=== PATIENT | male | born 1955 | race Caucasian/White ===

== ENCOUNTER → 2017-01-12 | Outpatient (CLI) | payer OTHER ==
[2017-01-12 12:53] LABS: CHLORIDE,CL 107 mmol/L (98-110); SODIUM,NA 142 mmol/L (136-146)
== END ==
LOC: MW.CHIM 12:10
PROVIDERS: ATTEND Internal Medicine
DX: Z12.5 Encounter for screening for malignant neoplasm of prostate (principal); E78.5 Hyperlipidemia, unspecified; I10 Essential (primary) hypertension; E66.9 Obesity, unspecified
CPT/HCPCS: 36415; 80053; 80061; 83036; 84439; 84443; 85025; G0103

== ENCOUNTER 2019-08-04 08:45 | Observation (INO) | payer OTHER ==
[2019-08-04] MEDS ORDERED: Sodium Chloride 0.9% 10 ML Syringe FLUSH PRN (08:48)
[2019-08-04] MEDS ORDERED: Sodium Chloride 0.9% 2.5 ML Syringe FLUSH PRN (08:48)
--- NOTE | 2019-08-04 08:57 | EDM.PDOC ---
ED HPI GENERAL MEDICAL PROBLEM - General Chief Complaint: Chest Pain Stated Complaint: CHEST PAINS Time Seen by Provider: 08/04/19 08:51 Source of Information: Reports: Patient History Limitations: Reports: No Limitations - History of Present Illness INITIAL COMMENTS - FREE TEXT/NARRATIVE: HISTORY AND PHYSICAL: History of present illness: Patient is a 63-year-old male presents to the ED with complaint of chest pain. He states that it began around 4:30 this morning and has gotten a little bit worse which prompted him come to the ED. He reports history of stents 4 years ago. He denies shortness of breath, nausea, vomiting, diaphoresis, abdominal pain. he states that he currently just has some pain when he takes a deep breath. Review of systems: As per history of present illness and below otherwise all systems reviewed and negative. Past medical history: As per history of present illness and as reviewed below otherwise noncontributory. Surgical history: As per history of present illness and as reviewed below otherwise noncontributory. Social history: No reported history of drug or alcohol abuse. Family history: As per history of present illness and as reviewed below otherwise noncontributory. Physical exam: General: Patient sitting comfortably in no acute distress and nontoxic appearing HEENT: Atraumatic, normocephalic, pupils reactive, negative for conjunctival pallor or scleral icterus, mucous membranes moist, throat clear, neck supple, nontender, trachea midline. No meningeal signs. Lungs: Clear to auscultation, breath sounds equal bilaterally, chest nontender. Heart: S1S2, regular, negative for clicks, rubs, or overt murmur. Abdomen: Soft, nondistended, nontender. Negative for masses or hepatosplenomegaly. Negative for costovertebral tenderness. No rigidity, rebound , guarding. Pelvis: Stable nontender. Genitourinary: Deferred. Rectal: Deferred. Extremities: Atraumatic, negative for cords or calf pain. Neurovascular unremarkable. Neuro: Awake, alert, oriented. Cranial nerves II through XII unremarkable. Cerebellum unremarkable. Motor and sensory unremarkable throughout. Exam nonfocal. Notes: Patients blood pressure dropped to 70s/30s and HR dropped in to the 40s after 2 of nitro. Another IV was placed and 2 boluses running, pacer pads placed. Repeat EKG done which is unchanged from prior EKG. Patient still complaining of chest pain that is more substernal, fentanyl and GI cocktail given. Patient states pain is improved and he can take a bigger breath with fentanyl. Diagnostics: CBC, CMP, troponin, PT/INR, EKG, chest x-ray, d-dimer, lactate, blood culture x 2 Therapeutics: 1L NS IV x 2 Nitro x 2 25mcg fentanyl x 2 GI Cocktail Prescriptions: Impression: Chest pain r/o ACS Plan: Discussed with Dr. Arellano, resident hospitalist, patient will be admitted to observation on telemetry r/o ACS. Definitive disposition and diagnosis as appropriate pending reevaluation and review of above. CHest Pain Score (Numeric/FACES): 8 - Related Data Allergies Allergy/AdvReac Type Severity Reaction Status Date / Time Penicillins Allergy Cannot Verified 08/04/19 08:47 Remember ED ROS GENERAL - Review of Systems Review Of Systems: ROS reveals no pertinent complaints other than HPI. ED EXAM, GENERAL - Physical Exam Exam: See Below (see dictation) Course - Vital Signs Last Recorded V/S: Last Vital Signs Temp 97.8 F 08/04/19 08:48 Pulse 76 08/04/19 10:20 Resp 18 08/04/19 10:20 BP 122/61 08/04/19 10:20 Pulse Ox 99 08/04/19 10:20 - Orders/Labs/Meds Orders: Active Orders 24 hr Category Date Time Status Admission Status [Patient Status] [ADT] Stat ADT 08/04/19 11:32 Ordered Cardiac Monitoring [RC] . DIRECTED Care 08/04/19 08:48 Active EKG 12 Lead [EKG Documentation Completion] [RC] STAT Care 08/04/19 10:04 Active EKG Documentation Completion [RC] STAT Care 08/04/19 08:48 Active Chest PE [Ang Chest] [CT] Stat Exams 08/04/19 10:42 Ordered CULTURE BLOOD [BC] Stat Lab 08/04/19 10:18 Received CULTURE BLOOD [BC] Stat Lab 08/04/19 10:20 Results Nitroglycerin [Nitrostat] Med 08/04/19 09:03 Active 0.4 mg SL Q5M PRN Sodium Chloride 0.9% [Saline Flush] Med 08/04/19 08:48 Active 10 ml FLUSH ASDIRECTED PRN Sodium Chloride 0.9% [Saline Flush] Med 08/04/19 08:48 Active 2.5 ml FLUSH ASDIRECTED PRN Blood Culture x2 Reflex Set [OM.PC] Stat Oth 08/04/19 10:25 Ordered Saline Lock Insert [OM.PC] Stat Ot 08/04/19 08:48 Ordered Medication Orders Nitroglycerin (Nitrostat) 0.4 mg SL Q5M PRN PRN Reason: Chest Pain Last Admin: 08/04/19 09:21 Dose: 0.4 mg Admin: 08/04/19 09:16 Dose: 0.4 mg Sodium Chloride (Saline Flush) 10 ml FLUSH ASDIRECTED PRN PRN Reason: Keep Vein Open Last Admin: 08/04/19 08:59 Dose: 10 ml Sodium Chloride (Saline Flush) 2.5 ml FLUSH ASDIRECTED PRN PRN Reason: Keep Vein Open Last Admin: 08/04/19 08:59 Dose: 2.5 ml Labs: Laboratory Tests 08/04/19 08/04/19 08/04/19 Range/Units 08:30 08:30 08:30 WBC 12.21 H (4.0-11.0) K/uL RBC 4.59 (4.50-5.90) M/uL Hgb 14.2 (13.0-17.0) g/dL Hct 42.0 (38.0-50.0) % MCV 91.5 (80.0-98.0) fL MCH 30.9 (27.0-32.0) pg MCHC 33.8 (31.0-37.0) g/dL RDW Std Deviation 43.6 (28.0-62.0) fl RDW Coeff of Dominga 13 (11.0-15.0) % Plt Count 246 (150-400) K/uL MPV 11.10 (7.40-12.00) fL Neut % (Auto) 80.1 H (48.0-80.0) % Lymph % (Auto) 11.1 L (16.0-40.0) % [place] % (Auto) 8.1 (0.0-15.0) % Eos % (Auto) 0.6 (0.0-7.0) % Baso % (Auto) 0.1 (0.0-1.5) % Neut # (Auto) 9.8 H (1.4-5.7) K/uL Lymph # (Auto) 1.4 (0.6-2.4) K/uL [place] # (Auto) 1.0 H (0.0-0.8) K/uL Eos # (Auto) 0.1 (0.0-0.7) K/uL Baso # (Auto) 0.0 (0.0-0.1) K/uL Nucleated RBC % 0.0 /100WBC Nucleated RBCs # 0 K/uL INR 0.96 D-Dimer, Quantitative (0.0-0.50) mg/L FEU Lactate (0.20-2.00) mmol/L Sodium 142 (136-148) mmol/L Potassium 3.7 (3.5-5.1) mmol/L Chloride 105 (98-107) mmol/L Carbon Dioxide 29.5 (21.0-32.0) mmol/L BUN 10 (7.0-18.0) mg/dL Creatinine 1.0 (0.8-1.3) mg/dL Est Cr Clr Drug Dosing 64.92 mL/min Estimated GFR (MDRD) > 60.0 ml/min Glucose 110 H (74-106) mg/dL Calcium 8.7 (8.5-10.1) mg/dL Total Bilirubin 0.6 (0.2-1.0) mg/dL AST 20 (15-37) IU/L ALT 43 (14-63) IU/L Alkaline Phosphatase 77 (46-116) U/L Troponin I < 0.050 (0.000-0.056) ng/mL Total Protein 7.5 (6.4-8.2) g/dL Albumin 3.9 (3.4-5.0) g/dL Globulin 3.6 (2.6-4.0) g/dL Albumin/Globulin Ratio 1.1 (0.9-1.6) 08/04/19 08/04/19 Range/Units 08:48 10:18 WBC (4.0-11.0) K/uL RBC (4.50-5.90) M/uL Hgb (13.0-17.0) g/dL Hct (38.0-50.0) % MCV (80.0-98.0) fL MCH (27.0-32.0) pg MCHC (31.0-37.0) g/dL RDW Std Deviation (28.0-62.0) fl RDW Coeff of Dominga (11.0-15.0) % Plt Count (150-400) K/uL MPV (7.40-12.00) fL Neut % (Auto) (48.0-80.0) % Lymph % (Auto) (16.0-40.0) % [place] % (Auto) (0.0-15.0) % Eos % (Auto) (0.0-7.0) % Baso % (Auto) (0.0-1.5) % Neut # (Auto) (1.4-5.7) K/uL Lymph # (Auto) (0.6-2.4) K/uL [place] # (Auto) (0.0-0.8) K/uL Eos # (Auto) (0.0-0.7) K/uL Baso # (Auto) (0.0-0.1) K/uL Nucleated RBC % /100WBC Nucleated RBCs # K/uL INR D-Dimer, Quantitative 1.20 H (0.0-0.50) mg/L FEU Lactate 1.0 (0.20-2.00) mmol/L Sodium (136-148) mmol/L Potassium (3.5-5.1) mmol/L Chloride (98-107) mmol/L Carbon Dioxide (21.0-32.0) mmol/L BUN (7.0-18.0) mg/dL Creatinine (0.8-1.3) mg/dL Est Cr Clr Drug Dosing mL/min Estimated GFR (MDRD) ml/min Glucose (74-106) mg/dL Calcium (8.5-10.1) mg/dL Total Bilirubin (0.2-1.0) mg/dL AST (15-37) IU/L ALT (14-63) IU/L Alkaline Phosphatase (46-116) U/L Troponin I (0.000-0.056) ng/mL Total Protein (6.4-8.2) g/dL Albumin (3.4-5.0) g/dL Globulin (2.6-4.0) g/dL Albumin/Globulin Ratio (0.9-1.6) Meds: Medications Generic Name Dose Route Start Last Admin Trade Name Freq PRN Reason Stop Dose Admin Nitroglycerin 0.4 mg 08/04/19 09:03 08/04/19 09:21 Nitrostat SL 0.4 mg Q5M PRN Administration Chest Pain Sodium Chloride 10 ml 08/04/19 08:48 08/04/19 08:59 Saline Flush FLUSH 10 ml ASDIRECTED PRN Administration Keep Vein Open Sodium Chloride 2.5 ml 08/04/19 08:48 08/04/19 08:59 Saline Flush FLUSH 2.5 ml ASDIRECTED PRN Administration Keep Vein Open Discontinued Medications Generic Name Dose Route Start Last Admin Trade Name Freq PRN Reason Stop Dose Admin Al Hydroxide/Mg Hydroxide 15 0 ml 08/04/19 09:58 08/04/19 10:21 ml/ Metoclopramide HCl 5 mg/ PO 08/04/19 09:59 5 each Lidocaine HCl 5 ml ONETIME ONE Administration Fentanyl 25 mcg 08/04/19 09:58 08/04/19 10:07 Sublimaze IVPUSH 08/04/19 09:59 25 mcg ONETIME ONE Administration Fentanyl 25 mcg 08/04/19 10:53 08/04/19 11:19 Fentanyl IVPUSH 08/04/19 10:54 25 mcg ONETIME ONE Administration Sodium Chloride 1,000 mls @ 999 mls/hr 08/04/19 09:04 08/04/19 09:14 Normal Saline IV 08/04/19 10:04 999 mls/hr STAT ONE Administration Sodium Chloride 1,000 mls @ 999 mls/hr 08/04/19 09:30 08/04/19 10:20 Normal Saline IV 08/04/19 10:30 999 mls/hr .Bolus ONE Administration Morphine Sulfate 2 mg 08/04/19 09:56 08/04/19 10:02 Morphine IVPUSH 08/04/19 09:57 Not Given ONETIME ONE Departure - Departure Time of Disposition: 11:34 Disposition: Refer to Observation Condition: Good Clinical Impression: Chest pain Referrals: Agustin Begum MD [Primary Care Provider] - Forms: ED Department Discharge - My Orders Last 24 Hours: My Active Orders 08/04/19 08:48 Cardiac Monitoring [RC] . DIRECTED EKG Documentation Completion [RC] STAT Sodium Chloride 0.9% [Saline Flush] 10 ml FLUSH ASDIRECTED PRN Sodium Chloride 0.9% [Saline Flush] 2.5 ml FLUSH ASDIRECTED PRN Saline Lock Insert [OM.PC] Stat 08/04/19 09:03 Nitroglycerin [Nitrostat] 0.4 mg SL Q5M PRN 08/04/19 10:04 EKG 12 Lead [EKG Documentation Completion] [RC] STAT 08/04/19 10:18 CULTURE BLOOD [BC] Stat 08/04/19 10:20 CULTURE BLOOD [BC] Stat 08/04/19 10:25 Blood Culture x2 Reflex Set [OM.PC] Stat 08/04/19 10:42 Chest PE [Ang Chest] [CT] Stat 08/04/19 11:32 Admission Status [Patient Status] [ADT] Stat - Assessment/Plan Last 24 Hours: My Active Orders 08/04/19 08:48 Cardiac Monitoring [RC] . DIRECTED EKG Documentation Completion [RC] STAT Sodium Chloride 0.9% [Saline Flush] 10 ml FLUSH ASDIRECTED PRN Sodium Chloride 0.9% [Saline Flush] 2.5 ml FLUSH ASDIRECTED PRN Saline Lock Insert [OM.PC] Stat 08/04/19 09:03 Nitroglycerin [Nitrostat] 0.4 mg SL Q5M PRN 08/04/19 10:04 EKG 12 Lead [EKG Documentation Completion] [RC] STAT 08/04/19 10:18 CULTURE BLOOD [BC] Stat 08/04/19 10:20 CULTURE BLOOD [BC] Stat 08/04/19 10:25 Blood Culture x2 Reflex Set [OM.PC] Stat 08/04/19 10:42 Chest PE [Ang Chest] [CT] Stat 08/04/19 11:32 Admission Status [Patient Status] [ADT] Stat
[2019-08-04] MEDS ORDERED: Sodium Chloride 0.9% 1,000 ML IV ONE ×2 (09:04→09:30)
[2019-08-04] MEDS: Nitroglycerin 0.4 MG Tab.SL SL PRN ×2 (09:16→09:21)
--- NOTE | 2019-08-04 09:26 | CR ---
Indication: Chest pain. COMPARISON: None. TECHNIQUE: Portable AP chest. FINDINGS: Mild cardiomegaly. No acute pneumonic infiltrates or CHF. No pneumothorax or pleural effusion. Impression: Cardiomegaly. 1. Clear lung noguera. Dictated by Luis Lozada MD @ Aug 04 2019 9:22AM Signed by Dr. Luis Lozada @ Aug 04 2019 9:24AM
[2019-08-04 09:36] LABS: BLOOD UREA NITROGEN,BUN 10 mg/dL (7.0-18.0); CARBON DIOXIDE,CO2 29.5 mmol/L (21.0-32.0); CHLORIDE,CL 105 mmol/L (98-107); GLUCOSE RANDOM 110 mg/dL (74-106); POTASSIUM,K 3.7 mmol/L (3.5-5.1); SODIUM,NA 142 mmol/L (136-148)
[2019-08-04] MEDS ORDERED: Morphine 2 MG/ML Syringe IVPUSH ONE (09:56)
[2019-08-04] MEDS ORDERED: Alum Hydrox/Mag Hydrox/Simeth 15 ML, Metoclopramide 5 MG, Lidocaine 2% 5 ML PO ONE ×3 (09:58)
[2019-08-04] MEDS ORDERED: fentaNYL 100 MCG/2 ML SDV IVPUSH ONE (09:58)
[2019-08-04] MEDS ORDERED: fentaNYL 50 MCG/ML SDV IVPUSH ONE (10:53)
[2019-08-04] MEDS ORDERED: Acetaminophen 325 MG Tab PO PRN (11:43)
[2019-08-04] MEDS ORDERED: Ondansetron 4 MG Tab.DIS PO PRN (11:43)
[2019-08-04] MEDS ORDERED: Ondansetron 4 MG/2 ML SDV IVPUSH PRN (11:43)
[2019-08-04] MEDS ORDERED: Temazepam 15 MG Cap PO PRN (11:43)
--- NOTE | 2019-08-04 11:49 | PCM.HP.2 ---
H&P History of Present Illness - General Date of Service: 08/04/19 Admit Problem/Dx: Admission Diagnosis/Problem Admission Diagnosis/Problem Chest pain - History of Present Illness Initial Comments - Free Text/Narative: 63 y/o male with history of CAD s/p stent placement 5 years ago. Presenting to the ER complaining of sharp upper chest pain that started this morning. Patient woke up this morning after his dog woke him up and he states that shortly after he started having sharp upper chest pain. No radiation to neck or arm. Lasting few minutes. states worse with inspirations. Denies any trauma to chest. He does have history of asthma for which he takes Advair and albuterol. Denies any cough, fevers. No abdominal pain, dysuria, diarrhea. Has been taking his medications as directed. No smoking. Occasional alcohol. In the ER, he was given nitroglycerin which lowered his BP to SBP 80's. Low BP resolved after fluids. Troponin was negative. EKG did not show any significant ST changes. D-dimer was elevated and CT angio was ordered which patient was unable to do because of poor veins. I spoke with the patient and he states he would like to retry again since he is still having pleuritic chest pain. CHest Pain Score (Numeric/FACES): 8 - Related Data Allergies/Adverse Reactions: Allergies Allergy/AdvReac Type Severity Reaction Status Date / Time Penicillins Allergy Airway Verified 08/04/19 14:16 Tightness Home Medications: Home Meds Albuterol [Ventolin HFA] 2 puff INH ASDIRECTED PRN 08/04/19 [History] Clopidogrel [Plavix] 75 mg PO DAILY 08/04/19 [History] Fluticasone/Salmeterol [Advair 250-50] 1 puff IH DAILY 08/04/19 [History] Lisinopril 5 mg PO DAILY 08/04/19 [History] Metoprolol Succinate [Toprol XL 50mg] 50 mg PO DAILY 08/04/19 [History] atorvaSTATin Calcium [Atorvastatin Calcium] 20 mg PO BEDTIME 08/04/19 [History] Past Medical History HEENT History: Reports: Impaired Vision Cardiovascular History: Reports: High Cholesterol, Hypertension, [place] Respiratory History: Reports: Asthma Musculoskeletal History: Reports: None Neurological History: Reports: CVA Psychiatric History: Reports: Depression - Infectious Disease History Infectious Disease History: Reports: Shingles - Past Surgical History HEENT Surgical History: Reports: None Cardiovascular Surgical History: Reports: Coronary Artery Stent Respiratory Surgical History: Reports: None Neurological Surgical History: Reports: None Musculoskeletal Surgical History: Reports: Knee Replacement Other Musculoskeletal Surgeries/Procedures:: Left knee Social & Family History - Family History Family Medical History: Noncontributory - Tobacco Use Smoking Status *Q: Never Smoker - Caffeine Use Caffeine Use: Reports: Tea - Recreational Drug Use Recreational Drug Use: No H&P Review of Systems - Review of Systems: Review Of Systems: ROS reveals no pertinent complaints other than HPI. Exam - Exam Exam: See Below - Vital Signs Vital Signs: Last Vital Signs Temp 36.6 C 08/04/19 08:48 Pulse 76 08/04/19 10:20 Resp 18 08/04/19 10:20 BP 122/61 08/04/19 10:20 Pulse Ox 99 08/04/19 10:20 Weight: 103.6 kg - Exam General: Alert, Oriented, Cooperative HEENT: Conjunctiva Clear, Posterior Pharynx Clear Lungs: Other (decreased breath sounds bilaterally. No full expansion due to pain. No wheezing. Some bibasilar crackles.) Cardiovascular: Regular Rate, Regular Rhythm GI/Abdominal Exam: Normal Bowel Sounds, Soft, Non-Tender Extremities: Normal Inspection, No Pedal Edema Skin: Warm, Dry - Patient Data Lab Results Last 24 hrs: Laboratory Results - last 24 hr 08/04/19 08/04/19 08/04/19 Range/Units 08:30 08:30 08:30 WBC 12.21 H (4.0-11.0) K/uL RBC 4.59 (4.50-5.90) M/uL Hgb 14.2 (13.0-17.0) g/dL Hct 42.0 (38.0-50.0) % MCV 91.5 (80.0-98.0) fL MCH 30.9 (27.0-32.0) pg MCHC 33.8 (31.0-37.0) g/dL RDW Std Deviation 43.6 (28.0-62.0) fl RDW Coeff of Dominga 13 (11.0-15.0) % Plt Count 246 (150-400) K/uL MPV 11.10 (7.40-12.00) fL Neut % (Auto) 80.1 H (48.0-80.0) % Lymph % (Auto) 11.1 L (16.0-40.0) % [place] % (Auto) 8.1 (0.0-15.0) % Eos % (Auto) 0.6 (0.0-7.0) % Baso % (Auto) 0.1 (0.0-1.5) % Neut # (Auto) 9.8 H (1.4-5.7) K/uL Lymph # (Auto) 1.4 (0.6-2.4) K/uL [place] # (Auto) 1.0 H (0.0-0.8) K/uL Eos # (Auto) 0.1 (0.0-0.7) K/uL Baso # (Auto) 0.0 (0.0-0.1) K/uL Nucleated RBC % 0.0 /100WBC Nucleated RBCs # 0 K/uL INR 0.96 D-Dimer, Quantitative (0.0-0.50) mg/L FEU Lactate (0.20-2.00) mmol/L Sodium 142 (136-148) mmol/L Potassium 3.7 (3.5-5.1) mmol/L Chloride 105 (98-107) mmol/L Carbon Dioxide 29.5 (21.0-32.0) mmol/L BUN 10 (7.0-18.0) mg/dL Creatinine 1.0 (0.8-1.3) mg/dL Est Cr Clr Drug Dosing 64.92 mL/min Estimated GFR (MDRD) > 60.0 ml/min Glucose 110 H (74-106) mg/dL Calcium 8.7 (8.5-10.1) mg/dL Total Bilirubin 0.6 (0.2-1.0) mg/dL AST 20 (15-37) IU/L ALT 43 (14-63) IU/L Alkaline Phosphatase 77 (46-116) U/L Troponin I < 0.050 (0.000-0.056) ng/mL Total Protein 7.5 (6.4-8.2) g/dL Albumin 3.9 (3.4-5.0) g/dL Globulin 3.6 (2.6-4.0) g/dL Albumin/Globulin Ratio 1.1 (0.9-1.6) 08/04/19 08/04/19 Range/Units 08:48 10:18 WBC (4.0-11.0) K/uL RBC (4.50-5.90) M/uL Hgb (13.0-17.0) g/dL Hct (38.0-50.0) % MCV (80.0-98.0) fL MCH (27.0-32.0) pg MCHC (31.0-37.0) g/dL RDW Std Deviation (28.0-62.0) fl RDW Coeff of Doming[place] (11.0-15.0) % Plt Count (150-400) K/uL MPV (7.40-12.00) fL Neut % (Auto) (48.0-80.0) % Lymph % (Auto) (16.0-40.0) % [place] % (Auto) (0.0-15.0) % Eos % (Auto) (0.0-7.0) % Baso % (Auto) (0.0-1.5) % Neut # (Auto) (1.4-5.7) K/uL Lymph # (Auto) (0.6-2.4) K/uL [place] # (Auto) (0.0-0.8) K/uL Eos # (Auto) (0.0-0.7) K/uL Baso # (Auto) (0.0-0.1) K/uL Nucleated RBC % /100WBC Nucleated RBCs # K/uL INR D-Dimer, Quantitative 1.20 H (0.0-0.50) mg/L FEU Lactate 1.0 (0.20-2.00) mmol/L Sodium (136-148) mmol/L Potassium (3.5-5.1) mmol/L Chloride (98-107) mmol/L Carbon Dioxide (21.0-32.0) mmol/L BUN (7.0-18.0) mg/dL Creatinine (0.8-1.3) mg/dL Est Cr Clr Drug Dosing mL/min Estimated GFR (MDRD) ml/min Glucose (74-106) mg/dL Calcium (8.5-10.1) mg/dL Total Bilirubin (0.2-1.0) mg/dL AST (15-37) IU/L ALT (14-63) IU/L Alkaline Phosphatase (46-116) U/L Troponin I (0.000-0.056) ng/mL Total Protein (6.4-8.2) g/dL Albumin (3.4-5.0) g/dL Globulin (2.6-4.0) g/dL Albumin/Globulin Ratio (0.9-1.6) Result Diagrams: 08/04/19 08:30 08/04/19 08:30 [place] Results Last 24 hrs: Microbiology 08/04/19 10:20 Anaerobic Blood Culture - Final Blood - Venous - Lab Draw Problem List Initiated/Reviewed/Updated: Yes Orders Last 24hrs: Active Orders 24 hr Category Date Time Status Admission Status [Patient Status] [ADT] Stat ADT 08/04/19 11:32 Active Cardiac Monitoring [RC] . DIRECTED Care 08/04/19 08:48 Active EKG 12 Lead [EKG Documentation Completion] [RC] STAT Care 08/04/19 10:04 Active EKG Documentation Completion [RC] STAT Care 08/04/19 08:48 Active Intake and Output [RC] QSHIFT Care 08/04/19 11:45 Active Oxygen Therapy [RC] PRN Care 08/04/19 11:43 Active Up With Assistance [RC] ASDIRECTED Care 08/04/19 11:43 Active VTE/DVT Education [RC] PER UNIT ROUTINE Care 08/04/19 11:43 Active Vital Signs [RC] Q4H Care 08/04/19 11:43 Active Heart Healthy Diet [DIET] Diet 08/04/19 Lunch Active Chest PE [Ang Chest] [CT] Stat Exams 08/04/19 10:42 Ordered CULTURE BLOOD [BC] Stat Lab 08/04/19 10:18 Received CULTURE BLOOD [BC] Stat Lab 08/04/19 10:20 Results TROPONIN I [CHEM] Q6H Lab 08/04/19 14:00 Ordered TROPONIN I [CHEM] Q6H Lab 08/04/19 20:00 Ordered Acetaminophen [Tylenol] Med 08/04/19 11:43 Active 650 mg PO Q4H PRN Enoxaparin [Lovenox] Med 08/04/19 11:45 Active 40 mg SUBCUT Q24H Morphine Med 08/04/19 11:43 Active 2 mg IVPUSH Q2H PRN Nitroglycerin [Nitrostat] Med 08/04/19 09:03 Active 0.4 mg SL Q5M PRN Ondansetron [Zofran ODT] Med 08/04/19 11:43 Active 4 mg PO Q4H PRN Ondansetron [Zofran] Med 08/04/19 11:43 Active 4 mg IVPUSH Q4H PRN Sodium Chloride 0.9% [Saline Flush] Med 08/04/19 08:48 Active 10 ml FLUSH ASDIRECTED PRN Sodium Chloride 0.9% [Saline Flush] Med 08/04/19 08:48 Active 2.5 ml FLUSH ASDIRECTED PRN Temazepam [Restoril] Med 08/04/19 11:43 Active 15 mg PO BEDTIME PRN Blood Culture x2 Reflex Set [OM.PC] Stat Oth 08/04/19 10:25 Ordered Saline Lock Insert [OM.PC] Stat Oth 08/04/19 08:48 Ordered Resuscitation Status Routine Resus Stat 08/04/19 11:43 Ordered Medication Orders Acetaminophen (Tylenol) 650 mg PO Q4H PRN PRN Reason: Pain (Mild 1-3)/fever Enoxaparin Sodium (Lovenox) 40 mg SUBCUT Q24H GERALDINE Morphine Sulfate (Morphine) 2 mg IVPUSH Q2H PRN PRN Reason: Pain (severe 7-10) Stop: 08/05/19 11:46 Nitroglycerin (Nitrostat) 0.4 mg SL Q5M PRN PRN Reason: Chest Pain Last Admin: 08/04/19 09:21 Dose: 0.4 mg Admin: 08/04/19 09:16 Dose: 0.4 mg Ondansetron HCl (Zofran Odt) 4 mg PO Q4H PRN PRN Reason: nausea, able to take PO Ondansetron HCl (Zofran) 4 mg IVPUSH Q4H PRN PRN Reason: Nausea Sodium Chloride (Saline Flush) 10 ml FLUSH ASDIRECTED PRN PRN Reason: Keep Vein Open Last Admin: 08/04/19 08:59 Dose: 10 ml Sodium Chloride (Saline Flush) 2.5 ml FLUSH ASDIRECTED PRN PRN Reason: Keep Vein Open Last Admin: 08/04/19 08:59 Dose: 2.5 ml Temazepam (Restoril) 15 mg PO BEDTIME PRN PRN Reason: Sleep Assessment/Plan Comment:: A: 1. Chest pain, rule out ACS 2. Elevated d-dimer 3. PMH CAD s/p stent placement, asthma P: 1. Will repeat CT chest w contrast due to patients continued pleuritic chest pain to rule out PE. In addition, will trend troponins. Monitor telemetry. Morphine, nitroglycerin PRN for chest pain. will resume his home meds which include plavix, aspirin. If CT chest is negative, will start steroids and see if that helps with his respiratory symptoms. Dispo: 1-2 days.
[2019-08-04] MEDS ORDERED: Albuterol/Ipratropium 3.0-0.5 MG/3 ML Neb Soln NEB ONE (13:19)
[2019-08-04] MEDS: Morphine 10 MG/ML Syringe IVPUSH PRN ×3 (13:31→21:29)
[2019-08-04] MEDS: Enoxaparin 40 MG/0.4 ML Syringe SUBCUT SCH (13:38)
[2019-08-04] MEDS ORDERED: Albuterol 8 GM Inhaler INH PRN (15:22)
--- NOTE | 2019-08-04 17:06 | CT ---
INDICATION: Chest pain, elevated D-dimer TECHNIQUE: CT chest pulmonary PE protocol acquired with 50 cc Isovue 370 IV contrast. COMPARISON: None FINDINGS: Cardiovascular structures: Normal vascular enhancement of the pulmonary arteries, no sign of pulmonary embolism. Cardiomegaly. Coronary artery calcifications. No sign of aneurysm in the thoracic aorta. Mediastinum and corine: No mass or adenopathy. Small hiatal hernia. Lungs: Clear. Pleura and pericardium: Moderate-sized pericardial effusion measures 15 Hounsfield units in density. Trace bilateral pleural effusions. Chest wall and axilla: No mass or adenopathy. Upper abdomen: Unremarkable. Bones: No significant findings. IMPRESSION: No pulmonary embolism or pneumonia. Moderate-sized serous pericardial effusion. Cardiomegaly with coronary artery disease. Trace bilateral pleural effusions. Small hiatal hernia. Please note that all CT scans at this facility use dose modulation, iterative reconstruction, and/or weight-based dosing when appropriate to reduce radiation dose to as low as reasonably achievable. Dictated by Elissa Briones MD @ Aug 04 2019 4:47PM Signed by Dr. Elissa Briones @ Aug 04 2019 5:04PM
[2019-08-04] MEDS ORDERED: Iopamidol 755 MG/ML 500 ML Multipack Bottle IVPUSH STA (17:45)
[2019-08-04] MEDS: Ibuprofen 600 MG Tab PO SCH (19:17)
[2019-08-04] MEDS: atorvaSTATin 20 MG Tab PO SCH (21:27)
[2019-08-05] MEDS: Ibuprofen 600 MG Tab PO SCH (02:40)
[2019-08-05 06:09] LABS: BLOOD UREA NITROGEN,BUN 13 mg/dL (7.0-18.0); CARBON DIOXIDE,CO2 25.8 mmol/L (21.0-32.0); CHLORIDE,CL 107 mmol/L (98-107); GLUCOSE RANDOM 105 mg/dL (74-106); POTASSIUM,K 3.8 mmol/L (3.5-5.1); SODIUM,NA 142 mmol/L (136-148)
[2019-08-05] MEDS: Albuterol/Ipratropium 3.0-0.5 MG/3 ML Neb Soln NEB PRN ×2 (07:56→19:32)
[2019-08-05] MEDS: SALMETEROL INH SCH (08:05)
[2019-08-05] MEDS: FLUTICASONE INH SCH (08:05)
[2019-08-05] MEDS ORDERED: Aspirin 81 MG Tab.Chew PO SCH (09:00)
[2019-08-05] MEDS: Pantoprazole 40 MG Tab.CR PO SCH (09:56)
[2019-08-05] MEDS: Clopidogrel 75 MG Tab PO SCH (09:56)
[2019-08-05] MEDS: Aspirin 325 MG Tab.EC PO SCH ×2 (09:57→17:50)
[2019-08-05] MEDS: Lisinopril 5 MG Tab PO SCH (09:57)
[2019-08-05] MEDS: Metoprolol Succinate 50 MG Tab.ER PO SCH (10:03)
[2019-08-05] MEDS: Enoxaparin 40 MG/0.4 ML Syringe SUBCUT SCH (11:51)
--- NOTE | 2019-08-05 13:47 | PCM.PN ---
<Camron Salazar - Last Filed: 08/05/19 13:41> - General Info Date of Service: 08/05/19 Subjective Update: No acute events overnight. feeling better this morning. states chest pain has improved. No fevers. - Patient Data Vitals - Most Recent: Last Vital Signs Temp 36.9 C 08/05/19 11:49 Pulse 92 08/05/19 11:49 Resp 17 08/05/19 11:49 BP 129/71 08/05/19 11:49 Pulse Ox 96 08/05/19 11:49 Weight - Most Recent: 103.6 kg I&O - Last 24 Hours: Intake & Output 08/04/19 08/05/19 08/05/19 22:59 06:59 14:59 Intake Total 500 250 Output Total 200 Balance 300 250 Lab Results Last 24 Hours: Laboratory Results - last 24 hr 08/04/19 08/04/19 08/04/19 Range/Units 08:30 08:30 14:12 WBC (4.0-11.0) K/uL RBC (4.50-5.90) M/uL Hgb (13.0-17.0) g/dL Hct (38.0-50.0) % MCV (80.0-98.0) fL MCH (27.0-32.0) pg MCHC (31.0-37.0) g/dL RDW Std Deviation (28.0-62.0) fl RDW Coeff of Doming[place] (11.0-15.0) % Plt Count (150-400) K/uL MPV (7.40-12.00) fL Neut % (Auto) (48.0-80.0) % Lymph % (Auto) (16.0-40.0) % [place] % (Auto) (0.0-15.0) % Eos % (Auto) (0.0-7.0) % Baso % (Auto) (0.0-1.5) % Neut # (Auto) (1.4-5.7) K/uL Lymph # (Auto) (0.6-2.4) K/uL [place] # (Auto) (0.0-0.8) K/uL Eos # (Auto) (0.0-0.7) K/uL Baso # (Auto) (0.0-0.1) K/uL Nucleated RBC % /100WBC Nucleated RBCs # K/uL ESR 27 H (0-19) mm/hr Sodium (136-148) mmol/L Potassium (3.5-5.1) mmol/L Chloride (98-107) mmol/L Carbon Dioxide (21.0-32.0) mmol/L BUN (7.0-18.0) mg/dL Creatinine (0.8-1.3) mg/dL Est Cr Clr Drug Dosing mL/min Estimated GFR (MDRD) ml/min Glucose (74-106) mg/dL Calcium (8.5-10.1) mg/dL Total Bilirubin (0.2-1.0) mg/dL AST (15-37) IU/L ALT (14-63) IU/L Alkaline Phosphatase (46-116) U/L Troponin I < 0.050 (0.000-0.056) ng/mL C-Reactive Protein 3.80 H (0.00-0.90) mg/dL Total Protein (6.4-8.2) g/dL Albumin (3.4-5.0) g/dL Globulin (2.6-4.0) g/dL Albumin/Globulin Ratio (0.9-1.6) 08/04/19 08/05/19 08/05/19 Range/Units 20:11 05:40 05:40 WBC 9.80 (4.0-11.0) K/uL RBC 3.88 L (4.50-5.90) M/uL Hgb 11.9 L (13.0-17.0) g/dL Hct 35.6 L (38.0-50.0) % MCV 91.8 (80.0-98.0) fL MCH 30.7 (27.0-32.0) pg MCHC 33.4 (31.0-37.0) g/dL RDW Std Deviation 44.6 (28.0-62.0) fl RDW Coeff of Doming[place] 13 (11.0-15.0) % Plt Count 206 (150-400) K/uL MPV 10.40 (7.40-12.00) fL Neut % (Auto) 69.9 (48.0-80.0) % Lymph % (Auto) 15.8 L (16.0-40.0) % [place] % (Auto) 13.9 (0.0-15.0) % Eos % (Auto) 0.3 (0.0-7.0) % Baso % (Auto) 0.1 (0.0-1.5) % Neut # (Auto) 6.9 H (1.4-5.7) K/uL Lymph # (Auto) 1.6 (0.6-2.4) K/uL [place] # (Auto) 1.4 H (0.0-0.8) K/uL Eos # (Auto) 0.0 (0.0-0.7) K/uL Baso # (Auto) 0.0 (0.0-0.1) K/uL Nucleated RBC % 0.0 /100WBC Nucleated RBCs # 0 K/uL ESR (0-19) mm/hr Sodium 142 (136-148) mmol/L Potassium 3.8 (3.5-5.1) mmol/L Chloride 107 (98-107) mmol/L Carbon Dioxide 25.8 (21.0-32.0) mmol/L BUN 13 (7.0-18.0) mg/dL Creatinine 1.0 (0.8-1.3) mg/dL Est Cr Clr Drug Dosing 67.34 mL/min Estimated GFR (MDRD) > 60.0 ml/min Glucose 105 (74-106) mg/dL Calcium 8.4 L (8.5-10.1) mg/dL Total Bilirubin 1.4 H (0.2-1.0) mg/dL AST 10 L (15-37) IU/L ALT 27 (14-63) IU/L Alkaline Phosphatase 56 (46-116) U/L Troponin I < 0.050 (0.000-0.056) ng/mL C-Reactive Protein (0.00-0.90) mg/dL Total Protein 6.1 L (6.4-8.2) g/dL Albumin 3.1 L (3.4-5.0) g/dL Globulin 3.0 (2.6-4.0) g/dL Albumin/Globulin Ratio 1.0 (0.9-1.6) 08/05/19 08/05/19 Range/Units 05:40 05:40 WBC (4.0-11.0) K/uL RBC (4.50-5.90) M/uL Hgb (13.0-17.0) g/dL Hct (38.0-50.0) % MCV (80.0-98.0) fL MCH (27.0-32.0) pg MCHC (31.0-37.0) g/dL RDW Std Deviation (28.0-62.0) fl RDW Coeff of Dominga (11.0-15.0) % Plt Count (150-400) K/uL MPV (7.40-12.00) fL Neut % (Auto) (48.0-80.0) % Lymph % (Auto) (16.0-40.0) % [place] % (Auto) (0.0-15.0) % Eos % (Auto) (0.0-7.0) % Baso % (Auto) (0.0-1.5) % Neut # (Auto) (1.4-5.7) K/uL Lymph # (Auto) (0.6-2.4) K/uL [place] # (Auto) (0.0-0.8) K/uL Eos # (Auto) (0.0-0.7) K/uL Baso # (Auto) (0.0-0.1) K/uL Nucleated RBC % /100WBC Nucleated RBCs # K/uL ESR 38 H (0-19) mm/hr Sodium (136-148) mmol/L Potassium (3.5-5.1) mmol/L Chloride (98-107) mmol/L Carbon Dioxide (21.0-32.0) mmol/L BUN (7.0-18.0) mg/dL Creatinine (0.8-1.3) mg/dL Est Cr Clr Drug Dosing mL/min Estimated GFR (MDRD) ml/min Glucose (74-106) mg/dL Calcium (8.5-10.1) mg/dL Total Bilirubin (0.2-1.0) mg/dL AST (15-37) IU/L ALT (14-63) IU/L Alkaline Phosphatase (46-116) U/L Troponin I (0.000-0.056) ng/mL C-Reactive Protein 17.00 H (0.00-0.90) mg/dL Total Protein (6.4-8.2) g/dL Albumin (3.4-5.0) g/dL Globulin (2.6-4.0) g/dL Albumin/Globulin Ratio (0.9-1.6) [place] Results Last 24 Hours: Microbiology 08/04/19 10:20 Aerobic Blood Culture - Preliminary Blood - Venous - Lab Draw NO GROWTH AFTER 1 DAY Anaerobic Blood Culture - Final 08/04/19 10:18 Aerobic Blood Culture - Preliminary Blood - Venous NO GROWTH AFTER 1 DAY Anaerobic Blood Culture - Preliminary NO GROWTH AFTER 1 DAY Med Orders - Current: Current Medications Acetaminophen (Tylenol) 650 mg PO Q4H PRN PRN Reason: Pain (Mild 1-3)/fever Albuterol (Ventolin Hfa) 0 gm INH Q6H PRN PRN Reason: Wheezing Albuterol/Ipratropium (Duoneb 3.0-0.5 Mg/3 Ml) 3 ml NEB Q4HRRT PRN PRN Reason: sob, wheezingh Last Admin: 08/05/19 07:56 Dose: 3 ml Aspirin (Ecotrin) 650 mg PO Q8H [facility] Last Admin: 08/05/19 09:57 Dose: 650 mg Atorvastatin Calcium (Lipitor) 20 mg PO BEDTIME [facility] Last Admin: 08/04/19 21:27 Dose: 20 mg Clopidogrel Bisulfate (Plavix) 75 mg PO DAILY [facility] Last Admin: 08/05/19 09:56 Dose: 75 mg Enoxaparin Sodium (Lovenox) 40 mg SUBCUT Q24H [facility] Last Admin: 08/05/19 11:51 Dose: 40 mg Influenza Virus Vaccine (Fluzone Quad 3036-0809 Syringe) 60 mcg IM .ONCE ONE Stop: 08/05/19 14:16 Lisinopril (Prinivil) 5 mg PO DAILY [facility] Last Admin: 08/05/19 09:57 Dose: 5 mg Metoprolol Succinate (Toprol Xl) 50 mg PO DAILY [facility] Last Admin: 08/05/19 10:03 Dose: 50 mg Ondansetron HCl (Zofran Odt) 4 mg PO Q4H PRN PRN Reason: nausea, able to take PO Ondansetron HCl (Zofran) 4 mg IVPUSH Q4H PRN PRN Reason: Nausea Pantoprazole Sodium (Protonix) 40 mg PO ACBREAKFAST [facility] Last Admin: 08/05/19 09:56 Dose: 40 mg Fluticasone/Salmeterol (Advair Diskus 250-50) 0 puff INH DAILY [facility] Last Admin: 08/05/19 08:05 Dose: 1 inhalation Sodium Chloride (Saline Flush) 10 ml FLUSH ASDIRECTED PRN PRN Reason: Keep Vein Open Last Admin: 08/04/19 08:59 Dose: 10 ml Sodium Chloride (Saline Flush) 2.5 ml FLUSH ASDIRECTED PRN PRN Reason: Keep Vein Open Last Admin: 08/04/19 08:59 Dose: 2.5 ml Temazepam (Restoril) 15 mg PO BEDTIME PRN PRN Reason: Sleep Discontinued Medications Albuterol/Ipratropium (Duoneb 3.0-0.5 Mg/3 Ml) 3 ml NEB ONETIME ONE Stop: 08/04/19 13:20 Last Admin: 08/04/19 13:33 Dose: 3 ml Aspirin (Aspirin) 81 mg PO DAILY [facility] Last Admin: 08/05/19 10:36 Dose: Not Given Al Hydroxide/Mg Hydroxide 15 ml/ Metoclopramide HCl 5 mg/Lidocaine HCl 5 ml 0 ml PO ONETIME ONE Stop: 08/04/19 09:59 Last Admin: 08/04/19 10:21 Dose: 5 each Fentanyl (Sublimaze) 25 mcg IVPUSH ONETIME ONE Stop: 08/04/19 09:59 Last Admin: 08/04/19 10:07 Dose: 25 mcg Fentanyl (Fentanyl) 25 mcg IVPUSH ONETIME ONE Stop: 08/04/19 10:54 Last Admin: 08/04/19 11:19 Dose: 25 mcg Sodium Chloride (Normal Saline) 1,000 mls @ 999 mls/hr IV STAT ONE Stop: 08/04/19 10:04 Last Admin: 08/04/19 09:14 Dose: 999 mls/hr Sodium Chloride (Normal Saline) 1,000 mls @ 999 mls/hr IV .Bolus ONE Stop: 08/04/19 10:30 Last Admin: 08/04/19 10:20 Dose: 999 mls/hr Ibuprofen (Motrin) 600 mg PO Q8H [facility] Last Admin: 08/05/19 02:40 Dose: 600 mg Influenza Virus Vaccine (Pharmacy To Dose - Influenza Vaccine) 1 each IM ONETIME ONE Stop: 08/04/19 14:10 Last Admin: 08/04/19 15:53 Dose: Not Given Iopamidol (Isovue Multipack-370 (76%)) 50 ml IVPUSH ONETIME STA Stop: 08/04/19 17:46 Last Admin: 08/04/19 17:46 Dose: 50 ml Morphine Sulfate (Morphine) 2 mg IVPUSH ONETIME ONE Stop: 08/04/19 09:57 Last Admin: 08/04/19 10:02 Dose: Not Given Morphine Sulfate (Morphine) 2 mg IVPUSH Q2H PRN PRN Reason: Pain (severe 7-10) Stop: 08/05/19 11:46 Last Admin: 08/04/19 21:29 Dose: 2 mg Nitroglycerin (Nitrostat) 0.4 mg SL Q5M PRN PRN Reason: Chest Pain Last Admin: 08/04/19 09:21 Dose: 0.4 mg - Exam General: Alert, Oriented, Cooperative, No Acute Distress Lungs: Clear to Auscultation, Normal Respiratory Effort. No: Crackles, Wheezing GI/Abdominal Exam: Normal Bowel Sounds, Soft, Non-Tender, No Distention Extremities: Normal Inspection, Pedal Edema Skin: Warm, Dry - Problem List Review Problem List Initiated/Reviewed/Updated: Yes - My Orders Last 24 Hours: My Active Orders 08/04/19 13:19 RT Aerosol Therapy [RC] ASDIRECTED 08/04/19 13:47 Albuterol/Ipratropium [DuoNeb 3.0-0.5 MG/3 ML] 3 ml NEB Q4HRRT PRN 08/04/19 15:22 Albuterol [Ventolin HFA] 0 gm INH Q6H PRN 08/04/19 15:25 Echo Comp wo Cont [US] Routine 08/04/19 21:00 atorvaSTATin [Lipitor] 20 mg PO BEDTIME 08/05/19 09:00 Clopidogrel [Plavix] 75 mg PO DAILY Fluticasone/Salmeterol [Advair Diskus 250-50] 0 puff INH DAILY Lisinopril [Prinivil] 5 mg PO DAILY Metoprolol Succinate [Toprol XL] 50 mg PO DAILY 08/05/19 09:15 Aspirin [Ecotrin] 650 mg PO Q8H Pantoprazole [ProTONIX] 40 mg PO ACBREAKFAST - Plan Plan:: A: 1. Acute pericarditis 2. Moderate pericardial effusion 3. Elevated inflammatory markers 4. Chest pain, ruled out ACS, negative troponins 5. PMH CAD s/p stent placement, asthma P: 1. acute pericarditis- will start aspirin 650 mg PO Q8H. Tried calling Dr. Luis today but he is in [place]. Will continue to monitor today and call Dr. Luis tomorrow to evaluate pericardial effusion. 2. CAD s/p stents- continue with home meds for now. dispo: likely dc tomorrow <Vincent Coreas - Last Filed: 08/06/19 14:09> - Patient Data Vitals - Most Recent: Last Vital Signs Temp 36.8 C 08/06/19 11:59 Pulse 98 08/06/19 11:59 Resp 20 08/06/19 11:59 BP 127/67 08/06/19 11:59 Pulse Ox 97 08/06/19 11:59 I&O - Last 24 Hours: Intake & Output 08/05/19 08/06/19 08/06/19 22:59 06:59 14:59 Intake Total 1010 750 Output Total 680 500 Balance 330 250 Lab Results Last 24 Hours: Laboratory Results - last 24 hr 08/06/19 08/06/19 Range/Units 05:23 05:23 WBC 9.63 (4.0-11.0) K/uL RBC 4.02 L (4.50-5.90) M/uL Hgb 12.3 L (13.0-17.0) g/dL Hct 36.5 L (38.0-50.0) % MCV 90.8 (80.0-98.0) fL MCH 30.6 (27.0-32.0) pg MCHC 33.7 (31.0-37.0) g/dL RDW Std Deviation 43.5 (28.0-62.0) fl RDW Coeff of [place]ing[place] 13 (11.0-15.0) % Plt Count 220 (150-400) K/uL MPV 10.50 (7.40-12.00) fL Neut % (Auto) 68.0 (48.0-80.0) % Lymph % (Auto) 18.5 (16.0-40.0) % [place] % (Auto) 12.9 (0.0-15.0) % Eos % (Auto) 0.5 (0.0-7.0) % Baso % (Auto) 0.1 (0.0-1.5) % Neut # (Auto) 6.6 H (1.4-5.7) K/uL Lymph # (Auto) 1.8 (0.6-2.4) K/uL [place] # (Auto) 1.2 H (0.0-0.8) K/uL Eos # (Auto) 0.1 (0.0-0.7) K/uL Baso # (Auto) 0.0 (0.0-0.1) K/uL Nucleated RBC % 0.0 /100WBC Nucleated RBCs # 0 K/uL ESR 59 H (0-19) mm/hr Sodium 142 (136-148) mmol/L Potassium 3.7 (3.5-5.1) mmol/L Chloride 105 (98-107) mmol/L Carbon Dioxide 25.1 (21.0-32.0) mmol/L BUN 13 (7.0-18.0) mg/dL Creatinine 1.0 (0.8-1.3) mg/dL Est Cr Clr Drug Dosing 67.34 mL/min Estimated GFR (MDRD) > 60.0 ml/min Glucose 100 (74-106) mg/dL Calcium 8.3 L (8.5-10.1) mg/dL Total Bilirubin 1.1 H (0.2-1.0) mg/dL AST 14 L (15-37) IU/L ALT 33 (14-63) IU/L Alkaline Phosphatase 70 (46-116) U/L C-Reactive Protein 18.70 H (0.00-0.90) mg/dL Total Protein 6.3 L (6.4-8.2) g/dL Albumin 2.9 L (3.4-5.0) g/dL Globulin 3.4 (2.6-4.0) g/dL Albumin/Globulin Ratio 0.9 (0.9-1.6) [place] Results Last 24 Hours: Microbiology 08/04/19 10:20 Aerobic Blood Culture - Preliminary Blood - Venous - Lab Draw NO GROWTH AFTER 2 DAYS Anaerobic Blood Culture - Final 08/04/19 10:18 Aerobic Blood Culture - Preliminary Blood - Venous NO GROWTH AFTER 2 DAYS Anaerobic Blood Culture - Preliminary NO GROWTH AFTER 2 DAYS Med Orders - Current: Current Medications Acetaminophen (Tylenol) 650 mg PO Q4H PRN PRN Reason: Pain (Mild 1-3)/fever Albuterol (Ventolin Hfa) 0 gm INH Q6H PRN PRN Reason: Wheezing Albuterol/Ipratropium (Duoneb 3.0-0.5 Mg/3 Ml) 3 ml NEB Q4HRRT PRN PRN Reason: sob, wheezingh Last Admin: 08/05/19 19:32 Dose: 3 ml Aspirin (Ecotrin) 650 mg PO Q8H [facility] Last Admin: 08/06/19 08:14 Dose: 650 mg Atorvastatin Calcium (Lipitor) 20 mg PO BEDTIME [facility] Last Admin: 08/05/19 21:15 Dose: 20 mg Clopidogrel Bisulfate (Plavix) 75 mg PO DAILY [facility] Last Admin: 08/06/19 08:15 Dose: 75 mg Colchicine (Colcrys) 0.6 mg PO BID [facility] Last Admin: 08/06/19 11:01 Dose: 0.6 mg Enoxaparin Sodium (Lovenox) 40 mg SUBCUT Q24H [facility] Last Admin: 08/06/19 11:00 Dose: 40 mg Lisinopril (Prinivil) 5 mg PO DAILY [facility] Last Admin: 08/06/19 08:15 Dose: 5 mg Metoprolol Succinate (Toprol Xl) 50 mg PO DAILY [facility] Last Admin: 08/06/19 08:14 Dose: 50 mg Ondansetron HCl (Zofran Odt) 4 mg PO Q4H PRN PRN Reason: nausea, able to take PO Ondansetron HCl (Zofran) 4 mg IVPUSH Q4H PRN PRN Reason: Nausea Pantoprazole Sodium (Protonix) 40 mg PO ACBREAKFAST [facility] Last Admin: 08/06/19 06:57 Dose: 40 mg Fluticasone/Salmeterol (Advair Diskus 250-50) 0 puff INH DAILY [facility] Last Admin: 08/06/19 09:12 Dose: 1 inhalation Sodium Chloride (Saline Flush) 10 ml FLUSH ASDIRECTED PRN PRN Reason: Keep Vein Open Last Admin: 08/04/19 08:59 Dose: 10 ml Sodium Chloride (Saline Flush) 2.5 ml FLUSH ASDIRECTED PRN PRN Reason: Keep Vein Open Last Admin: 08/04/19 08:59 Dose: 2.5 ml Temazepam (Restoril) 15 mg PO BEDTIME PRN PRN Reason: Sleep Discontinued Medications Albuterol/Ipratropium (Duoneb 3.0-0.5 Mg/3 Ml) 3 ml NEB ONETIME ONE Stop: 08/04/19 13:20 Last Admin: 08/04/19 13:33 Dose: 3 ml Aspirin (Aspirin) 81 mg PO DAILY [facility] Last Admin: 08/05/19 10:36 Dose: Not Given Al Hydroxide/Mg Hydroxide 15 ml/ Metoclopramide HCl 5 mg/Lidocaine HCl 5 ml 0 ml PO ONETIME ONE Stop: 08/04/19 09:59 Last Admin: 08/04/19 10:21 Dose: 5 each Fentanyl (Sublimaze) 25 mcg IVPUSH ONETIME ONE Stop: 08/04/19 09:59 Last Admin: 08/04/19 10:07 Dose: 25 mcg Fentanyl (Fentanyl) 25 mcg IVPUSH ONETIME ONE Stop: 08/04/19 10:54 Last Admin: 08/04/19 11:19 Dose: 25 mcg Sodium Chloride (Normal Saline) 1,000 mls @ 999 mls/hr IV STAT ONE Stop: 08/04/19 10:04 Last Admin: 08/04/19 09:14 Dose: 999 mls/hr Sodium Chloride (Normal Saline) 1,000 mls @ 999 mls/hr IV .Bolus ONE Stop: 08/04/19 10:30 Last Admin: 08/04/19 10:20 Dose: 999 mls/hr Ibuprofen (Motrin) 600 mg PO Q8H [facility] Last Admin: 08/05/19 02:40 Dose: 600 mg Influenza Virus Vaccine (Pharmacy To Dose - Influenza Vaccine) 1 each IM ONETIME ONE Stop: 08/04/19 14:10 Last Admin: 08/04/19 15:53 Dose: Not Given Influenza Virus Vaccine (Fluzone Quad [id number] Syringe) 60 mcg IM .ONCE ONE Stop: 08/05/19 14:16 Iopamidol (Isovue Multipack-370 (76%)) 50 ml IVPUSH ONETIME STA Stop: 08/04/19 17:46 Last Admin: 08/04/19 17:46 Dose: 50 ml Morphine Sulfate (Morphine) 2 mg IVPUSH ONETIME ONE Stop: 08/04/19 09:57 Last Admin: 08/04/19 10:02 Dose: Not Given Morphine Sulfate (Morphine) 2 mg IVPUSH Q2H PRN PRN Reason: Pain (severe 7-10) Stop: 08/05/19 11:46 Last Admin: 08/04/19 21:29 Dose: 2 mg Nitroglycerin (Nitrostat) 0.4 mg SL Q5M PRN PRN Reason: Chest Pain Last Admin: 08/04/19 09:21 Dose: 0.4 mg - Problem List & Annotations (1) Pericardial effusion SNOMED Code(s): 071239525 Code(s): I31.3 - PERICARDIAL EFFUSION (NONINFLAMMATORY) Status: Acute Current Visit: Yes (2) Chest pain SNOMED Code(s): 05481914 Code(s): R07.9 - CHEST PAIN, UNSPECIFIED Status: Acute Current Visit: Yes - Problem List Review Problem List Initiated/Reviewed/Updated: Yes - Plan Plan:: I have seen and evaluated the patient and agree with the residents note unless specified in my note
[2019-08-05] MEDS ORDERED: FLU Vacc QS2019-20(6MOS+)/PF 60 MCG/0.5 ML SYRINGE IM ONE (14:15)
[2019-08-05] MEDS: atorvaSTATin 20 MG Tab PO SCH (21:15)
[2019-08-06] MEDS: Aspirin 325 MG Tab.EC PO SCH ×3 (01:19→16:48)
[2019-08-06 06:00] LABS: BLOOD UREA NITROGEN,BUN 13 mg/dL (7.0-18.0); CARBON DIOXIDE,CO2 25.1 mmol/L (21.0-32.0); CHLORIDE,CL 105 mmol/L (98-107); GLUCOSE RANDOM 100 mg/dL (74-106); POTASSIUM,K 3.7 mmol/L (3.5-5.1); SODIUM,NA 142 mmol/L (136-148)
[2019-08-06] MEDS: Pantoprazole 40 MG Tab.CR PO SCH (06:57)
[2019-08-06] MEDS: Metoprolol Succinate 50 MG Tab.ER PO SCH (08:14)
[2019-08-06] MEDS: Lisinopril 5 MG Tab PO SCH (08:15)
[2019-08-06] MEDS: Clopidogrel 75 MG Tab PO SCH (08:15)
[2019-08-06] MEDS: SALMETEROL INH SCH (09:12)
[2019-08-06] MEDS: FLUTICASONE INH SCH (09:12)
[2019-08-06] MEDS ORDERED: Colchicine 0.6 MG Tab PO SCH (10:30)
[2019-08-06] MEDS: Enoxaparin 40 MG/0.4 ML Syringe SUBCUT SCH (11:00)
--- NOTE | 2019-08-06 11:22 | PCM.PN ---
<Camron Salazar - Last Filed: 08/06/19 11:17> - General Info Date of Service: 08/06/19 Subjective Update: no acute events overnight. afebrile, normotensive. No chest pain. feels better. No nausea or vomiting. - Patient Data Vitals - Most Recent: Last Vital Signs Temp 36.4 C 08/06/19 08:19 Pulse 88 08/06/19 08:19 Resp 16 08/06/19 08:19 BP 132/86 08/06/19 08:19 Pulse Ox 95 08/06/19 08:19 Weight - Most Recent: 103.6 kg I&O - Last 24 Hours: Intake & Output 08/05/19 08/06/19 08/06/19 22:59 06:59 14:59 Intake Total 1010 750 Output Total 680 500 Balance 330 250 Lab Results Last 24 Hours: Laboratory Results - last 24 hr 08/06/19 08/06/19 Range/Units 05:23 05:23 WBC 9.63 (4.0-11.0) K/uL RBC 4.02 L (4.50-5.90) M/uL Hgb 12.3 L (13.0-17.0) g/dL Hct 36.5 L (38.0-50.0) % MCV 90.8 (80.0-98.0) fL MCH 30.6 (27.0-32.0) pg MCHC 33.7 (31.0-37.0) g/dL RDW Std Deviation 43.5 (28.0-62.0) fl RDW Coeff of Dominga 13 (11.0-15.0) % Plt Count 220 (150-400) K/uL MPV 10.50 (7.40-12.00) fL Neut % (Auto) 68.0 (48.0-80.0) % Lymph % (Auto) 18.5 (16.0-40.0) % [place] % (Auto) 12.9 (0.0-15.0) % Eos % (Auto) 0.5 (0.0-7.0) % Baso % (Auto) 0.1 (0.0-1.5) % Neut # (Auto) 6.6 H (1.4-5.7) K/uL Lymph # (Auto) 1.8 (0.6-2.4) K/uL [place] # (Auto) 1.2 H (0.0-0.8) K/uL Eos # (Auto) 0.1 (0.0-0.7) K/uL Baso # (Auto) 0.0 (0.0-0.1) K/uL Nucleated RBC % 0.0 /100WBC Nucleated RBCs # 0 K/uL ESR 59 H (0-19) mm/hr Sodium 142 (136-148) mmol/L Potassium 3.7 (3.5-5.1) mmol/L Chloride 105 (98-107) mmol/L Carbon Dioxide 25.1 (21.0-32.0) mmol/L BUN 13 (7.0-18.0) mg/dL Creatinine 1.0 (0.8-1.3) mg/dL Est Cr Clr Drug Dosing 67.34 mL/min Estimated GFR (MDRD) > 60.0 ml/min Glucose 100 (74-106) mg/dL Calcium 8.3 L (8.5-10.1) mg/dL Total Bilirubin 1.1 H (0.2-1.0) mg/dL AST 14 L (15-37) IU/L ALT 33 (14-63) IU/L Alkaline Phosphatase 70 (46-116) U/L C-Reactive Protein 18.70 H (0.00-0.90) mg/dL Total Protein 6.3 L (6.4-8.2) g/dL Albumin 2.9 L (3.4-5.0) g/dL Globulin 3.4 (2.6-4.0) g/dL Albumin/Globulin Ratio 0.9 (0.9-1.6) [place] Results Last 24 Hours: Microbiology 08/04/19 10:20 Aerobic Blood Culture - Preliminary Blood - Venous - Lab Draw NO GROWTH AFTER 2 DAYS Anaerobic Blood Culture - Final 08/04/19 10:18 Aerobic Blood Culture - Preliminary Blood - Venous NO GROWTH AFTER 2 DAYS Anaerobic Blood Culture - Preliminary NO GROWTH AFTER 2 DAYS Med Orders - Current: Current Medications Acetaminophen (Tylenol) 650 mg PO Q4H PRN PRN Reason: Pain (Mild 1-3)/fever Albuterol (Ventolin Hfa) 0 gm INH Q6H PRN PRN Reason: Wheezing Albuterol/Ipratropium (Duoneb 3.0-0.5 Mg/3 Ml) 3 ml NEB Q4HRRT PRN PRN Reason: sob, wheezingh Last Admin: 08/05/19 19:32 Dose: 3 ml Aspirin (Ecotrin) 650 mg PO Q8H [facility] Last Admin: 08/06/19 08:14 Dose: 650 mg Atorvastatin Calcium (Lipitor) 20 mg PO BEDTIME [facility] Last Admin: 08/05/19 21:15 Dose: 20 mg Clopidogrel Bisulfate (Plavix) 75 mg PO DAILY [facility] Last Admin: 08/06/19 08:15 Dose: 75 mg Colchicine (Colcrys) 0.6 mg PO BID [facility] Last Admin: 08/06/19 11:01 Dose: 0.6 mg Enoxaparin Sodium (Lovenox) 40 mg SUBCUT Q24H [facility] Last Admin: 08/06/19 11:00 Dose: 40 mg Lisinopril (Prinivil) 5 mg PO DAILY [facility] Last Admin: 08/06/19 08:15 Dose: 5 mg Metoprolol Succinate (Toprol Xl) 50 mg PO DAILY [facility] Last Admin: 08/06/19 08:14 Dose: 50 mg Ondansetron HCl (Zofran Odt) 4 mg PO Q4H PRN PRN Reason: nausea, able to take PO Ondansetron HCl (Zofran) 4 mg IVPUSH Q4H PRN PRN Reason: Nausea Pantoprazole Sodium (Protonix) 40 mg PO ACBREAKFAST [facility] Last Admin: 08/06/19 06:57 Dose: 40 mg Fluticasone/Salmeterol (Advair Diskus 250-50) 0 puff INH DAILY [facility] Last Admin: 08/06/19 09:12 Dose: 1 inhalation Sodium Chloride (Saline Flush) 10 ml FLUSH ASDIRECTED PRN PRN Reason: Keep Vein Open Last Admin: 08/04/19 08:59 Dose: 10 ml Sodium Chloride (Saline Flush) 2.5 ml FLUSH ASDIRECTED PRN PRN Reason: Keep Vein Open Last Admin: 08/04/19 08:59 Dose: 2.5 ml Temazepam (Restoril) 15 mg PO BEDTIME PRN PRN Reason: Sleep Discontinued Medications Albuterol/Ipratropium (Duoneb 3.0-0.5 Mg/3 Ml) 3 ml NEB ONETIME ONE Stop: 08/04/19 13:20 Last Admin: 08/04/19 13:33 Dose: 3 ml Aspirin (Aspirin) 81 mg PO DAILY [facility] Last Admin: 08/05/19 10:36 Dose: Not Given Al Hydroxide/Mg Hydroxide 15 ml/ Metoclopramide HCl 5 mg/Lidocaine HCl 5 ml 0 ml PO ONETIME ONE Stop: 08/04/19 09:59 Last Admin: 08/04/19 10:21 Dose: 5 each Fentanyl (Sublimaze) 25 mcg IVPUSH ONETIME ONE Stop: 08/04/19 09:59 Last Admin: 08/04/19 10:07 Dose: 25 mcg Fentanyl (Fentanyl) 25 mcg IVPUSH ONETIME ONE Stop: 08/04/19 10:54 Last Admin: 08/04/19 11:19 Dose: 25 mcg Sodium Chloride (Normal Saline) 1,000 mls @ 999 mls/hr IV STAT ONE Stop: 08/04/19 10:04 Last Admin: 08/04/19 09:14 Dose: 999 mls/hr Sodium Chloride (Normal Saline) 1,000 mls @ 999 mls/hr IV .Bolus ONE Stop: 08/04/19 10:30 Last Admin: 08/04/19 10:20 Dose: 999 mls/hr Ibuprofen (Motrin) 600 mg PO Q8H [facility] Last Admin: 08/05/19 02:40 Dose: 600 mg Influenza Virus Vaccine (Pharmacy To Dose - Influenza Vaccine) 1 each IM ONETIME ONE Stop: 08/04/19 14:10 Last Admin: 08/04/19 15:53 Dose: Not Given Influenza Virus Vaccine (Fluzone Quad Syringe) 60 mcg IM .ONCE ONE Stop: 08/05/19 14:16 Iopamidol (Isovue Multipack-370 (76%)) 50 ml IVPUSH ONETIME STA Stop: 08/04/19 17:46 Last Admin: 08/04/19 17:46 Dose: 50 ml Morphine Sulfate (Morphine) 2 mg IVPUSH ONETIME ONE Stop: 08/04/19 09:57 Last Admin: 08/04/19 10:02 Dose: Not Given Morphine Sulfate (Morphine) 2 mg IVPUSH Q2H PRN PRN Reason: Pain (severe 7-10) Stop: 08/05/19 11:46 Last Admin: 08/04/19 21:29 Dose: 2 mg Nitroglycerin (Nitrostat) 0.4 mg SL Q5M PRN PRN Reason: Chest Pain Last Admin: 08/04/19 09:21 Dose: 0.4 mg - Exam General: Alert, Oriented, Cooperative, No Acute Distress Lungs: Clear to Auscultation, Normal Respiratory Effort. No: Crackles, Wheezing Cardiovascular: Regular Rate, Regular Rhythm, Other (heart sounds more audible compared to admission) GI/Abdominal Exam: Normal Bowel Sounds, Soft, Non-Tender Extremities: Normal Inspection, No Pedal Edema Skin: Warm, Dry - Problem List Review Problem List Initiated/Reviewed/Updated: Yes - Plan Plan:: A: 1. Acute pericarditis 2. Moderate pericardial effusion 3. Elevated inflammatory markers 4. Chest pain, ruled out ACS, negative troponins P: Continue aspirin 650 mg PO Q8H. Will add colchicine BID. Will contact Dr. Luis for further recommendations. Likely DC later today. <Vincent Coreas - Last Filed: 08/06/19 14:15> - Patient Data Vitals - Most Recent: Last Vital Signs Temp 36.8 C 08/06/19 11:59 Pulse 92 08/06/19 14:08 Resp 19 08/06/19 14:08 BP 149/79 H 08/06/19 14:08 Pulse Ox 97 08/06/19 14:08 I&O - Last 24 Hours: Intake & Output 08/05/19 08/06/19 08/06/19 22:59 06:59 14:59 Intake Total 1010 750 Output Total 680 500 Balance 330 250 Lab Results Last 24 Hours: Laboratory Results - last 24 hr 08/06/19 08/06/19 Range/Units 05:23 05:23 WBC 9.63 (4.0-11.0) K/uL RBC 4.02 L (4.50-5.90) M/uL Hgb 12.3 L (13.0-17.0) g/dL Hct 36.5 L (38.0-50.0) % MCV 90.8 (80.0-98.0) fL MCH 30.6 (27.0-32.0) pg MCHC 33.7 (31.0-37.0) g/dL RDW Std Deviation 43.5 (28.0-62.0) fl RDW Coeff of Dominga 13 (11.0-15.0) % Plt Count 220 (150-400) K/uL MPV 10.50 (7.40-12.00) fL Neut % (Auto) 68.0 (48.0-80.0) % Lymph % (Auto) 18.5 (16.0-40.0) % [place] % (Auto) 12.9 (0.0-15.0) % Eos % (Auto) 0.5 (0.0-7.0) % Baso % (Auto) 0.1 (0.0-1.5) % Neut # (Auto) 6.6 H (1.4-5.7) K/uL Lymph # (Auto) 1.8 (0.6-2.4) K/uL [place] # (Auto) 1.2 H (0.0-0.8) K/uL Eos # (Auto) 0.1 (0.0-0.7) K/uL Baso # (Auto) 0.0 (0.0-0.1) K/uL Nucleated RBC % 0.0 /100WBC Nucleated RBCs # 0 K/uL ESR 59 H (0-19) mm/hr Sodium 142 (136-148) mmol/L Potassium 3.7 (3.5-5.1) mmol/L Chloride 105 (98-107) mmol/L Carbon Dioxide 25.1 (21.0-32.0) mmol/L BUN 13 (7.0-18.0) mg/dL Creatinine 1.0 (0.8-1.3) mg/dL Est Cr Clr Drug Dosing 67.34 mL/min Estimated GFR (MDRD) > 60.0 ml/min Glucose 100 (74-106) mg/dL Calcium 8.3 L (8.5-10.1) mg/dL Total Bilirubin 1.1 H (0.2-1.0) mg/dL AST 14 L (15-37) IU/L ALT 33 (14-63) IU/L Alkaline Phosphatase 70 (46-116) U/L C-Reactive Protein 18.70 H (0.00-0.90) mg/dL Total Protein 6.3 L (6.4-8.2) g/dL Albumin 2.9 L (3.4-5.0) g/dL Globulin 3.4 (2.6-4.0) g/dL Albumin/Globulin Ratio 0.9 (0.9-1.6) [place] Results Last 24 Hours: Microbiology 08/04/19 10:20 Aerobic Blood Culture - Preliminary Blood - Venous - Lab Draw NO GROWTH AFTER 2 DAYS Anaerobic Blood Culture - Final 08/04/19 10:18 Aerobic Blood Culture - Preliminary Blood - Venous NO GROWTH AFTER 2 DAYS Anaerobic Blood Culture - Preliminary NO GROWTH AFTER 2 DAYS Med Orders - Current: Current Medications Acetaminophen (Tylenol) 650 mg PO Q4H PRN PRN Reason: Pain (Mild 1-3)/fever Albuterol (Ventolin Hfa) 0 gm INH Q6H PRN PRN Reason: Wheezing Albuterol/Ipratropium (Duoneb 3.0-0.5 Mg/3 Ml) 3 ml NEB Q4HRRT PRN PRN Reason: sob, wheezingh Last Admin: 08/05/19 19:32 Dose: 3 ml Aspirin (Ecotrin) 650 mg PO Q8H [facility] Last Admin: 08/06/19 08:14 Dose: 650 mg Atorvastatin Calcium (Lipitor) 20 mg PO BEDTIME [facility] Last Admin: 08/05/19 21:15 Dose: 20 mg Clopidogrel Bisulfate (Plavix) 75 mg PO DAILY [facility] Last Admin: 08/06/19 08:15 Dose: 75 mg Colchicine (Colcrys) 0.6 mg PO BID [facility] Last Admin: 08/06/19 11:01 Dose: 0.6 mg Enoxaparin Sodium (Lovenox) 40 mg SUBCUT Q24H [facility] Last Admin: 08/06/19 11:00 Dose: 40 mg Lisinopril (Prinivil) 5 mg PO DAILY [facility] Last Admin: 08/06/19 08:15 Dose: 5 mg Metoprolol Succinate (Toprol Xl) 50 mg PO DAILY [facility] Last Admin: 08/06/19 08:14 Dose: 50 mg Ondansetron HCl (Zofran Odt) 4 mg PO Q4H PRN PRN Reason: nausea, able to take PO Ondansetron HCl (Zofran) 4 mg IVPUSH Q4H PRN PRN Reason: Nausea Pantoprazole Sodium (Protonix) 40 mg PO ACBREAKFAST [facility] Last Admin: 08/06/19 06:57 Dose: 40 mg Fluticasone/Salmeterol (Advair Diskus 250-50) 0 puff INH DAILY [facility] Last Admin: 08/06/19 09:12 Dose: 1 inhalation Sodium Chloride (Saline Flush) 10 ml FLUSH ASDIRECTED PRN PRN Reason: Keep Vein Open Last Admin: 08/04/19 08:59 Dose: 10 ml Sodium Chloride (Saline Flush) 2.5 ml FLUSH ASDIRECTED PRN PRN Reason: Keep Vein Open Last Admin: 08/04/19 08:59 Dose: 2.5 ml Temazepam (Restoril) 15 mg PO BEDTIME PRN PRN Reason: Sleep Discontinued Medications Albuterol/Ipratropium (Duoneb 3.0-0.5 Mg/3 Ml) 3 ml NEB ONETIME ONE Stop: 08/04/19 13:20 Last Admin: 08/04/19 13:33 Dose: 3 ml Aspirin (Aspirin) 81 mg PO DAILY [facility] Last Admin: 08/05/19 10:36 Dose: Not Given Al Hydroxide/Mg Hydroxide 15 ml/ Metoclopramide HCl 5 mg/Lidocaine HCl 5 ml 0 ml PO ONETIME ONE Stop: 08/04/19 09:59 Last Admin: 08/04/19 10:21 Dose: 5 each Fentanyl (Sublimaze) 25 mcg IVPUSH ONETIME ONE Stop: 08/04/19 09:59 Last Admin: 08/04/19 10:07 Dose: 25 mcg Fentanyl (Fentanyl) 25 mcg IVPUSH ONETIME ONE Stop: 08/04/19 10:54 Last Admin: 08/04/19 11:19 Dose: 25 mcg Sodium Chloride (Normal Saline) 1,000 mls @ 999 mls/hr IV STAT ONE Stop: 08/04/19 10:04 Last Admin: 08/04/19 09:14 Dose: 999 mls/hr Sodium Chloride (Normal Saline) 1,000 mls @ 999 mls/hr IV .Bolus ONE Stop: 08/04/19 10:30 Last Admin: 08/04/19 10:20 Dose: 999 mls/hr Ibuprofen (Motrin) 600 mg PO Q8H [facility] Last Admin: 08/05/19 02:40 Dose: 600 mg Influenza Virus Vaccine (Pharmacy To Dose - Influenza Vaccine) 1 each IM ONETIME ONE Stop: 08/04/19 14:10 Last Admin: 08/04/19 15:53 Dose: Not Given Influenza Virus Vaccine (Fluzone Quad Syringe) 60 mcg IM .ONCE ONE Stop: 08/05/19 14:16 Iopamidol (Isovue Multipack-370 (76%)) 50 ml IVPUSH ONETIME STA Stop: 08/04/19 17:46 Last Admin: 08/04/19 17:46 Dose: 50 ml Morphine Sulfate (Morphine) 2 mg IVPUSH ONETIME ONE Stop: 08/04/19 09:57 Last Admin: 08/04/19 10:02 Dose: Not Given Morphine Sulfate (Morphine) 2 mg IVPUSH Q2H PRN PRN Reason: Pain (severe 7-10) Stop: 08/05/19 11:46 Last Admin: 08/04/19 21:29 Dose: 2 mg Nitroglycerin (Nitrostat) 0.4 mg SL Q5M PRN PRN Reason: Chest Pain Last Admin: 08/04/19 09:21 Dose: 0.4 mg - Problem List & Annotations (1) Pericardial effusion SNOMED Code(s): 706852633 Code(s): I31.3 - PERICARDIAL EFFUSION (NONINFLAMMATORY) Status: Acute Current Visit: Yes (2) Chest pain SNOMED Code(s): 59818323 Code(s): R07.9 - CHEST PAIN, UNSPECIFIED Status: Acute Current Visit: Yes - Plan Plan:: I have seen and evaluated the patient and agree with the residents note unless specified in my note
[2019-08-06 15:17] LABS: HEMOGLOBIN A1C 5.8 % (4.5-6.2)
--- NOTE | 2019-08-06 16:48 | PCM.DCSUM1 ---
<Camron Salazar - Last Filed: 08/08/19 21:12> Discharge Summary - Hospital Course Free Text/Narrative:: 63 y/o male with history of CAD s/p stent placement who presented to the ER complaining of chest pain. He was admitted for ACS rule out. EKG did not show any ST changes. However, hid D-dimer was mildly elevated and a CT chest was performed which was negative for any pulmonary embolism. However, it did show a moderate pericardial serous effusion. Echo was also performed which showed the moderate pericardial effusion. ESR 59 and CRP 18 were elevated. Serial troponins were negative. BNP 87. He was started on colchicine which seemed to improve his chest pain. He remained hemodynamically stable. Blood pressures were stable during this hospitalization. He was discharged home on aspirin 650 mg PO Q8H, colchicine 0.6 mg PO BID, pantoprazole and with instructions to follow-up with cardiology as outpatient. - Discharge Data Discharge Date: 08/07/19 Discharge Disposition: Home, Self-Care 01 Condition: Stable - Referral to Home Health Primary Care Physician: Agustin Begum MD - Patient Instructions Diet: Heart Healthy Diet Activity: As Tolerated Notify Provider of: Fever, Increased Pain, Swelling and Redness, Nausea and/or Vomiting - Discharge Plan Prescriptions/Med Rec: Aspirin [Ecotrin EC] 650 mg PO Q8H 30 Days #180 tab.ec Colchicine 0.6 mg PO BID #60 capsule Pantoprazole [ProTONIX] 40 mg PO ACBREAKFAST #30 tab.cr Home Medications: Home Meds Albuterol [Ventolin HFA] 2 puff INH ASDIRECTED PRN 08/04/19 [History] Clopidogrel [Plavix] 75 mg PO DAILY 08/04/19 [History] Fluticasone/Salmeterol [Advair 250-50] 1 puff IH DAILY 08/04/19 [History] Lisinopril 5 mg PO DAILY 08/04/19 [History] Metoprolol Succinate [Toprol XL 50mg] 50 mg PO DAILY 08/04/19 [History] atorvaSTATin Calcium [Atorvastatin Calcium] 20 mg PO BEDTIME 08/04/19 [History] Aspirin [Ecotrin EC] 650 mg PO Q8H 30 Days #180 tab.ec 08/06/19 [Rx] Colchicine 0.6 mg PO BID #60 capsule 08/06/19 [Rx] Pantoprazole [ProTONIX] 40 mg PO ACBREAKFAST #30 tab.cr 08/06/19 [Rx] Patient Handouts: Aspirin, ASA chewable tablets, Pericarditis, Colchicine tablets or capsules, Nonspecific Chest Pain, [id number], Pantoprazole tablets Referrals: Agustin Begum MD [Primary Care Provider] - 09/16/19 3:00 pm Spencer Mott MD [Physician] - 08/18/19 3:30 pm - Discharge Summary/Plan Comment DC Time >30 min.: No - Patient Data Vitals - Most Recent: Last Vital Signs Temp 36.8 C 08/06/19 11:59 Pulse 92 08/06/19 14:08 Resp 19 08/06/19 14:08 BP 149/79 H 08/06/19 14:08 Pulse Ox 97 08/06/19 14:08 Weight - Most Recent: 103.6 kg I&O - Last 24 hours: Intake & Output 08/06/19 08/06/19 08/06/19 06:59 14:59 22:59 Intake Total 750 900 Output Total 500 1200 Balance 250 -300 Lab Results - Last 24 hrs: Laboratory Results - last 24 hr 08/06/19 08/06/19 08/06/19 Range/Units 05:23 05:23 05:23 WBC 9.63 (4.0-11.0) K/uL RBC 4.02 L (4.50-5.90) M/uL Hgb 12.3 L (13.0-17.0) g/dL Hct 36.5 L (38.0-50.0) % MCV 90.8 (80.0-98.0) fL MCH 30.6 (27.0-32.0) pg MCHC 33.7 (31.0-37.0) g/dL RDW Std Deviation 43.5 (28.0-62.0) fl RDW Coeff of Dominga 13 (11.0-15.0) % Plt Count 220 (150-400) K/uL MPV 10.50 (7.40-12.00) fL Neut % (Auto) 68.0 (48.0-80.0) % Lymph % (Auto) 18.5 (16.0-40.0) % [place] % (Auto) 12.9 (0.0-15.0) % Eos % (Auto) 0.5 (0.0-7.0) % Baso % (Auto) 0.1 (0.0-1.5) % Neut # (Auto) 6.6 H (1.4-5.7) K/uL Lymph # (Auto) 1.8 (0.6-2.4) K/uL [place] # (Auto) 1.2 H (0.0-0.8) K/uL Eos # (Auto) 0.1 (0.0-0.7) K/uL Baso # (Auto) 0.0 (0.0-0.1) K/uL Nucleated RBC % 0.0 /100WBC Nucleated RBCs # 0 K/uL ESR 59 H (0-19) mm/hr Sodium 142 (136-148) mmol/L Potassium 3.7 (3.5-5.1) mmol/L Chloride 105 (98-107) mmol/L Carbon Dioxide 25.1 (21.0-32.0) mmol/L BUN 13 (7.0-18.0) mg/dL Creatinine 1.0 (0.8-1.3) mg/dL Est Cr Clr Drug Dosing 67.34 mL/min Estimated GFR (MDRD) > 60.0 ml/min Glucose 100 (74-106) mg/dL Hemoglobin A1c (4.5-6.2) % Calcium 8.3 L (8.5-10.1) mg/dL Total Bilirubin 1.1 H (0.2-1.0) mg/dL AST 14 L (15-37) IU/L ALT 33 (14-63) IU/L Alkaline Phosphatase 70 (46-116) U/L C-Reactive Protein 18.70 H (0.00-0.90) mg/dL Total Protein 6.3 L (6.4-8.2) g/dL Albumin 2.9 L (3.4-5.0) g/dL Globulin 3.4 (2.6-4.0) g/dL Albumin/Globulin Ratio 0.9 (0.9-1.6) Triglycerides 56 (0-200) mg/dL Cholesterol 104 (50-200) mg/dL LDL Cholesterol, Calc 54 L (60-180) mg/dL VLDL Cholesterol 11 (5-55) mg/dL HDL Cholesterol 39 L (40-60) mg/dL Cholesterol/HDL Ratio 2.7 L (3.3-6.0) TSH 3rd Generation 0.83 (0.36-3.74) uIU/mL 08/06/19 Range/Units 05:23 WBC (4.0-11.0) K/uL RBC (4.50-5.90) M/uL Hgb (13.0-17.0) g/dL Hct (38.0-50.0) % MCV (80.0-98.0) fL MCH (27.0-32.0) pg MCHC (31.0-37.0) g/dL RDW Std Deviation (28.0-62.0) fl RDW Coeff of Dominga (11.0-15.0) % Plt Count (150-400) K/uL MPV (7.40-12.00) fL Neut % (Auto) (48.0-80.0) % Lymph % (Auto) (16.0-40.0) % [place] % (Auto) (0.0-15.0) % Eos % (Auto) (0.0-7.0) % Baso % (Auto) (0.0-1.5) % Neut # (Auto) (1.4-5.7) K/uL Lymph # (Auto) (0.6-2.4) K/uL [place] # (Auto) (0.0-0.8) K/uL Eos # (Auto) (0.0-0.7) K/uL Baso # (Auto) (0.0-0.1) K/uL Nucleated RBC % /100WBC Nucleated RBCs # K/uL ESR (0-19) mm/hr Sodium (136-148) mmol/L Potassium (3.5-5.1) mmol/L Chloride (98-107) mmol/L Carbon Dioxide (21.0-32.0) mmol/L BUN (7.0-18.0) mg/dL Creatinine (0.8-1.3) mg/dL Est Cr Clr Drug Dosing mL/min Estimated GFR (MDRD) ml/min Glucose (74-106) mg/dL Hemoglobin A1c 5.8 (4.5-6.2) % Calcium (8.5-10.1) mg/dL Total Bilirubin (0.2-1.0) mg/dL AST (15-37) IU/L ALT (14-63) IU/L Alkaline Phosphatase (46-116) U/L C-Reactive Protein (0.00-0.90) mg/dL Total Protein (6.4-8.2) g/dL Albumin (3.4-5.0) g/dL Globulin (2.6-4.0) g/dL Albumin/Globulin Ratio (0.9-1.6) Triglycerides (0-200) mg/dL Cholesterol (50-200) mg/dL LDL Cholesterol, Calc (60-180) mg/dL VLDL Cholesterol (5-55) mg/dL HDL Cholesterol (40-60) mg/dL Cholesterol/HDL Ratio (3.3-6.0) TSH 3rd Generation (0.36-3.74) uIU/mL RIMMA Results - Last 24 hrs: Microbiology 08/04/19 10:20 Aerobic Blood Culture - Preliminary Blood - Venous - Lab Draw NO GROWTH AFTER 2 DAYS Anaerobic Blood Culture - Final 08/04/19 10:18 Aerobic Blood Culture - Preliminary Blood - Venous NO GROWTH AFTER 2 DAYS Anaerobic Blood Culture - Preliminary NO GROWTH AFTER 2 DAYS Med Orders - Current: Current Medications Acetaminophen (Tylenol) 650 mg PO Q4H PRN PRN Reason: Pain (Mild 1-3)/fever Albuterol (Ventolin Hfa) 0 gm INH Q6H PRN PRN Reason: Wheezing Albuterol/Ipratropium (Duoneb 3.0-0.5 Mg/3 Ml) 3 ml NEB Q4HRRT PRN PRN Reason: sob, wheezingh Last Admin: 08/05/19 19:32 Dose: 3 ml Aspirin (Ecotrin) 650 mg PO Q8H [facility] Last Admin: 08/06/19 08:14 Dose: 650 mg Atorvastatin Calcium (Lipitor) 20 mg PO BEDTIME [facility] Last Admin: 08/05/19 21:15 Dose: 20 mg Clopidogrel Bisulfate (Plavix) 75 mg PO DAILY [facility] Last Admin: 08/06/19 08:15 Dose: 75 mg Colchicine (Colcrys) 0.6 mg PO BID [facility] Last Admin: 08/06/19 11:01 Dose: 0.6 mg Enoxaparin Sodium (Lovenox) 40 mg SUBCUT Q24H [facility] Last Admin: 08/06/19 11:00 Dose: 40 mg Lisinopril (Prinivil) 5 mg PO DAILY [facility] Last Admin: 08/06/19 08:15 Dose: 5 mg Metoprolol Succinate (Toprol Xl) 50 mg PO DAILY [facility] Last Admin: 08/06/19 08:14 Dose: 50 mg Ondansetron HCl (Zofran Odt) 4 mg PO Q4H PRN PRN Reason: nausea, able to take PO Ondansetron HCl (Zofran) 4 mg IVPUSH Q4H PRN PRN Reason: Nausea Pantoprazole Sodium (Protonix) 40 mg PO ACBREAKFAST [facility] Last Admin: 08/06/19 06:57 Dose: 40 mg Fluticasone/Salmeterol (Advair Diskus 250-50) 0 puff INH DAILY [facility] Last Admin: 08/06/19 09:12 Dose: 1 inhalation Sodium Chloride (Saline Flush) 10 ml FLUSH ASDIRECTED PRN PRN Reason: Keep Vein Open Last Admin: 08/04/19 08:59 Dose: 10 ml Sodium Chloride (Saline Flush) 2.5 ml FLUSH ASDIRECTED PRN PRN Reason: Keep Vein Open Last Admin: 08/04/19 08:59 Dose: 2.5 ml Temazepam (Restoril) 15 mg PO BEDTIME PRN PRN Reason: Sleep Discontinued Medications Albuterol/Ipratropium (Duoneb 3.0-0.5 Mg/3 Ml) 3 ml NEB ONETIME ONE Stop: 08/04/19 13:20 Last Admin: 08/04/19 13:33 Dose: 3 ml Aspirin (Aspirin) 81 mg PO DAILY [facility] Last Admin: 08/05/19 10:36 Dose: Not Given Al Hydroxide/Mg Hydroxide 15 ml/ Metoclopramide HCl 5 mg/Lidocaine HCl 5 ml 0 ml PO ONETIME ONE Stop: 08/04/19 09:59 Last Admin: 08/04/19 10:21 Dose: 5 each Fentanyl (Sublimaze) 25 mcg IVPUSH ONETIME ONE Stop: 08/04/19 09:59 Last Admin: 08/04/19 10:07 Dose: 25 mcg Fentanyl (Fentanyl) 25 mcg IVPUSH ONETIME ONE Stop: 08/04/19 10:54 Last Admin: 08/04/19 11:19 Dose: 25 mcg Sodium Chloride (Normal Saline) 1,000 mls @ 999 mls/hr IV STAT ONE Stop: 08/04/19 10:04 Last Admin: 08/04/19 09:14 Dose: 999 mls/hr Sodium Chloride (Normal Saline) 1,000 mls @ 999 mls/hr IV .Bolus ONE Stop: 08/04/19 10:30 Last Admin: 08/04/19 10:20 Dose: 999 mls/hr Ibuprofen (Motrin) 600 mg PO Q8H [facility] Last Admin: 08/05/19 02:40 Dose: 600 mg Influenza Virus Vaccine (Pharmacy To Dose - Influenza Vaccine) 1 each IM ONETIME ONE Stop: 08/04/19 14:10 Last Admin: 08/04/19 15:53 Dose: Not Given Influenza Virus Vaccine (Fluzone Quad 7433-7156 Syringe) 60 mcg IM .ONCE ONE Stop: 08/05/19 14:16 Last Admin: 08/06/19 16:39 Dose: 60 mcg Iopamidol (Isovue Multipack-370 (76%)) 50 ml IVPUSH ONETIME STA Stop: 08/04/19 17:46 Last Admin: 08/04/19 17:46 Dose: 50 ml Morphine Sulfate (Morphine) 2 mg IVPUSH ONETIME ONE Stop: 08/04/19 09:57 Last Admin: 08/04/19 10:02 Dose: Not Given Morphine Sulfate (Morphine) 2 mg IVPUSH Q2H PRN PRN Reason: Pain (severe 7-10) Stop: 08/05/19 11:46 Last Admin: 08/04/19 21:29 Dose: 2 mg Nitroglycerin (Nitrostat) 0.4 mg SL Q5M PRN PRN Reason: Chest Pain Last Admin: 08/04/19 09:21 Dose: 0.4 mg <Vincent Coreas - Last Filed: 08/09/19 21:54> Discharge Summary - Hospital Course HPI Initial Comments: I have seen and evaluated the patient and agree with the residents note unless specified in my note - Referral to Home Health Primary Care Physician: Agustin Begum MD - Discharge Diagnosis/Problem(s) (1) Pericardial effusion SNOMED Code(s): 862527657 ICD Code: I31.3 - PERICARDIAL EFFUSION (NONINFLAMMATORY) Status: Acute (2) Chest pain SNOMED Code(s): 46583979 ICD Code: R07.9 - CHEST PAIN, UNSPECIFIED Status: Acute - Patient Data Vitals - Most Recent: Last Vital Signs Temp 36.8 C 08/06/19 11:59 Pulse 92 08/06/19 14:08 Resp 19 08/06/19 14:08 BP 149/79 H 08/06/19 14:08 Pulse Ox 97 08/06/19 14:08 RIMMA Results - Last 24 hrs: Microbiology 08/04/19 10:20 Aerobic Blood Culture - Final Blood - Venous - Lab Draw NO GROWTH AFTER 5 DAYS Anaerobic Blood Culture - Final 08/04/19 10:18 Aerobic Blood Culture - Final Blood - Venous NO GROWTH AFTER 5 DAYS Anaerobic Blood Culture - Final NO GROWTH AFTER 5 DAYS Med Orders - Current: Current Medications Discontinued Medications Acetaminophen (Tylenol) 650 mg PO Q4H PRN PRN Reason: Pain (Mild 1-3)/fever Albuterol (Ventolin Hfa) 0 gm INH Q6H PRN PRN Reason: Wheezing Albuterol/Ipratropium (Duoneb 3.0-0.5 Mg/3 Ml) 3 ml NEB ONETIME ONE Stop: 08/04/19 13:20 Last Admin: 08/04/19 13:33 Dose: 3 ml Albuterol/Ipratropium (Duoneb 3.0-0.5 Mg/3 Ml) 3 ml NEB Q4HRRT PRN PRN Reason: sob, wheezingh Last Admin: 08/05/19 19:32 Dose: 3 ml Aspirin (Aspirin) 81 mg PO DAILY [facility] Last Admin: 08/05/19 10:36 Dose: Not Given Aspirin (Ecotrin) 650 mg PO Q8H [facility] Last Admin: 08/06/19 16:48 Dose: 650 mg Atorvastatin Calcium (Lipitor) 20 mg PO BEDTIME [facility] Last Admin: 08/05/19 21:15 Dose: 20 mg Clopidogrel Bisulfate (Plavix) 75 mg PO DAILY [facility] Last Admin: 08/06/19 08:15 Dose: 75 mg Colchicine (Colcrys) 0.6 mg PO BID [facility] Last Admin: 08/06/19 11:01 Dose: 0.6 mg Al Hydroxide/Mg Hydroxide 15 ml/ Metoclopramide HCl 5 mg/Lidocaine HCl 5 ml 0 ml PO ONETIME ONE Stop: 08/04/19 09:59 Last Admin: 08/04/19 10:21 Dose: 5 each Enoxaparin Sodium (Lovenox) 40 mg SUBCUT Q24H [facility] Last Admin: 08/06/19 11:00 Dose: 40 mg Fentanyl (Sublimaze) 25 mcg IVPUSH ONETIME ONE Stop: 08/04/19 09:59 Last Admin: 08/04/19 10:07 Dose: 25 mcg Fentanyl (Fentanyl) 25 mcg IVPUSH ONETIME ONE Stop: 08/04/19 10:54 Last Admin: 08/04/19 11:19 Dose: 25 mcg Sodium Chloride (Normal Saline) 1,000 mls @ 999 mls/hr IV STAT ONE Stop: 08/04/19 10:04 Last Admin: 08/04/19 09:14 Dose: 999 mls/hr Sodium Chloride (Normal Saline) 1,000 mls @ 999 mls/hr IV .Bolus ONE Stop: 08/04/19 10:30 Last Admin: 08/04/19 10:20 Dose: 999 mls/hr Ibuprofen (Motrin) 600 mg PO Q8H [facility] Last Admin: 08/05/19 02:40 Dose: 600 mg Influenza Virus Vaccine (Pharmacy To Dose - Influenza Vaccine) 1 each IM ONETIME ONE Stop: 08/04/19 14:10 Last Admin: 08/04/19 15:53 Dose: Not Given Influenza Virus Vaccine (Fluzone Quad Syringe) 60 mcg IM .ONCE ONE Stop: 08/05/19 14:16 Last Admin: 08/06/19 16:39 Dose: 60 mcg Iopamidol (Isovue Multipack-370 (76%)) 50 ml IVPUSH ONETIME STA Stop: 08/04/19 17:46 Last Admin: 08/04/19 17:46 Dose: 50 ml Lisinopril (Prinivil) 5 mg PO DAILY [facility] Last Admin: 08/06/19 08:15 Dose: 5 mg Metoprolol Succinate (Toprol Xl) 50 mg PO DAILY [facility] Last Admin: 08/06/19 08:14 Dose: 50 mg Morphine Sulfate (Morphine) 2 mg IVPUSH ONETIME ONE Stop: 08/04/19 09:57 Last Admin: 08/04/19 10:02 Dose: Not Given Morphine Sulfate (Morphine) 2 mg IVPUSH Q2H PRN PRN Reason: Pain (severe 7-10) Stop: 08/05/19 11:46 Last Admin: 08/04/19 21:29 Dose: 2 mg Nitroglycerin (Nitrostat) 0.4 mg SL Q5M PRN PRN Reason: Chest Pain Last Admin: 08/04/19 09:21 Dose: 0.4 mg Ondansetron HCl (Zofran Odt) 4 mg PO Q4H PRN PRN Reason: nausea, able to take PO Ondansetron HCl (Zofran) 4 mg IVPUSH Q4H PRN PRN Reason: Nausea Pantoprazole Sodium (Protonix) 40 mg PO ACBREAKFAST [facility] Last Admin: 08/06/19 06:57 Dose: 40 mg Fluticasone/Salmeterol (Advair Diskus 250-50) 0 puff INH DAILY [facility] Last Admin: 08/06/19 09:12 Dose: 1 inhalation Sodium Chloride (Saline Flush) 10 ml FLUSH ASDIRECTED PRN PRN Reason: Keep Vein Open Last Admin: 08/04/19 08:59 Dose: 10 ml Sodium Chloride (Saline Flush) 2.5 ml FLUSH ASDIRECTED PRN PRN Reason: Keep Vein Open Last Admin: 08/04/19 08:59 Dose: 2.5 ml Temazepam (Restoril) 15 mg PO BEDTIME PRN PRN Reason: Sleep
--- NOTE | 2019-08-07 07:37 | PCM.SN ---
- Free Text/Narrative Note: [id number]
--- NOTE | 2019-08-07 09:22 | CONS ---
DATE OF CONSULTATION: DATE OF : 1955 PRIMARY CARE PHYSICIAN: PIO PEARSON MD REASON FOR CONSULTATION: Chest pain, pericardial effusion. HISTORY OF PRESENT ILLNESS: This is a 63-year-old male who has a history of CAD, status post cardiac stent in the past as well as hypertension, dyslipidemia. I do not have a prior cardiac history. He also had a history of hypertension, dyslipidemia, as well as sleep apnea. He came into the hospital because of his sudden onset of chest pain. He was up in the morning, was walking a dog and started having sharp chest pain on the retrosternal area. It was going up to his both shoulders and the intensity became worse. He started off with the 2 to 4 from 10 pain scale by getting worse to 9 to 10 with some shortness of breath. No sweating. No heart racing. No nausea, no vomiting. He feels that the pain becomes worse when he takes a deep breath or when he is lying down, but the pain seems to be better or improved when he is sitting up. No fever. No rashes. He recalled the chest pain when he had a heart attack in the past, which was different. At that time when he had a heart attack, the chest pain was more dull and pressure. At this time, it felt like sharp shooting and he came to the emergency room. When he got into the emergency room, his chest pain becomes subsided and he got into the hospital. He had a CT angiogram for PE, it was negative for the dissecting aneurysm or the PE; however, it showed pericardial effusion, and also echocardiogram showed preserved ejection fraction as well as the moderate pericardial effusion, or evidence of tamponade from my review. PAST MEDICAL HISTORY: Including hypertension; dyslipidemia; and history of CAD, status post cardiac stenting. SOCIAL HISTORY: He is a nonsmoker. Occasional alcohol use. No drug use. FAMILY HISTORY: No family history of CAD. HOME MEDICATIONS: Including Advair, atorvastatin 20 mg once a day, clopidogrel 75 mg once a day, aspirin 81 mg once a day, metoprolol succinate 50 mg once a day, and Ventolin. REVIEW OF SYSTEMS: Has been negative except as indicated in HPI. PHYSICAL EXAMINATION: VITAL SIGNS: Initial vital signs: Temperature 97.8. Weight is 228. Blood pressure is 160/92 and heart rate of 80 to 100. O2 saturation is 97% on room air. HEENT: Not pale. No jaundice. No JVD. HEART: Normal S1, S2. No murmur. Regular rate and rhythm. LUNGS: Clear. ABDOMEN: Soft, nontender. Bowel sounds are present. No hepatosplenomegaly. EXTREMITIES: Legs, no edema. INVESTIGATIONS: Initially CBC showed WBC of 12, but is coming back down to 9.6 after aspirin and colchicine were started and percent neutrophils 80 and hematocrit of 42. Chemistry: Sodium is 142, potassium 3.7, BUN 10, creatinine 1, glucose 110. A1c 5.8. Troponin was negative x3. CRP is high 3.8, going up to 18.7. LDL is 54. TSH is 0.8. Triglycerides 56. The CT scan of the chest is showing negative for aneurysm and PE, it shows 15 Hounsfield units of moderate-sized pericardial effusion. The echocardiogram shows moderate size of pericardial effusion as well, ejection fraction is preserved. EKG on August 04, 2019, shows sinus rhythm, heart rate of 67, AK interval 134, QRS duration 201. ASSESSMENT AND PLAN: This is a 63-year-old male with a history of coronary artery disease, hypertension, dyslipidemia, status post cardiac stent in 2011, presented to hospital with chest pain, seemed to be pleuritic chest pain. His chest pain is totally different from the chest pain when he had a heart attack in the past, most likely from pericardial effusion, pericarditis. CRP was elevated. The CT scan on the pericardial effusion is showing the Hounsfield unit was 15. It was on the low side, less likely to be the blood, probably transudative effusion. The etiology of the pericardial effusion is unknown. He is not in heart failure. His TSH is normal. Would empirically treat him with high-dose aspirin 650 mg t.i.d. as well as the colchicine 0.6 mg b.i.d., agree with the hospitalist team, for at least 4 weeks until the CRP comes down. Currently, he is comfortable, denies chest pain, and hemodynamically stable. No hypotension. MAVIS / VASUL /[id number]
--- NOTE | 2019-08-07 11:11 | ECHO ---
EXAM DATE: 08/04/19 PATIENT'S AGE: 63 The echocardiogram report can be seen in this patient's EMR (Electronic Medical Record) in the Reports section. The report has also been scanned into PACs. SHERRY
== END 2019-08-06 17:20 | disposition home or self-care (01) ==
LOC: MW.ED 08:45 → MW.MS 11:34
PROVIDERS: ADMIT Internal Medicine; ATTEND Internal Medicine
DX: R07.2 Precordial pain (principal); I25.10 Atherosclerotic heart disease of native coronary artery without angina pectoris; J45.909 Unspecified asthma, uncomplicated; E78.00 Pure hypercholesterolemia, unspecified; I10 Essential (primary) hypertension; E78.5 Hyperlipidemia, unspecified; Z95.5 Presence of coronary angioplasty implant and graft; Z88.0 Allergy status to penicillin; Z79.899 Other long term (current) drug therapy; Z79.02 Long term (current) use of antithrombotics/antiplatelets; Z79.82 Long term (current) use of aspirin
CPT/HCPCS: 36415; 71045; 71275; 80053; 80061; 83036; 83605; 83880; 84443; 84484; 85025; 85379; 85610; 85652; 86140; 87040; 90471; 90686; 93005; 93306; 94640; 94664; 96361; 96372; 96374; 96375; 96376; 99285; A9270; G0378; J1650; J2270; J3010; J7040; Q9967; G0008; J7620-GY

== ENCOUNTER 2019-08-14 19:37 | Observation (INO) | payer OTHER ==
[2019-08-14] MEDS ORDERED: Diltiazem 25 MG/5 ML SDV IVPUSH ONE ×2 (19:48→21:09)
--- NOTE | 2019-08-14 20:09 | EDM.PDOC ---
ED HPI GENERAL MEDICAL PROBLEM - General Chief Complaint: General Stated Complaint: BACK/SHOULDER PAIN Time Seen by Provider: 08/14/19 19:41 Source of Information: Reports: Patient History Limitations: Reports: No Limitations - History of Present Illness INITIAL COMMENTS - FREE TEXT/NARRATIVE: HISTORY AND PHYSICAL: History of present illness: Patient is a 63-year-old male who presents to the ED today with concern of left scapula/left shoulder pain over the last couple days. Patient states they tried going to the chiropractor today but this did not help his symptoms. Patient states he was admitted to the hospital recently as he had chest pain and had a pericardial effusion was told to follow up with cardiology. Patient states he has an appointment with Dr. Luis but has not seen him yet. Patient denies any current chest pain but does state he does get short of breath when he walks long distances. Patient denies any other symptoms or concerns. Patient denies fever, chills, chest pain, shortness of breath, or cough. Denies headache, neck stiff ness, change in vision, syncope, or near syncope. Denies nausea, vomiting, abdominal pain, diarrhea, constipation, or dysuria. Has not noted any blood in urine or stool. Patient has been eating and drinking appropriately. Review of systems: As per history of present illness and below otherwise all systems reviewed and negative. Past medical history: As per history of present illness and as reviewed below otherwise noncontributory. Surgical history: As per history of present illness and as reviewed below otherwise noncontributory. Social history: See social history for further information Family history: As per history of present illness and as reviewed below otherwise noncontributory. Physical exam: General: Patient is alert, oriented, and in no acute distress. Patient sitting comfortably on exam table. HEENT: Atraumatic, normocephalic, pupils equal and reactive bilaterally, negative for conjunctival pallor or scleral icterus, mucous membranes moist, TMs normal bilaterally, throat clear, neck supple, nontender, trachea midline. No drooling or trismus noted. No meningeal signs. No hot potato voice noted. Lungs: Clear to auscultation, breath sounds equal bilaterally, chest nontender. Heart: Tachycardic. S1S2, irregularly irregular rate and rhythm without overt murmur Abdomen: Soft, nondistended, nontender. Negative for masses or hepatosplenomegaly. Negative for costovertebral tenderness. Pelvis: Stable nontender. Genitourinary: Deferred. Rectal: Deferred. Skin: Intact, warm, dry. No lesions or rashes noted. Extremities: Atraumatic, negative for cords or calf pain. Neurovascular unremarkable. Patient has full range of motion of complete bilateral upper extremities without pain or difficulty. No obvious deformity of the scapula the patient does point over the left scapular area when referring to his pain. Neuro: Awake, alert, oriented. Cranial nerves II through XII unremarkable. Cerebellum unremarkable. Motor and sensory unremarkable throughout. Exam nonfocal. Notes: Dr. Celeste consulted on patient and has come in to personally seen patient. Will admit to observation. Voices understanding and is agreeable to plan of care. Denies any further questions or concerns at this time. Diagnostics: CBC, CMP, UA, EKG, chest x-ray, troponin, left shoulder x-ray Therapeutics: Nata Darby Impression: Atrial fibrillation with RVR Plan: Admit to observation to Dr. Celeste Definitive disposition and diagnosis as appropriate pending reevaluation and review of above. upper back;left shoulder Pain Score (Numeric/FACES): 9 - Related Data Allergies Allergy/AdvReac Type Severity Reaction Status Date / Time Penicillins Allergy Airway Verified 08/14/19 19:51 Tightness Home Meds: Home Meds Albuterol [Ventolin HFA] 2 puff INH ASDIRECTED PRN 08/04/19 [History] Clopidogrel [Plavix] 75 mg PO DAILY 08/04/19 [History] Fluticasone/Salmeterol [Advair 250-50] 1 puff IH DAILY 08/04/19 [History] Lisinopril 5 mg PO DAILY 08/04/19 [History] Metoprolol Succinate [Toprol XL 50mg] 50 mg PO DAILY 08/04/19 [History] atorvaSTATin Calcium [Atorvastatin Calcium] 20 mg PO BEDTIME 08/04/19 [History] Past Medical History HEENT History: Reports: Impaired Vision Other HEENT History: blindness in right eye Cardiovascular History: Reports: High Cholesterol, Hypertension, OR, Stents Respiratory History: Reports: Asthma Musculoskeletal History: Reports: None Neurological History: Reports: CVA Psychiatric History: Reports: Depression Endocrine/Metabolic History: Reports: Obesity/BMI 30+ - Infectious Disease History Infectious Disease History: Reports: Shingles - Past Surgical History HEENT Surgical History: Reports: None Cardiovascular Surgical History: Reports: Coronary Artery Stent Respiratory Surgical History: Reports: None GI Surgical History: Reports: Appendectomy Endocrine Surgical History: Reports: None Neurological Surgical History: Reports: None Musculoskeletal Surgical History: Reports: Knee Replacement Other Musculoskeletal Surgeries/Procedures:: Left knee Social & Family History - Family History Family Medical History: Noncontributory - Tobacco Use Smoking Status *Q: Never Smoker - Caffeine Use Caffeine Use: Reports: Tea - Recreational Drug Use Recreational Drug Use: No ED ROS GENERAL - Review of Systems Review Of Systems: Comprehensive ROS is negative, except as noted in HPI. ED EXAM, GENERAL - Physical Exam Exam: See Below (see dictation) Course - Vital Signs Last Recorded V/S: Last Vital Signs Temp 96.7 F 08/14/19 19:37 Pulse 88 08/14/19 21:30 Resp 21 H 08/14/19 21:30 BP 122/65 08/14/19 21:30 Pulse Ox 99 08/14/19 21:30 - Orders/Labs/Meds Orders: Active Orders 24 hr Category Date Time Status Admission Status [Patient Status] [ADT] Stat ADT 08/14/19 22:08 Ordered EKG Documentation Completion [RC] STAT Care 08/14/19 19:48 Active EKG Documentation Completion [RC] STAT Care 08/14/19 20:44 Active UA RFX RIMMA AND CULT IF INDIC [URIN] Stat Lab 08/14/19 19:48 Ordered Sodium Chloride 0.9% [Normal Saline] 1,000 ml Med 08/14/19 20:33 Active IV .Bolus Medication Orders Sodium Chloride (Normal Saline) 1,000 mls @ 125 mls/hr IV .Bolus ONE Stop: 08/15/19 04:32 Last Admin: 08/14/19 20:36 Dose: 125 mls/hr Labs: Laboratory Tests 08/14/19 08/14/19 08/14/19 Range/Units 20:25 20:25 20:25 WBC 12.07 H (4.0-11.0) K/uL RBC 3.89 L (4.50-5.90) M/uL Hgb 11.9 L (13.0-17.0) g/dL Hct 35.9 L (38.0-50.0) % MCV 92.3 (80.0-98.0) fL MCH 30.6 (27.0-32.0) pg MCHC 33.1 (31.0-37.0) g/dL RDW Std Deviation 43.8 (28.0-62.0) fl RDW Coeff of Dominga 13 (11.0-15.0) % Plt Count 375 (150-400) K/uL MPV 11.90 (7.40-12.00) fL Neut % (Auto) 73.0 (48.0-80.0) % Lymph % (Auto) 15.7 L (16.0-40.0) % [place] % (Auto) 10.9 (0.0-15.0) % Eos % (Auto) 0.3 (0.0-7.0) % Baso % (Auto) 0.1 (0.0-1.5) % Neut # (Auto) 8.8 H (1.4-5.7) K/uL Lymph # (Auto) 1.9 (0.6-2.4) K/uL [place] # (Auto) 1.3 H (0.0-0.8) K/uL Eos # (Auto) 0.0 (0.0-0.7) K/uL Baso # (Auto) 0.0 (0.0-0.1) K/uL Nucleated RBC % 0.0 /100WBC Nucleated RBCs # 0 K/uL INR 1.13 Sodium 136 (136-148) mmol/L Potassium 3.5 (3.5-5.1) mmol/L Chloride 100 (98-107) mmol/L Carbon Dioxide 27.8 (21.0-32.0) mmol/L BUN 13 (7.0-18.0) mg/dL Creatinine 1.0 (0.8-1.3) mg/dL Est Cr Clr Drug Dosing 67.34 mL/min Estimated GFR (MDRD) > 60.0 ml/min Glucose 109 H (74-106) mg/dL Calcium 8.3 L (8.5-10.1) mg/dL Total Bilirubin 0.7 (0.2-1.0) mg/dL AST 42 H (15-37) IU/L ALT 94 H (14-63) IU/L Alkaline Phosphatase 159 H (46-116) U/L Troponin I < 0.050 (0.000-0.056) ng/mL Total Protein 7.3 (6.4-8.2) g/dL Albumin 3.1 L (3.4-5.0) g/dL Globulin 4.2 H (2.6-4.0) g/dL Albumin/Globulin Ratio 0.7 L (0.9-1.6) Meds: Medications Generic Name Dose Route Start Last Admin Trade Name Freq PRN Reason Stop Dose Admin Sodium Chloride 1,000 mls @ 125 mls/hr 08/14/19 20:33 08/14/19 20:36 Normal Saline IV 08/15/19 04:32 125 mls/hr .Bolus ONE Administration Discontinued Medications Generic Name Dose Route Start Last Admin Trade Name Freq PRN Reason Stop Dose Admin Diltiazem HCl 20 mg 08/14/19 19:48 08/14/19 20:28 Diltiazem IVPUSH 08/14/19 19:49 20 mg ONETIME ONE Administration Diltiazem HCl Confirm 08/14/19 20:18 08/14/19 20:27 Diltiazem Administered 08/14/19 20:19 Not Given Dose 25 mg .ROUTE .STK-MED ONE Diltiazem HCl 20 mg 08/14/19 21:09 08/14/19 21:14 Diltiazem IVPUSH 08/14/19 21:10 20 mg ONETIME ONE Administration Enoxaparin Sodium 100 mg 08/14/19 20:58 08/14/19 21:10 Lovenox SUBCUT 08/14/19 20:59 100 mg ONETIME ONE Administration Departure - Departure Time of Disposition: 22:09 Disposition: Refer to Observation Clinical Impression: Atrial fibrillation with rapid ventricular response - Discharge Information Referrals: Isaac Ruiz [Primary Care Provider] - Forms: ED Department Discharge - My Orders Last 24 Hours: My Active Orders 08/14/19 19:48 EKG Documentation Completion [RC] STAT UA RFX RIMMA AND CULT IF INDIC [URIN] Stat 08/14/19 20:33 Sodium Chloride 0.9% [Normal Saline] 1,000 ml IV .Bolus 08/14/19 20:44 EKG Documentation Completion [RC] STAT 08/14/19 22:08 Admission Status [Patient Status] [ADT] Stat - Assessment/Plan Last 24 Hours: My Active Orders 08/14/19 19:48 EKG Documentation Completion [RC] STAT UA RFX RIMMA AND CULT IF INDIC [URIN] Stat 08/14/19 20:33 Sodium Chloride 0.9% [Normal Saline] 1,000 ml IV .Bolus 08/14/19 20:44 EKG Documentation Completion [RC] STAT 08/14/19 22:08 Admission Status [Patient Status] [ADT] Stat
[2019-08-14] MEDS ORDERED: Diltiazem 25 MG/5 ML SDV ONE (20:18)
[2019-08-14] MEDS ORDERED: Sodium Chloride 0.9% 1,000 ML IV ONE (20:33)
[2019-08-14 20:55] LABS: BLOOD UREA NITROGEN,BUN 13 mg/dL (7.0-18.0); CARBON DIOXIDE,CO2 27.8 mmol/L (21.0-32.0); CHLORIDE,CL 100 mmol/L (98-107); GLUCOSE RANDOM 109 mg/dL (74-106); POTASSIUM,K 3.5 mmol/L (3.5-5.1); SODIUM,NA 136 mmol/L (136-148)
--- NOTE | 2019-08-14 20:56 | CR ---
Indication: Chest pain Technique: Chest 1 view Comparison: August 04, 2019 Findings/Impression: The enlarged cardiomediastinal silhouette appears slightly increased compared to the prior study. A pericardial effusion cannot be excluded. Normal pulmonary vasculature. No focal infiltrate, effusion, or pneumothorax. No acute osseous abnormality. Dictated by Elissa Briones MD @ Aug 14 2019 8:53PM Signed by Dr. Elissa Briones @ Aug 14 2019 8:55PM
[2019-08-14] MEDS ORDERED: Enoxaparin 100 MG/1 ML Syringe SUBCUT ONE (20:58)
--- NOTE | 2019-08-14 21:07 | CR ---
INDICATION: Left shoulder pain. TECHNIQUE: AP internal rotation, AP external rotation and scapular Y-views Findings: No fractures, dislocations, arthritic changes or periarticular calcifications seen. The visualized left lung demonstrates no consolidations. A moderate during lead overlies the chest wall. Impression: No acute osseous finding. Dictated by Manolo Long MD @ Aug 14 2019 9:02PM Signed by Dr. Manolo Long @ Aug 14 2019 9:05PM
[2019-08-14] MEDS ORDERED: Albuterol 8 GM Inhaler INH PRN (22:38)
[2019-08-14] MEDS: Morphine 2 MG/ML Syringe IVPUSH PRN (23:38)
[2019-08-15] MEDS: Morphine 2 MG/ML Syringe IVPUSH PRN ×2 (04:32→10:53)
[2019-08-15] MEDS ORDERED: Aspirin 325 MG Tab PO SCH (06:00)
[2019-08-15 06:43] LABS: BLOOD UREA NITROGEN,BUN 13 mg/dL (7.0-18.0); CARBON DIOXIDE,CO2 28.5 mmol/L (21.0-32.0); CHLORIDE,CL 102 mmol/L (98-107); GLUCOSE RANDOM 106 mg/dL (74-106); POTASSIUM,K 3.7 mmol/L (3.5-5.1); SODIUM,NA 137 mmol/L (136-148)
--- NOTE | 2019-08-15 07:37 | PCM.HP.2 ---
H&P History of Present Illness - General Date of Service: 08/15/19 Admit Problem/Dx: Admission Diagnosis/Problem Admission Diagnosis/Problem Atrial fibrillation Source of Information: Patient History Limitations: Reports: No Limitations - History of Present Illness Initial Comments - Free Text/Narative: 63-year-old male admitted for atrial fibrillation with RVR. He has a PMH of HTN , CT s/p stent and CVA. Patient presented to ER with complaints of ongoing left shoulder pain and shortness of breath since his recent hospitalization approximately 1 week ago. At that time, he was found to have a pericardial effusion. He decided to return to the ER as his left shoulder pain and SOB was not improving. Patient reports that the pain is worse when he lies down and relieved by sitting up. The pain has been preventing him from getting any sleep. In the ER he was to be in atrial fibrillation with RVR. He was given IV diltiazem and lovenox. Troponin level was negative. Left shoulder x-ray was negative. CXR showed enlarged cardiomediastinal silhouette slightly increased since previous CXR. He was admitted for further evaluation. upper back;left shoulder Pain Score (Numeric/FACES): 7 - Related Data Allergies/Adverse Reactions: Allergies Allergy/AdvReac Type Severity Reaction Status Date / Time Penicillins Allergy Airway Verified 08/14/19 23:02 Tightness Home Medications: Home Meds Albuterol [Ventolin HFA] 2 puff INH ASDIRECTED PRN 08/04/19 [History] Clopidogrel [Plavix] 75 mg PO DAILY 08/04/19 [History] Fluticasone/Salmeterol [Advair 250-50] 1 puff IH DAILY 08/04/19 [History] Lisinopril 5 mg PO DAILY 08/04/19 [History] Metoprolol Succinate [Toprol XL 50mg] 50 mg PO DAILY 08/04/19 [History] atorvaSTATin Calcium [Atorvastatin Calcium] 20 mg PO BEDTIME 08/04/19 [History] Aspirin 650 mg PO TID tablet 08/15/19 [Rx] oxyCODONE HCl/Acetaminophen [Oxycodone-Acetaminophen 5-325] 1 each PO Q6HR PRN 4 Days #12 tablet 08/15/19 [Rx] Past Medical History HEENT History: Reports: Impaired Vision Other HEENT History: blindness in right eye Cardiovascular History: Reports: High Cholesterol, Hypertension, CT, Stents Other Cardiovascular History: CT 2014, 2 stents placed per pt Respiratory History: Reports: Asthma Gastrointestinal History: Reports: None Musculoskeletal History: Reports: None Neurological History: Reports: CVA Other Neuro History: 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, optic nerve stroke Psychiatric History: Reports: Anxiety, Depression Endocrine/Metabolic History: Reports: Obesity/BMI 30+ - Infectious Disease History Infectious Disease History: Reports: Chicken Pox - Past Surgical History HEENT Surgical History: Reports: Cataract Surgery Cardiovascular Surgical History: Reports: Coronary Artery Stent Respiratory Surgical History: Reports: None GI Surgical History: Reports: Appendectomy Endocrine Surgical History: Reports: None Neurological Surgical History: Reports: None Musculoskeletal Surgical History: Reports: Knee Replacement Other Musculoskeletal Surgeries/Procedures:: Left knee Social & Family History - Family History Family Medical History: Noncontributory - Tobacco Use Smoking Status *Q: Never Smoker Second Hand Smoke Exposure: No - Caffeine Use Caffeine Use: Reports: Coffee, Tea - Recreational Drug Use Recreational Drug Use: No H&P Review of Systems - Review of Systems: Review Of Systems: Comprehensive ROS is negative, except as noted in HPI. Exam - Exam Exam: See Below - Vital Signs Vital Signs: Last Vital Signs Temp 98.5 F 08/15/19 04:00 Pulse 85 08/15/19 04:00 Resp 18 08/15/19 04:00 BP 131/66 08/15/19 04:00 Pulse Ox 98 08/15/19 04:00 Weight: 225 lb 8.526 oz - Exam General: Alert, Oriented, Cooperative HEENT: Conjunctiva Clear, EOMI, Mucosa Moist & [place], Posterior Pharynx Clear Neck: Supple, Trachea Midline Lungs: Clear to Auscultation, Normal Respiratory Effort Cardiovascular: Regular Rate, Regular Rhythm GI/Abdominal Exam: Normal Bowel Sounds, Soft, Non-Tender, No Distention Extremities: Normal Inspection, No Pedal Edema Peripheral Pulses: 2+: Posterior Tibial (L), Posterior Tibial (R) Skin: Warm, Dry, Intact Neurological: Cranial Nerves Intact, Strength Equal Bilateral, Normal Speech, Normal Tone Psychiatric: Alert, Normal Affect, Normal Mood - Patient Data Lab Results Last 24 hrs: Laboratory Results - last 24 hr 08/14/19 08/14/19 08/14/19 Range/Units 20:25 20:25 20:25 WBC 12.07 H (4.0-11.0) K/uL RBC 3.89 L (4.50-5.90) M/uL Hgb 11.9 L (13.0-17.0) g/dL Hct 35.9 L (38.0-50.0) % MCV 92.3 (80.0-98.0) fL MCH 30.6 (27.0-32.0) pg MCHC 33.1 (31.0-37.0) g/dL RDW Std Deviation 43.8 (28.0-62.0) fl RDW Coeff of Dominga 13 (11.0-15.0) % Plt Count 375 (150-400) K/uL MPV 11.90 (7.40-12.00) fL Neut % (Auto) 73.0 (48.0-80.0) % Lymph % (Auto) 15.7 L (16.0-40.0) % [place] % (Auto) 10.9 (0.0-15.0) % Eos % (Auto) 0.3 (0.0-7.0) % Baso % (Auto) 0.1 (0.0-1.5) % Neut # (Auto) 8.8 H (1.4-5.7) K/uL Lymph # (Auto) 1.9 (0.6-2.4) K/uL [place] # (Auto) 1.3 H (0.0-0.8) K/uL Eos # (Auto) 0.0 (0.0-0.7) K/uL Baso # (Auto) 0.0 (0.0-0.1) K/uL Nucleated RBC % 0.0 /100WBC Nucleated RBCs # 0 K/uL INR 1.13 Sodium 136 (136-148) mmol/L Potassium 3.5 (3.5-5.1) mmol/L Chloride 100 (98-107) mmol/L Carbon Dioxide 27.8 (21.0-32.0) mmol/L BUN 13 (7.0-18.0) mg/dL Creatinine 1.0 (0.8-1.3) mg/dL Est Cr Clr Drug Dosing 67.34 mL/min Estimated GFR (MDRD) > 60.0 ml/min Glucose 109 H (74-106) mg/dL Calcium 8.3 L (8.5-10.1) mg/dL Total Bilirubin 0.7 (0.2-1.0) mg/dL AST 42 H (15-37) IU/L ALT 94 H (14-63) IU/L Alkaline Phosphatase 159 H (46-116) U/L Troponin I < 0.050 (0.000-0.056) ng/mL Total Protein 7.3 (6.4-8.2) g/dL Albumin 3.1 L (3.4-5.0) g/dL Globulin 4.2 H (2.6-4.0) g/dL Albumin/Globulin Ratio 0.7 L (0.9-1.6) Urine Color Urine Appearance Urine pH (5.0-8.0) Ur Specific [place] (1.001-1.035) Urine Protein (NEGATIVE) mg/dL Urine Glucose (UA) (NEGATIVE) mg/dL Urine Ketones (NEGATIVE) mg/dL Urine Occult Blood (NEGATIVE) Urine Nitrite (NEGATIVE) Urine Bilirubin (NEGATIVE) Urine Ictotest Urine Urobilinogen (<2.0) EU/dL Ur Leukocyte Esterase (NEGATIVE) Urine RBC (0-2/HPF) Urine WBC (0-5/HPF) Ur Epithelial Cells (NONE-FEW) Urine Bacteria (NEGATIVE) 08/15/19 08/15/19 08/15/19 Range/Units 00:14 06:04 06:04 WBC 8.01 (4.0-11.0) K/uL RBC 3.25 L (4.50-5.90) M/uL Hgb 9.8 L (13.0-17.0) g/dL Hct 29.8 L (38.0-50.0) % MCV 91.7 (80.0-98.0) fL MCH 30.2 (27.0-32.0) pg MCHC 32.9 (31.0-37.0) g/dL RDW Std Deviation 44.3 (28.0-62.0) fl RDW Coeff of [place] 13 (11.0-15.0) % Plt Count 309 (150-400) K/uL MPV 11.20 (7.40-12.00) fL Neut % (Auto) 66.2 (48.0-80.0) % Lymph % (Auto) 18.5 (16.0-40.0) % [place] % (Auto) 14.4 (0.0-15.0) % Eos % (Auto) 0.7 (0.0-7.0) % Baso % (Auto) 0.2 (0.0-1.5) % Neut # (Auto) 5.3 (1.4-5.7) K/uL Lymph # (Auto) 1.5 (0.6-2.4) K/uL [place] # (Auto) 1.2 H (0.0-0.8) K/uL Eos # (Auto) 0.1 (0.0-0.7) K/uL Baso # (Auto) 0.0 (0.0-0.1) K/uL Nucleated RBC % 0.0 /100WBC Nucleated RBCs # 0 K/uL INR Sodium 137 (136-148) mmol/L Potassium 3.7 (3.5-5.1) mmol/L Chloride 102 (98-107) mmol/L Carbon Dioxide 28.5 (21.0-32.0) mmol/L BUN 13 (7.0-18.0) mg/dL Creatinine 0.9 (0.8-1.3) mg/dL Est Cr Clr Drug Dosing 74.83 mL/min Estimated GFR (MDRD) > 60.0 ml/min Glucose 106 (74-106) mg/dL Calcium 8.2 L (8.5-10.1) mg/dL Total Bilirubin (0.2-1.0) mg/dL AST (15-37) IU/L ALT (14-63) IU/L Alkaline Phosphatase (46-116) U/L Troponin I < 0.050 (0.000-0.056) ng/mL Total Protein (6.4-8.2) g/dL Albumin (3.4-5.0) g/dL Globulin (2.6-4.0) g/dL Albumin/Globulin Ratio (0.9-1.6) Urine Color YELLOW Urine Appearance CLEAR Urine pH 6.0 (5.0-8.0) Ur Specific [place] 1.015 (1.001-1.035) Urine Protein 30 H (NEGATIVE) mg/dL Urine Glucose (UA) NEGATIVE (NEGATIVE) mg/dL Urine Ketones 15 H (NEGATIVE) mg/dL Urine Occult Blood TRACE-LYSED H (NEGATIVE) Urine Nitrite NEGATIVE (NEGATIVE) Urine Bilirubin SMALL H (NEGATIVE) Urine Ictotest NEGATIVE Urine Urobilinogen 2.0 H (<2.0) EU/dL Ur Leukocyte Esterase NEGATIVE (NEGATIVE) Urine RBC 0-1 (0-2/HPF) Urine WBC 0-1 (0-5/HPF) Ur Epithelial Cells RARE (NONE-FEW) Urine Bacteria RARE (NEGATIVE) Result Diagrams: 08/15/19 06:04 08/15/19 06:04 Problem List Initiated/Reviewed/Updated: Yes Orders Last 24hrs: Active Orders 24 hr Category Date Time Status Admission Status [Patient Status] [ADT] Stat ADT 08/14/19 22:08 Active Antiembolic Devices [RC] PER UNIT ROUTINE Care 08/14/19 22:41 Active EKG Documentation Completion [RC] STAT Care 08/14/19 19:48 Active EKG Documentation Completion [RC] STAT Care 08/14/19 20:44 Active Oxygen Therapy [RC] PRN Care 08/14/19 22:41 Active Telemetry Monitoring [Cardiac Monitoring] [RC] Q8H Care 08/14/19 22:38 Active Up ad [place]an [RC] ASDIRECTED Care 08/14/19 22:40 Active VTE/DVT Education [RC] PER UNIT ROUTINE Care 08/14/19 22:41 Active Vital Signs [RC] Q4H Care 08/14/19 22:41 Active Albuterol [Ventolin HFA] Med 08/14/19 22:38 Active 0 gm INH ASDIRECTED PRN Aspirin Med 08/15/19 06:00 Active 650 mg PO TID Clopidogrel [Plavix] Med 08/15/19 09:00 Active 75 mg PO DAILY Colchicine [Colcrys] Med 08/15/19 09:00 Active 0.6 mg PO BID Fluticasone/Salmeterol [Advair Diskus 250-50] Med 08/15/19 09:00 Active 1 puff INH DAILY Lisinopril [Prinivil] Med 08/15/19 09:00 Active 5 mg PO DAILY Metoprolol Succinate [Toprol XL] Med 08/15/19 09:00 Active 50 mg PO DAILY Morphine Med 08/14/19 22:40 Active 2 mg IVPUSH Q4H PRN atorvaSTATin [Lipitor] Med 08/15/19 21:00 Active 20 mg PO BEDTIME Sequential Compression Device [OM.PC] Per Unit Routine Oth 08/14/19 22:41 Ordered Resuscitation Status Routine Resus Stat 08/14/19 22:40 Ordered Medication Orders Albuterol (Ventolin Hfa) 0 gm INH ASDIRECTED PRN PRN Reason: Wheezing Aspirin (Aspirin) 650 mg PO TID [facility] Last Admin: 08/15/19 06:23 Dose: 650 mg Atorvastatin Calcium (Lipitor) 20 mg PO BEDTIME [facility] Clopidogrel Bisulfate (Plavix) 75 mg PO DAILY [facility] Colchicine (Colcrys) 0.6 mg PO BID [facility] Lisinopril (Prinivil) 5 mg PO DAILY [facility] Metoprolol Succinate (Toprol Xl) 50 mg PO DAILY [facility] Morphine Sulfate (Morphine) 2 mg IVPUSH Q4H PRN PRN Reason: Pain (severe 7-10) Stop: 08/15/19 22:41 Last Admin: 08/15/19 04:32 Dose: 2 mg Admin: 08/14/19 23:38 Dose: 2 mg Fluticasone/Salmeterol (Advair Diskus 250-50) 1 puff INH DAILY [facility] Assessment/Plan Comment:: Assessment: 1. Atrial fibrillation with RVR. 2. Left shoulder pain with history of pericardial effusion. 3. PMH of HTN, CT s/p stents and CVA. Plan: 1. For a-fib with RVR, patient was placed on telemetry and monitored overnight. Normal sinus rhythm since receiving diltiazem IV in the ER. Patient not started on anti-coagulation as he has a moderate risk of bleeding per HASBLED score. Risks and benefits were discussed with patient. Patient on metoprolol 50 mg daily. 2. For left shoulder pain with history of pericardial effusion, patient reports having a follow-up appointment scheduled with phys assistant Dr. Begum next month. He is on aspirin 650 mg and colchicine. Patient remained hemodynamically stable throughout his hospital stay and was in normal sinus rhythm overnight with no reported events on telemetry. He was discharged today in stable condition with close follow-up with his PCP on and phys assistant Dr. Begum next month. Patient was instructed to continue taking aspirin and colchicine for his pericardial effusion. He was also provided a short script of oxycodone prn for pain.
[2019-08-15] MEDS ORDERED: Clopidogrel 75 MG Tab PO SCH (09:00)
[2019-08-15] MEDS ORDERED: Lisinopril 5 MG Tab PO SCH (09:00)
[2019-08-15] MEDS ORDERED: Colchicine 0.6 MG Tab PO SCH (09:00)
[2019-08-15] MEDS ORDERED: Metoprolol Succinate 50 MG Tab.ER PO SCH (09:00)
[2019-08-15] MEDS ORDERED: Fluticasone/Salmeterol 250-50 MCG Inhalation Powder 14/Diskus INH SCH (09:00)
[2019-08-15] MEDS ORDERED: atorvaSTATin 20 MG Tab PO SCH (21:00)
== END 2019-08-15 12:03 | disposition home or self-care (01) ==
LOC: MW.ED 19:37 → MW.MS 22:08
PROVIDERS: ADMIT Internal Medicine; ATTEND Internal Medicine
DX: I48.91 Unspecified atrial fibrillation (principal); M25.512 Pain in left shoulder; I10 Essential (primary) hypertension; I25.2 Old myocardial infarction; E78.00 Pure hypercholesterolemia, unspecified; J45.909 Unspecified asthma, uncomplicated; Z88.0 Allergy status to penicillin; Z95.5 Presence of coronary angioplasty implant and graft; Z79.02 Long term (current) use of antithrombotics/antiplatelets; Z79.51 Long term (current) use of inhaled steroids; Z79.82 Long term (current) use of aspirin; Z79.899 Other long term (current) drug therapy
CPT/HCPCS: 36415; 71045; 73030; 80048; 80053; 81001; 84484; 85025; 85610; 93005; 96361; 96372; 96374; 96376; 99284; A9270; J1650; J2270; J3490; J7040; 96375; G0378

== ENCOUNTER 2019-08-16 08:40 | Emergency (ER) | payer OTHER ==
[2019-08-16] MEDS ORDERED: Diltiazem 25 MG/5 ML SDV IVPUSH ONE ×2 (08:46→09:18)
[2019-08-16] MEDS ORDERED: Sodium Chloride 0.9% 1,000 ML IV ONE (08:46)
[2019-08-16 09:32] LABS: BLOOD UREA NITROGEN,BUN 12 mg/dL (7.0-18.0); CARBON DIOXIDE,CO2 31.2 mmol/L (21.0-32.0); CHLORIDE,CL 100 mmol/L (98-107); GLUCOSE RANDOM 118 mg/dL (74-106); POTASSIUM,K 3.5 mmol/L (3.5-5.1); SODIUM,NA 139 mmol/L (136-148)
--- NOTE | 2019-08-16 09:35 | CR ---
INDICATION: Chest, shoulder and back pain. TECHNIQUE: Upright portable AP image of the chest. COMPARISON: 08/14/2019. FINDINGS: No obvious change. Marked enlargement of the cardiac silhouette with water bottle? configuration raising question of pericardial effusion. Lungs low in volume. No obvious acute infiltrate. No pleural effusion. Pulmonary veins normal in caliber. No significant bony abnormality. IMPRESSION: No obvious change. Marked enlargement of the cardiac silhouette with configuration raising question of pericardial effusion. Dictated by Danny Porter MD @ Aug 16 2019 9:31AM Signed by Dr. Danny Porter @ Aug 16 2019 9:33AM
[2019-08-16] MEDS ORDERED: Albuterol/Ipratropium 3.0-0.5 MG/3 ML Neb Soln NEB ONE (09:38)
[2019-08-16] MEDS ORDERED: Sodium Chloride 0.9% 100 ML ONE ×2 (10:09→11:55)
[2019-08-16] MEDS ORDERED: Diltiazem 125 MG in Sodium Chloride 0.9% 100 ML IV SCH ×4 (10:15)
[2019-08-16] MEDS ORDERED: Diltiazem 100 MG in Sodium Chloride 0.9% 100 ML IV SCH (10:15)
[2019-08-16] MEDS ORDERED: Morphine 2 MG/ML Syringe IVPUSH ONE (10:39)
--- NOTE | 2019-08-16 10:43 | EDM.PDOC ---
ED HPI GENERAL MEDICAL PROBLEM - General Chief Complaint: Chest Pain Stated Complaint: CHEST PAIN Time Seen by Provider: 08/16/19 10:43 Source of Information: Reports: Patient - History of Present Illness INITIAL COMMENTS - FREE TEXT/NARRATIVE: HISTORY AND PHYSICAL: History of present illness: [Patient presents with atrial fibrillation her rate to the 130s, he is been in several times over the last week he has pericardial effusion increasing in size was just discharged from the hospital yesterday he has been provided aspirin and Colcrys concerning the effusion She did have episodic chest pain and shortness of breath hence cardioversion was provided with 120 J rate was 170 at that time with more of an SVT rhythm he has been across the map since his arrival from sinus to A. fib and with the SVT , he has been sinus for periods and then returning back into the A. fib with RVR have been in contact with Dr. Carson [facility] as well as talk with Dr. Borrego and cardiology as well they will accept the patient will be transferring [facility] for further treatment and evaluation that the patient is currently stable for transfer at time of this dictation He has no fever nausea vomiting chills sweats] rest pain and shortness of breath is resolved at this time Review of systems: As per history of present illness and below otherwise all systems reviewed and negative. Past medical history: As per history of present illness and as reviewed below otherwise noncontributory. Surgical history: As per history of present illness and as reviewed below otherwise noncontributory. Social history: No reported history of drug or alcohol abuse. Family history: As per history of present illness and as reviewed below otherwise noncontributory. Physical exam: HEENT: Atraumatic, normocephalic, pupils reactive, negative for conjunctival pallor or scleral icterus, mucous membranes moist, throat clear, neck supple, nontender, trachea midline. Lungs: Clear to auscultation, breath sounds equal bilaterally, chest nontender. Heart: S1S2, regular, negative for clicks, rubs, or JVD. Abdomen: Soft, nondistended, nontender. Negative for masses or hepatosplenomegaly. Negative for costovertebral tenderness. Pelvis: Stable nontender. Genitourinary: Deferred. Rectal: Deferred. Extremities: Atraumatic, negative for cords or calf pain. Neurovascular unremarkable. Neuro: Awake, alert, oriented. Cranial nerves II through XII unremarkable. Cerebellum unremarkable. Motor and sensory unremarkable throughout. Exam nonfocal. Diagnostics: [CBC CMP troponin EKG Chest 1 view ] Therapeutics: [ Cardizem 25 mg IV Followed by 20 mg IV Cardizem drip initiated at 5 to titrate 120 J ] Impression: atrial fibrillation with RVR SVT Pericardial effusion ] Definitive disposition and diagnosis as appropriate pending reevaluation and review of above. Chest Pain Score (Numeric/FACES): 9 - Related Data Allergies Allergy/AdvReac Type Severity Reaction Status Date / Time Penicillins Allergy Airway Verified 08/16/19 08:49 Tightness Home Meds: Home Meds Albuterol [Ventolin HFA] 2 puff INH ASDIRECTED PRN 08/04/19 [History] Clopidogrel [Plavix] 75 mg PO DAILY 08/04/19 [History] Fluticasone/Salmeterol [Advair 250-50] 1 puff IH DAILY 08/04/19 [History] Lisinopril 5 mg PO DAILY 08/04/19 [History] Metoprolol Succinate [Toprol XL 50mg] 50 mg PO DAILY 08/04/19 [History] atorvaSTATin Calcium [Atorvastatin Calcium] 20 mg PO BEDTIME 08/04/19 [History] Aspirin 650 mg PO TID tablet 08/15/19 [Rx] oxyCODONE HCl/Acetaminophen [Oxycodone-Acetaminophen 5-325] 1 each PO Q6HR PRN 4 Days #12 tablet 08/15/19 [Rx] Past Medical History HEENT History: Reports: Impaired Vision Other HEENT History: blindness in right eye Cardiovascular History: Reports: Afib, High Cholesterol, Hypertension, VA, Stents Other Cardiovascular History: VA 2013, 2 stents placed per pt Respiratory History: Reports: Asthma Gastrointestinal History: Reports: None Musculoskeletal History: Reports: None Neurological History: Reports: CVA Other Neuro History: 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, optic nerve stroke Psychiatric History: Reports: Anxiety, Depression Endocrine/Metabolic History: Reports: Obesity/BMI 30+ - Infectious Disease History Infectious Disease History: Reports: None - Past Surgical History HEENT Surgical History: Reports: Cataract Surgery Cardiovascular Surgical History: Reports: Coronary Artery Stent Respiratory Surgical History: Reports: None GI Surgical History: Reports: Appendectomy Endocrine Surgical History: Reports: None Neurological Surgical History: Reports: None Musculoskeletal Surgical History: Reports: Knee Replacement Other Musculoskeletal Surgeries/Procedures:: Left knee Social & Family History - Family History Family Medical History: Noncontributory - Tobacco Use Smoking Status *Q: Unknown Ever Smoked - Caffeine Use Caffeine Use: Reports: Coffee, Tea ED ROS GENERAL - Review of Systems Review Of Systems: See Below ED EXAM, GENERAL - Physical Exam Exam: See Below Course - Vital Signs Last Recorded V/S: Last Vital Signs Temp 97.1 F 08/16/19 08:46 Pulse 145 H 08/16/19 11:30 Resp 17 08/16/19 11:30 BP 94/54 L 08/16/19 11:30 Pulse Ox 98 08/16/19 11:30 - Orders/Labs/Meds Orders: Active Orders 24 hr Category Date Time Status EKG Documentation Completion [RC] STAT Care 08/16/19 08:44 Active RT Aerosol Therapy [RC] ASDIRECTED Care 08/16/19 09:38 Active UA RFX RIMMA AND CULT IF INDIC [URIN] Stat Lab 08/16/19 08:44 Ordered Diltiazem 100 mg Med 08/16/19 10:15 Active Sodium Chloride 0.9% [Normal Saline] 100 ml IV ASDIRECTED Medication Orders Diltiazem HCl 100 mg/ Sodium (Chloride) 120 mls @ 5 mls/hr IV ASDIRECTED GERALDINE Labs: Laboratory Tests 08/16/19 08/16/19 Range/Units 08:49 08:49 WBC 13.93 H (4.0-11.0) K/uL RBC 3.80 L (4.50-5.90) M/uL Hgb 11.5 L (13.0-17.0) g/dL Hct 34.9 L (38.0-50.0) % MCV 91.8 (80.0-98.0) fL MCH 30.3 (27.0-32.0) pg MCHC 33.0 (31.0-37.0) g/dL RDW Std Deviation 43.8 (28.0-62.0) fl RDW Coeff of Dominga 13 (11.0-15.0) % Plt Count 404 H (150-400) K/uL MPV 11.80 (7.40-12.00) fL Neut % (Auto) 78.6 (48.0-80.0) % Lymph % (Auto) 11.6 L (16.0-40.0) % [place] % (Auto) 9.3 (0.0-15.0) % Eos % (Auto) 0.4 (0.0-7.0) % Baso % (Auto) 0.1 (0.0-1.5) % Neut # (Auto) 10.9 H (1.4-5.7) K/uL Lymph # (Auto) 1.6 (0.6-2.4) K/uL [place] # (Auto) 1.3 H (0.0-0.8) K/uL Eos # (Auto) 0.1 (0.0-0.7) K/uL Baso # (Auto) 0.0 (0.0-0.1) K/uL Nucleated RBC % 0.0 /100WBC Nucleated RBCs # 0 K/uL Sodium 139 (136-148) mmol/L Potassium 3.5 (3.5-5.1) mmol/L Chloride 100 (98-107) mmol/L Carbon Dioxide 31.2 (21.0-32.0) mmol/L BUN 12 (7.0-18.0) mg/dL Creatinine 1.0 (0.8-1.3) mg/dL Est Cr Clr Drug Dosing TNP Estimated GFR (MDRD) > 60.0 ml/min Glucose 118 H (74-106) mg/dL Calcium 8.8 (8.5-10.1) mg/dL Total Bilirubin 0.9 (0.2-1.0) mg/dL AST 33 (15-37) IU/L ALT 77 H (14-63) IU/L Alkaline Phosphatase 172 H (46-116) U/L Troponin I < 0.050 (0.000-0.056) ng/mL Total Protein 7.3 (6.4-8.2) g/dL Albumin 3.1 L (3.4-5.0) g/dL Globulin 4.2 H (2.6-4.0) g/dL Albumin/Globulin Ratio 0.7 L (0.9-1.6) Meds: Medications Generic Name Dose Route Start Last Admin Trade Name Freq PRN Reason Stop Dose Admin Diltiazem HCl 100 mg/ Sodium 120 mls @ 5 mls/hr 08/16/19 10:15 Chloride IV ASDIRECTED GERALDINE Discontinued Medications Generic Name Dose Route Start Last Admin Trade Name Samra PRN Reason Stop Dose Admin Albuterol/Ipratropium 3 ml 08/16/19 09:38 08/16/19 09:42 Duoneb 3.0-0.5 Mg/3 Ml NEB 08/16/19 09:39 3 ml ONETIME ONE Administration Diltiazem HCl 25 mg 08/16/19 08:46 08/16/19 09:00 Diltiazem IVPUSH 08/16/19 08:47 25 mg ONETIME ONE Administration Diltiazem HCl 20 mg 08/16/19 09:18 08/16/19 09:22 Diltiazem IVPUSH 08/16/19 09:19 20 mg ONETIME ONE Administration Sodium Chloride 1,000 mls @ 999 mls/hr 08/16/19 08:46 08/16/19 09:00 Normal Saline IV 08/16/19 09:46 999 mls/hr STAT ONE Administration Sodium Chloride Confirm 08/16/19 10:09 08/16/19 10:45 Normal Saline Administered 08/16/19 10:10 5 mls/hr Dose Administration 100 mls @ as directed .ROUTE .STK-MED ONE Midazolam HCl 2 mg 08/16/19 11:04 08/16/19 11:26 Versed 1 Mg/Ml IVPUSH 08/16/19 11:05 2 mg ONETIME ONE Administration Morphine Sulfate 2 mg 08/16/19 10:39 08/16/19 10:44 Morphine IVPUSH 08/16/19 10:40 2 mg ONETIME ONE Administration Departure - Departure Time of Disposition: 11:45 Disposition: DC/Tfer to Acute Hospital 02 Condition: Poor Clinical Impression: Atrial fibrillation with RVR - Discharge Information Referrals: Spencer Mott MD [Primary Care Provider] - Forms: ED Department Discharge - My Orders Last 24 Hours: My Active Orders 08/16/19 08:44 EKG Documentation Completion [RC] STAT UA RFX RIMMA AND CULT IF INDIC [URIN] Stat 08/16/19 09:38 RT Aerosol Therapy [RC] ASDIRECTED 08/16/19 10:15 Diltiazem 100 mg Sodium Chloride 0.9% [Normal Saline] 100 ml IV ASDIRECTED - Assessment/Plan Last 24 Hours: My Active Orders 08/16/19 08:44 EKG Documentation Completion [RC] STAT UA RFX RIMMA AND CULT IF INDIC [URIN] Stat 08/16/19 09:38 RT Aerosol Therapy [RC] ASDIRECTED 08/16/19 10:15 Diltiazem 100 mg Sodium Chloride 0.9% [Normal Saline] 100 ml IV ASDIRECTED
[2019-08-16] MEDS ORDERED: Midazolam 1 MG/ML 2 ML SDV IVPUSH ONE (11:04)
== END 2019-08-16 12:03 ==
LOC: MW.ED 08:40
DX: I48.91 Unspecified atrial fibrillation (principal); I69.398 Other sequelae of cerebral infarction; H54.7 Unspecified visual loss; I25.2 Old myocardial infarction; I10 Essential (primary) hypertension; J45.909 Unspecified asthma, uncomplicated; E03.9 Hypothyroidism, unspecified; E66.9 Obesity, unspecified; Z79.02 Long term (current) use of antithrombotics/antiplatelets; Z79.51 Long term (current) use of inhaled steroids; Z79.82 Long term (current) use of aspirin; Z95.5 Presence of coronary angioplasty implant and graft; Z79.899 Other long term (current) drug therapy; Z88.0 Allergy status to penicillin
CPT/HCPCS: 36415; 71045; 80053; 81001; 84484; 85025; 92960; 93005; 94640; 96374; 96375; 99285; J2250; J2270; J3490; J7030; J7040; 99284; A9270-GY; J7620-GY

== ENCOUNTER 2019-09-03 07:08 | Observation (INO) | payer OTHER ==
[2019-09-03] MEDS ORDERED: Sodium Chloride 0.9% 10 ML Syringe FLUSH PRN (07:23)
[2019-09-03] MEDS ORDERED: Sodium Chloride 0.9% 2.5 ML Syringe FLUSH PRN (07:23)
--- NOTE | 2019-09-03 07:28 | EDM.PDOC ---
ED HPI GENERAL MEDICAL PROBLEM - General Chief Complaint: Chest Pain Stated Complaint: CHEST PAIN Time Seen by Provider: 09/03/19 07:13 - History of Present Illness INITIAL COMMENTS - FREE TEXT/NARRATIVE: HISTORY AND PHYSICAL: History of present illness: Patient's a 63-year-old white male with history of atrial fibrillation and pericardial effusion for which she had recent pericardial window who presents with a concern of chest pain this is vaguely described without associated shortness of breath palpitations nausea vomiting or diaphoresis he noted discomfort this morning and described it more in his right lower chest. This is improved Review of systems: As per history of present illness and below otherwise all systems reviewed and negative. Past medical history: As per history of present illness and as reviewed below otherwise noncontributory. Surgical history: As per history of present illness and as reviewed below otherwise noncontributory. Social history: No reported history of drug or alcohol abuse. Family history: As per history of present illness and as reviewed below otherwise noncontributory. Physical exam: HEENT: Atraumatic, normocephalic, pupils reactive, negative for conjunctival pallor or scleral icterus, mucous membranes moist, throat clear, neck supple, nontender, trachea midline. Lungs: Clear to auscultation, breath sounds equal bilaterally, chest nontender. Heart: S1S2, negative for clicks, rubs, or JVD. Abdomen: Soft, nondistended, nontender. Negative for masses or hepatosplenomegaly. Negative for costovertebral tenderness. Pelvis: Stable nontender. Genitourinary: Deferred. Rectal: Deferred. Extremities: Atraumatic, negative for cords or calf pain. Neurovascular unremarkable. Neuro: Awake, alert, oriented. Cranial nerves II through XII unremarkable. Cerebellum unremarkable. Motor and sensory unremarkable throughout. Exam nonfocal. Diagnostics: CBC CMP troponin PT/INR chest x-ray EKG Therapeutics: IV O2 monitor Impression: 1 chest pain #2 history of atrial fibrillation/flutter Definitive disposition and diagnosis as appropriate pending reevaluation and review of above. Chest Pain Pain Score (Numeric/FACES): 5 - Related Data Allergies Allergy/AdvReac Type Severity Reaction Status Date / Time Penicillins Allergy Airway Verified 09/03/19 07:19 Tightness Home Meds: Home Meds Albuterol [Ventolin HFA] 2 puff INH ASDIRECTED PRN 08/04/19 [History] Clopidogrel [Plavix] 75 mg PO DAILY 08/04/19 [History] Fluticasone/Salmeterol [Advair 250-50] 1 puff IH DAILY 08/04/19 [History] Lisinopril 5 mg PO DAILY 08/04/19 [History] Metoprolol Succinate [Toprol XL 50mg] 50 mg PO DAILY 08/04/19 [History] atorvaSTATin Calcium [Atorvastatin Calcium] 20 mg PO BEDTIME 08/04/19 [History] Amiodarone [Cordarone] 200 mg PO DAILY 09/03/19 [History] Colchicine 0.6 mg PO DAILY 09/03/19 [History] Past Medical History HEENT History: Reports: Impaired Vision Other HEENT History: blindness in right eye Cardiovascular History: Reports: Afib, High Cholesterol, Hypertension, PR, Stents Other Cardiovascular History: PR 2013, 2 stents placed per pt Respiratory History: Reports: Asthma Gastrointestinal History: Reports: None Musculoskeletal History: Reports: None Neurological History: Reports: CVA Other Neuro History: 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, optic nerve stroke Psychiatric History: Reports: Anxiety, Depression Endocrine/Metabolic History: Reports: Obesity/BMI 30+ - Infectious Disease History Infectious Disease History: Reports: None - Past Surgical History HEENT Surgical History: Reports: Cataract Surgery Cardiovascular Surgical History: Reports: Coronary Artery Stent Respiratory Surgical History: Reports: None GI Surgical History: Reports: Appendectomy Endocrine Surgical History: Reports: None Neurological Surgical History: Reports: None Musculoskeletal Surgical History: Reports: Knee Replacement Other Musculoskeletal Surgeries/Procedures:: Left knee Social & Family History - Family History Family Medical History: Noncontributory - Caffeine Use Caffeine Use: Reports: Coffee, Tea ED ROS GENERAL - Review of Systems Review Of Systems: Comprehensive ROS is negative, except as noted in HPI. ED EXAM, GENERAL - Physical Exam Exam: See Below (dictation) Course - Vital Signs Last Recorded V/S: Last Vital Signs Temp 36.3 C 09/03/19 07:19 Pulse 88 09/03/19 08:39 Resp 17 09/03/19 08:39 BP 104/70 09/03/19 08:39 Pulse Ox 97 09/03/19 08:39 - Orders/Labs/Meds Orders: Active Orders 24 hr Category Date Time Status Cardiac Monitoring [RC] . DIRECTED Care 09/03/19 07:23 Active EKG 12 Lead [EKG Documentation Completion] [RC] STAT Care 09/03/19 08:26 Active EKG Documentation Completion [RC] STAT Care 09/03/19 07:23 Active UA RFX RIMMA AND CULT IF INDIC [URIN] Stat Lab 09/03/19 07:23 Ordered Sodium Chloride 0.9% [Saline Flush] Med 09/03/19 07:23 Active 10 ml FLUSH ASDIRECTED PRN Sodium Chloride 0.9% [Saline Flush] Med 09/03/19 07:23 Active 2.5 ml FLUSH ASDIRECTED PRN Saline Lock Insert [OM.PC] Stat Oth 09/03/19 07:23 Ordered Medication Orders Sodium Chloride (Saline Flush) 10 ml FLUSH ASDIRECTED PRN PRN Reason: Keep Vein Open Sodium Chloride (Saline Flush) 2.5 ml FLUSH ASDIRECTED PRN PRN Reason: Keep Vein Open Labs: Laboratory Tests 09/03/19 09/03/19 09/03/19 Range/Units 07:17 07:17 07:17 WBC 12.50 H (4.0-11.0) K/uL RBC 4.53 (4.50-5.90) M/uL Hgb 13.2 (13.0-17.0) g/dL Hct 40.2 (38.0-50.0) % MCV 88.7 (80.0-98.0) fL MCH 29.1 (27.0-32.0) pg MCHC 32.8 (31.0-37.0) g/dL RDW Std Deviation 45.2 (28.0-62.0) fl RDW Coeff of Dominga 14 (11.0-15.0) % Plt Count 422 H (150-400) K/uL MPV 12.00 (7.40-12.00) fL Neut % (Auto) 69.4 (48.0-80.0) % Lymph % (Auto) 19.3 (16.0-40.0) % [place] % (Auto) 9.4 (0.0-15.0) % Eos % (Auto) 1.7 (0.0-7.0) % Baso % (Auto) 0.2 (0.0-1.5) % Neut # (Auto) 8.7 H (1.4-5.7) K/uL Lymph # (Auto) 2.4 (0.6-2.4) K/uL [place] # (Auto) 1.2 H (0.0-0.8) K/uL Eos # (Auto) 0.2 (0.0-0.7) K/uL Baso # (Auto) 0.0 (0.0-0.1) K/uL Nucleated RBC % 0.0 /100WBC Nucleated RBCs # 0 K/uL INR 1.16 Sodium 138 (136-148) mmol/L Potassium 3.7 (3.5-5.1) mmol/L Chloride 100 (98-107) mmol/L Carbon Dioxide 27.8 (21.0-32.0) mmol/L BUN 11 (7.0-18.0) mg/dL Creatinine 1.2 (0.8-1.3) mg/dL Est Cr Clr Drug Dosing 64.21 mL/min Estimated GFR (MDRD) > 60.0 ml/min Glucose 117 H (74-106) mg/dL Calcium 8.4 L (8.5-10.1) mg/dL Total Bilirubin 0.7 (0.2-1.0) mg/dL AST 14 L (15-37) IU/L ALT 40 (14-63) IU/L Alkaline Phosphatase 120 H (46-116) U/L Troponin I < 0.050 (0.000-0.056) ng/mL Total Protein 7.0 (6.4-8.2) g/dL Albumin 2.9 L (3.4-5.0) g/dL Globulin 4.1 H (2.6-4.0) g/dL Albumin/Globulin Ratio 0.7 L (0.9-1.6) Meds: Medications Generic Name Dose Route Start Last Admin Trade Name Freq PRN Reason Stop Dose Admin Sodium Chloride 10 ml 09/03/19 07:23 Saline Flush FLUSH ASDIRECTED PRN Keep Vein Open Sodium Chloride 2.5 ml 09/03/19 07:23 Saline Flush FLUSH ASDIRECTED PRN Keep Vein Open Departure - Departure Time of Disposition: 08:43 Disposition: Refer to Observation Condition: Good Clinical Impression: Chest pain - Discharge Information Forms: ED Department Discharge Sepsis Event Note - Evaluation Sepsis Screening Result: No Definite Risk - Focused Exam Vital Signs: Vital Signs Temp Pulse Resp BP Pulse Ox 09/03/19 08:39 88 17 104/70 97 09/03/19 07:40 87 17 103/68 97 09/03/19 07:19 36.3 C 101 H 18 111/70 98 Date Exam was Performed: 09/03/19 Time Exam was Performed: 08:42 - My Orders Last 24 Hours: My Active Orders 09/03/19 07:23 Cardiac Monitoring [RC] . DIRECTED EKG Documentation Completion [RC] STAT UA RFX RIMMA AND CULT IF INDIC [URIN] Stat Sodium Chloride 0.9% [Saline Flush] 10 ml FLUSH ASDIRECTED PRN Sodium Chloride 0.9% [Saline Flush] 2.5 ml FLUSH ASDIRECTED PRN Saline Lock Insert [OM.PC] Stat 09/03/19 08:26 EKG 12 Lead [EKG Documentation Completion] [RC] STAT - Assessment/Plan Last 24 Hours: My Active Orders 09/03/19 07:23 Cardiac Monitoring [RC] . DIRECTED EKG Documentation Completion [RC] STAT UA RFX RIMMA AND CULT IF INDIC [URIN] Stat Sodium Chloride 0.9% [Saline Flush] 10 ml FLUSH ASDIRECTED PRN Sodium Chloride 0.9% [Saline Flush] 2.5 ml FLUSH ASDIRECTED PRN Saline Lock Insert [OM.PC] Stat 09/03/19 08:26 EKG 12 Lead [EKG Documentation Completion] [RC] STAT
[2019-09-03 07:49] LABS: BLOOD UREA NITROGEN,BUN 11 mg/dL (7.0-18.0); CARBON DIOXIDE,CO2 27.8 mmol/L (21.0-32.0); CHLORIDE,CL 100 mmol/L (98-107); GLUCOSE RANDOM 117 mg/dL (74-106); POTASSIUM,K 3.7 mmol/L (3.5-5.1); SODIUM,NA 138 mmol/L (136-148)
--- NOTE | 2019-09-03 08:08 | CR ---
CHEST 1 VIEW AP INDICATION: Chest pain IMPRESSION: Mild cardiomegaly but decreased since prior exam August 16, 2019. There is a new left basilar pleural effusion and some probable underlying atelectasis left lower lobe. FINDINGS: Heart mediastinum: The cardiac silhouette is decreased in size. The vascularity appears normal. Lungs and pleura: Blunting of the left costophrenic sulcus suggesting a left pleural effusion. Visualized lungs are clear of consolidation. Dictated by Jayson Su MD @ Sep 03 2019 8:06AM Signed by Dr. Jayson Su @ Sep 03 2019 8:07AM
[2019-09-03] MEDS ORDERED: Clopidogrel 75 MG Tab PO SCH (11:00)
[2019-09-03] MEDS ORDERED: Lisinopril 5 MG Tab PO SCH (11:15)
[2019-09-03] MEDS ORDERED: Metoprolol Succinate 50 MG Tab.ER PO SCH (11:15)
--- NOTE | 2019-09-03 11:17 | PCM.HP.2 ---
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 he reports last evening he had some L shoulder and neck pain, which was similar to when he had the pericardial effusion. This improved, but then he woke up this morning with midsternal pain that radiated to the R chest and wrapped around. He reports the inability to take a deep breath at that time, but by the time he got to the ED it had nearly passed. He denies diaphoresis with that. No other pain, no pain to L shoulder or neck. He reports he followed up with Cardiology and had sutures removed from drain sites. He reports they seemed happy with everything. He reported he slept most of the drive there and back. He felt dizzy and lightheaded when he was at the appointment, but no chest pain during then. He was discharged on Eliquis for afib, along with Plavix, Colchicine, Amiodarone 200 mg daily. He reports mild diarrhea for the last couple days and a "sour stomach". He hasn't been eating for drinking much either. He denies drainage or weeping from chest incision. No abdominal pain. Denies black or bloody BMs. No focal neurologic concerns. In the ED, mild leukocytosis noted at 12,500, platelets 422, Na 138, K+ 3.7, Troponin negative. Initial EKG Afib RVR, without treatment repeat EKG SR. He denied chest pain on arrival. He will be admitted for chest pain rule out. Chest Pain Pain Score (Numeric/FACES): 5 Right Chest Pain Score (Numeric/FACES): 3 Left Neck Pain Score (Numeric/FACES): 3 - Related Data Allergies/Adverse Reactions: Allergies Allergy/AdvReac Type Severity Reaction Status Date / Time Penicillins Allergy Airway Verified 09/03/19 10:09 Tightness Home Medications: Home Meds Albuterol [Ventolin HFA] 2 puff INH ASDIRECTED PRN 08/04/19 [History] Clopidogrel [Plavix] 75 mg PO DAILY 08/04/19 [History] Fluticasone/Salmeterol [Advair 250-50] 1 puff IH DAILY 08/04/19 [History] Lisinopril 5 mg PO DAILY 08/04/19 [History] Metoprolol Succinate [Toprol XL 50mg] 50 mg PO DAILY 08/04/19 [History] atorvaSTATin Calcium [Atorvastatin Calcium] 20 mg PO BEDTIME 08/04/19 [History] Amiodarone [Cordarone] 200 mg PO BID 09/03/19 [History] Apixaban [Eliquis] 5 mg PO BID 09/03/19 [History] Colchicine 0.6 mg PO BID 09/03/19 [History] Past Medical History HEENT History: Reports: Impaired Vision Other HEENT History: 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 Cardiovascular History: Reports: Afib, CAD, High Cholesterol, Hypertension, CA, Stents, Other (See Below) (Pericardial effusion with pericardial window, 07/2019 ) Other Cardiovascular History: CA 2013, 2 stents placed per pt Respiratory History: Reports: Asthma, Sleep Apnea Gastrointestinal History: Reports: None Genitourinary History: Reports: Renal Calculus Musculoskeletal History: Reports: Fracture Neurological History: Reports: 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) Psychiatric History: Reports: Anxiety, Depression Endocrine/Metabolic History: Reports: Obesity/BMI 30+ - Infectious Disease History Infectious Disease History: Reports: None - Past Surgical History HEENT Surgical History: Reports: Cataract Surgery Cardiovascular Surgical History: Reports: Coronary Artery Stent, Other (See Below) Other Cardiovascular Surgeries/Procedures: Pericardial Window July 2019 Respiratory Surgical History: Reports: None GI Surgical History: Reports: Appendectomy Male Surgical History: Reports: None Endocrine Surgical History: Reports: None Neurological Surgical History: Reports: None Musculoskeletal Surgical History: Reports: Knee Replacement Other Musculoskeletal Surgeries/Procedures:: Left knee Social & Family History - Family History Family Medical History: Noncontributory - Tobacco Use Smoking Status *Q: Never Smoker - Caffeine Use Caffeine Use: Reports: Coffee, Tea - Alcohol Use Alcohol Use History: No - Recreational Drug Use Recreational Drug Use: No - Living Situation & Occupation Living situation: Reports: H&P Review of Systems - Review of Systems: Review Of Systems: See Below General: Reports: Malaise, Fatigue. Denies: Fever, Chills HEENT: Reports: No Symptoms. Denies: Headaches, Sinus Congestion, Sore Throat, Vertigo Pulmonary: Denies: Shortness of Breath, Pleuritic Chest Pain, Cough Cardiovascular: Reports: Chest Pain (not since this morning), Lightheadedness. Denies: Edema Gastrointestinal: Reports: Other (belching, "sore stomach" a lot of heartburn). Denies: Abdominal Pain Genitourinary: Reports: No Symptoms. Denies: Dysuria, Frequency, Burning Skin: Reports: Wound (healing incision just belowe sternum) Psychiatric: Reports: No Symptoms Neurological: Reports: No Symptoms Hematologic/Lymphatic: Reports: No Symptoms Immunologic: Reports: No Symptoms Exam - Exam Exam: See Below - Vital Signs Vital Signs: Last Vital Signs Temp 97.7 F 09/03/19 09:57 Pulse 93 09/03/19 09:57 Resp 18 09/03/19 09:57 BP 98/66 09/03/19 09:57 Pulse Ox 97 09/03/19 09:57 Weight: 96 kg - Exam General: Alert, Oriented, Cooperative, Other (noted to be belching frequently) HEENT: Conjunctiva Clear, Mucosa Moist & Lingle, Pupils Equal, Pupils Reactive Neck: Supple, Trachea Midline Lungs: Clear to Auscultation, Normal Respiratory Effort Cardiovascular: Regular Rate, Regular Rhythm GI/Abdominal Exam: Normal Bowel Sounds, Soft, Non-Tender Extremities: Normal Inspection, Normal Range of Motion, Non-Tender, No Pedal Edema Skin: Incision (healing incision just below sternum. with two drain sites, all healed. No erythema or drainage.) Neuro Extensive - Mental Status: Alert, Oriented x3 Neuro Extensive - Motor, Sensory, Reflexes: CN II-XII Intact Psychiatric: Alert, Normal Affect, Normal Mood - Patient Data Lab Results Last 24 hrs: Laboratory Results - last 24 hr 09/03/19 09/03/19 09/03/19 Range/Units 07:17 07:17 07:17 WBC 12.50 H (4.0-11.0) K/uL RBC 4.53 (4.50-5.90) M/uL Hgb 13.2 (13.0-17.0) g/dL Hct 40.2 (38.0-50.0) % MCV 88.7 (80.0-98.0) fL MCH 29.1 (27.0-32.0) pg MCHC 32.8 (31.0-37.0) g/dL RDW Std Deviation 45.2 (28.0-62.0) fl RDW Coeff of [place] 14 (11.0-15.0) % Plt Count 422 H (150-400) K/uL MPV 12.00 (7.40-12.00) fL Neut % (Auto) 69.4 (48.0-80.0) % Lymph % (Auto) 19.3 (16.0-40.0) % [place] % (Auto) 9.4 (0.0-15.0) % Eos % (Auto) 1.7 (0.0-7.0) % Baso % (Auto) 0.2 (0.0-1.5) % Neut # (Auto) 8.7 H (1.4-5.7) K/uL Lymph # (Auto) 2.4 (0.6-2.4) K/uL [place] # (Auto) 1.2 H (0.0-0.8) K/uL Eos # (Auto) 0.2 (0.0-0.7) K/uL Baso # (Auto) 0.0 (0.0-0.1) K/uL Nucleated RBC % 0.0 /100WBC Nucleated RBCs # 0 K/uL INR 1.16 Sodium 138 (136-148) mmol/L Potassium 3.7 (3.5-5.1) mmol/L Chloride 100 (98-107) mmol/L Carbon Dioxide 27.8 (21.0-32.0) mmol/L BUN 11 (7.0-18.0) mg/dL Creatinine 1.2 (0.8-1.3) mg/dL Est Cr Clr Drug Dosing 64.21 mL/min Estimated GFR (MDRD) > 60.0 ml/min Glucose 117 H (74-106) mg/dL Calcium 8.4 L (8.5-10.1) mg/dL Total Bilirubin 0.7 (0.2-1.0) mg/dL AST 14 L (15-37) IU/L ALT 40 (14-63) IU/L Alkaline Phosphatase 120 H (46-116) U/L Troponin I < 0.050 (0.000-0.056) ng/mL Total Protein 7.0 (6.4-8.2) g/dL Albumin 2.9 L (3.4-5.0) g/dL Globulin 4.1 H (2.6-4.0) g/dL Albumin/Globulin Ratio 0.7 L (0.9-1.6) Result Diagrams: 09/03/19 07:17 09/03/19 07:17 Sepsis Event Note - Evaluation Sepsis Screening Result: No Definite Risk - Focused Exam Vital Signs: Vital Signs Temp Pulse Resp BP Pulse Ox 09/03/19 09:57 97.7 F 93 18 98/66 97 09/03/19 08:39 88 17 104/70 97 09/03/19 07:40 87 17 103/68 97 09/03/19 07:19 97.3 F 101 H 18 111/70 98 Date Exam was Performed: 09/03/19 Time Exam was Performed: 13:41 - Problem List (1) Chest pain SNOMED Code(s): 12146857 ICD Code: R07.9 - CHEST PAIN, UNSPECIFIED Status: Acute Current Visit: Yes (2) S/P pericardial window creation SNOMED Code(s): 706079488 ICD Code: Z98.890 - OTHER SPECIFIED POSTPROCEDURAL STATES Status: Chronic Current Visit: Yes (3) HTN (hypertension) SNOMED Code(s): 64873410 ICD Code: I10 - ESSENTIAL (PRIMARY) HYPERTENSION Status: Chronic Current Visit: Yes Qualifiers: Hypertension type: essential hypertension Qualified Code(s): I10 - Essential (primary) hypertension (4) Hx of myocardial infarction SNOMED Code(s): 298641960 ICD Code: I25.2 - OLD MYOCARDIAL INFARCTION Status: Chronic Current Visit : Yes (5) History of CVA with residual deficit SNOMED Code(s): 999104088 ICD Code: I69.30 - UNSPECIFIED SEQUELAE OF CEREBRAL INFARCTION Status: Chronic Current Visit: Yes (6) Anxiety SNOMED Code(s): 26985386 ICD Code: F41.9 - ANXIETY DISORDER, UNSPECIFIED Status: Chronic Current Visit: Yes (7) CAD (coronary artery disease) SNOMED Code(s): 58924744 ICD Code: I25.10 - ATHSCL HEART DISEASE OF [place] CORONARY ARTERY W/O ANG PCTRS Status: Chronic Current Visit: Yes Qualifiers: Coronary Disease-Associated Artery/Lesion type: [place] artery [place] vs. transplanted heart: [place] heart Associated angina: without angina Qualified Code(s): I25.10 - Atherosclerotic heart disease of [place] coronary artery without angina pectoris (8) GERD (gastroesophageal reflux disease) SNOMED Code(s): 729048681 ICD Code: K21.9 - GASTRO-ESOPHAGEAL REFLUX DISEASE WITHOUT ESOPHAGITIS Status: Chronic Current Visit: Yes Qualifiers: Esophagitis presence: esophagitis presence not specified Qualified Code(s) : K21.9 - Gastro-esophageal reflux disease without esophagitis (9) Atrial fibrillation with rapid ventricular response SNOMED Code(s): 110669346854759 ICD Code: I48.91 - UNSPECIFIED ATRIAL FIBRILLATION Status: Chronic Current Visit: No (10) Pericardial effusion SNOMED Code(s): 839106380 ICD Code: I31.3 - PERICARDIAL EFFUSION (NONINFLAMMATORY) Status: Chronic Current Visit: No Problem List Initiated/Reviewed/Updated: Yes Orders Last 24hrs: Active Orders 24 hr Category Date Time Status Patient Status [ADT] Stat ADT 09/03/19 08:44 Active Cardiac Monitoring [RC] Q8H Care 09/03/19 07:23 Active EKG 12 Lead [EKG Documentation Completion] [RC] STAT Care 09/03/19 08:26 Active EKG Documentation Completion [RC] STAT Care 09/03/19 07:23 Active Telemetry Monitoring [Cardiac Monitoring] [RC] . Care 09/03/19 10:57 Active DIRECTED Heart Healthy Diet [DIET] Diet 09/03/19 Lunch Active Echo Comp wo Cont [US] Urgent Exams 09/03/19 10:57 Ordered TROPONIN I [CHEM] Q6H Lab 09/03/19 13:00 Ordered TROPONIN I [CHEM] Q6H Lab 09/03/19 19:00 Ordered UA RFX RIMMA AND CULT IF INDIC [URIN] Stat Lab 09/03/19 07:23 Ordered Albuterol [Ventolin HFA] Med 09/03/19 11:00 Active 0 gm INH Q4HRRT PRN Amiodarone [Cordarone] Med 09/03/19 11:00 Active 200 mg PO BID Apixaban [Eliquis] Med 09/03/19 11:00 Active 5 mg PO BID Clopidogrel [Plavix] Med 09/03/19 11:00 Active 75 mg PO DAILY Colchicine [Colcrys] Med 09/03/19 11:15 Active 0.6 mg PO BID Fluticasone/Salmeterol [Advair Diskus 250-50] Med 09/03/19 11:15 Active 1 puff INH DAILY Lisinopril [Prinivil] Med 09/03/19 11:15 Active 5 mg PO DAILY Metoprolol Succinate [Toprol XL] Med 09/03/19 11:15 Active 50 mg PO DAILY Sodium Chloride 0.9% [Saline Flush] Med 09/03/19 07:23 Active 10 ml FLUSH ASDIRECTED PRN Sodium Chloride 0.9% [Saline Flush] Med 09/03/19 07:23 Active 2.5 ml FLUSH ASDIRECTED PRN atorvaSTATin [Lipitor] Med 09/03/19 21:00 Active 20 mg PO BEDTIME Saline Lock Insert [OM.PC] Stat Oth 09/03/19 07:23 Ordered Medication Orders Albuterol (Ventolin Hfa) 0 gm INH Q4HRRT PRN PRN Reason: Wheezing Amiodarone HCl (Cordarone) 200 mg PO BID GERALDINE Apixaban (Eliquis) 5 mg PO BID GERALDINE Atorvastatin Calcium (Lipitor) 20 mg PO BEDTIME GERALDINE Clopidogrel Bisulfate (Plavix) 75 mg PO DAILY GERALDINE Colchicine (Colcrys) 0.6 mg PO BID GERALDINE Lisinopril (Prinivil) 5 mg PO DAILY GERALDINE Metoprolol Succinate (Toprol Xl) 50 mg PO DAILY GERALDINE Fluticasone/Salmeterol (Advair Diskus 250-50) 1 puff INH DAILY GERALDINE Sodium Chloride (Saline Flush) 10 ml FLUSH ASDIRECTED PRN PRN Reason: Keep Vein Open Sodium Chloride (Saline Flush) 2.5 ml FLUSH ASDIRECTED PRN PRN Reason: Keep Vein Open Assessment/Plan Comment:: This 63 year old male admitted with chest pain 1. Chest pain: Will monitor on telemetry, Trend troponins. Obtain ECHO due to recent pericardial effusion and pericardial window to make sure effusion has not reoccurred. Spoke with Dr Begum, he will see patient, recommended CRP ESR. reports sour stomach, will give Protonix, was on full dose asa, consider gastritis as well. 2. Afib: Remains in SR on telemetry. Continue Amiodarone and Metoprolol. Also continue Eliquis. 3. HTN: BP on the softer side. Hold antihypertensives this afternoon. Will monitor. 4. CAD: Continue Plavix. monitoring chest pain as above. VTE prophylaxis: Eliquis Dispo: 1 day. - Mortality Measure Prognosis:: Good
[2019-09-03] MEDS ORDERED: Pantoprazole 40 MG in Sodium Chloride 0.9% 10 ML IV STA (11:52)
[2019-09-03] MEDS: Fluticasone/Salmeterol 250-50 MCG Inhalation Powder 14/Diskus INH SCH (12:06)
[2019-09-03] MEDS ORDERED: Albuterol/Ipratropium 3.0-0.5 MG/3 ML Neb Soln NEB PRN (12:13)
[2019-09-03] MEDS ORDERED: Ondansetron 4 MG/2 ML SDV IVPUSH PRN (12:13)
[2019-09-03] MEDS ORDERED: Acetaminophen 325 MG Tab PO PRN (12:13)
[2019-09-03] MEDS: Colchicine 0.6 MG Tab PO SCH ×2 (12:15→21:28)
[2019-09-03] MEDS: Apixaban 5 MG Tab PO SCH ×2 (12:15→21:28)
[2019-09-03] MEDS: Amiodarone 200 MG Tab PO SCH ×2 (12:15→21:28)
[2019-09-03] MEDS ORDERED: Metoprolol Succinate 25 MG Tab.ER PO ONE (18:16)
[2019-09-03] MEDS: Diltiazem 25 MG/5 ML SDV IVPUSH STA ×2 (18:17→18:31)
[2019-09-03] MEDS: atorvaSTATin 20 MG Tab PO SCH (21:28)
--- NOTE | 2019-09-03 22:11 | CONS ---
DATE OF CONSULTATION: DATE OF : 1955 PRIMARY CARE PHYSICIAN: None PCP REASON FOR CONSULTATION: Chest pain, pericardial effusion. HISTORY OF PRESENT ILLNESS: This is a 63-year-old male who has a history of remote CAD in 2011, hypertension, and hyperlipidemia. I saw him last month on Aug 04, 2019 because of the chest pain. It was typical for pericarditis. He was found to have moderate size of pericardial effusion. At that time, he also had a chest CT, it was noted 15 HU. I had the discussion with radiologist Dr. Saravia, he stated that it does not look like acute process, possibly some seroanginous. Then, he was started on the colchicine as well as aspirin high dose 650 three times a day along with Plavix which he already had been on. Afterwards, he came into the emergency room 2 times for the chest pain. On 16 of August, he presented with episodic chest pain with a new onset of atrial fibrillation with RVR. At that time, he also was given via cardioversion with 120 joules, and it was converted to sinus briefly and came back to atrial fibrillation, and at that time, the echo was not repeated; It was noted the heart size seems to be enlarging from CXR. Therefore, the decision was made to transfer the patient to [place]. HOSPITAL COURSE in [place]: He was admitted in [facility] in [place] from August 16 to August 20, and he underwent pericardiocentesis with tube placement on August 16 by thoracic surgeon, and it was noted that like pericardial fluid was bloody, and it was obtained a liter, and the culture and also the cytology seemed to be unremarkable so far. There is no inflammatory marker checked at that time. When he was discharged from the hospital, he was discharged with amiodarone 200 once a day, apixaban 5 mg twice a day, colchicine 0.6 twice a day, Lipitor 20 mg once a day, Plavix 75 mg once a day, lisinopril 5 mg once a day, and metoprolol succinate 50 mg once a day. Then he came back to see thoracic surgeon yesterday on the 02 of September for followup, and it turned out to be okay. Echo was repeated after pericardiocentesis, and it showed decrease in size of pericardial effusion. While he was there in [place], he has paroxysmal atrial fibrillation. He was started on amiodarone as well as the Eliquis 5 twice a day, and the Eliquis was started after the drain was removed and also after he was cleared by the thoracic surgeon, and also he is still on Plavix; however, when he discharged from the hospital, the aspirin was stopped. When he came in at this time, he came in with Plavix 75 mg once a day, Eliquis 5 mg twice a day for atrial fibrillation as well as colchicine. He also was on metoprolol 50 mg once a day as well as lisinopril for his blood pressure, and the amiodarone he was on 200 mg twice a day. When we checked his CRP, it was elevated. Initially, it was 3. It was going up to 18, and at this time, when he came back to the hospital, his CRP was 6. I do not have echocardiogram images that was done after the drainage, but at this time when we repeated echocardiogram today when he was admitted here today, it looks like there was [id number] size of pericardial effusion. It is circumferential. No evidence of cardiac tamponade and ejection fraction is still preserved at 55% to 60%. He presented here at this time because of pain on the right side of the chest wall, which is totally different than the pain that he felt from pericardial effusion at that time. He does try to take out the pain pump positioned at the retrosternal area radiating to his shoulder area; however, this pain does not feel like that. The pain is well localized on the right side of the chest wall. PAST MEDICAL HISTORY: Including hypertension, dyslipidemia, and history of CAD, status post remote LAD stenting. FAMILY HISTORY: No family history of CAD. SOCIAL HISTORY: He is a nonsmoker. Occasional alcohol use. No drug use. CURRENT MEDICATIONS: Including atorvastatin, Plavix 75 mg once a day, metoprolol 50 mg once a day, amiodarone 200 mg twice a day, and colchicine 0.6 twice a day. PHYSICAL EXAMINATION: VITAL SIGNS: At this time, heart rate ranging between 72 to 140 in sinus in atrial fibrillation, possible flutter; blood pressure is ranging between 98 to 117; the O2 saturation is 97% to 100% on room air, and respiration ranged between 14 to 20. HEENT: Not pale. Not jaundiced. Mild swelling on the left supraclavicular area, nontender. HEART: Tachycardia, totally irregular. LUNGS: Clear bilaterally. ABDOMEN: Soft, nontender. Bowel sounds are present. No hepatosplenomegaly. LEGS: No edema. INVESTIGATIONS: The echocardiogram showed preserved ejection fraction and there is small-to- moderate pericardial effusion. I have discussed with Dr. Womack who has seen the patient when he was there, and I asked him to also pull up the echocardiogram that he had prior to discharge, and he feels that the pericardial effusion definitely improved including today. I am going to obtain the images from the [place] to review by myself as well. EKG shows tachycardia. EKG on September 03, 7 a.m. show possible cross atrial fibrillation but could be atrial flutter as well, heart rate of 99, and QRS duration 107 and EKG on September 03 at 8 a.m. shows sinus rhythm, heart rate of 89, DE interval 162, and QRS duration 107. ASSESSMENT AND PLAN: This is a 63-year-old male with history of stroke; history of atrial flutter and atrial fibrillation; coronary artery disease, status post remote stenting; hypertension; dyslipidemia with hemorrhagic large pericardial effusion; cardiac tamponade, status post pericardiocentesis; and status post drainage placement; came in to the hospital with chest pain, and it was localized on the right side of his chest wall totally different than the chest pain that he felt from pericardial effusion. Also with persistent atrial fibrillation, possible flutter with rapid ventricular response. Recommended to stop the lisinopril because the blood pressure was borderline and received Toprol-XL 50 mg today once a day and tomorrow we can increase it to 100 mg and continue the amiodarone 200 mg twice a day. I will probably stop the Plavix for now and also resume the aspirin 650 t.i.d. and also continue Eliquis for his atrial fibrillation. I will also obtain the echo images from [place] to review. Definitely CRP at this time was 6, was coming down from 18 last time. He needs to continue the aspirin high dose at least for 4 weeks and repeat the echo as well as the CRP. I will stop the Plavix. I am concerned about the pericardial effusion even though the workup so far has been negative for malignancy as well as infection, and pericardial biopsy only showed chronic pericarditis, there is no evidence of malignancy so far. I will follow the patient. DEEPPEE / MODL /[id number] MTDD
[2019-09-03] MEDS: Aspirin 325 MG Tab PO SCH (22:54)
[2019-09-04] MEDS: Albuterol 8 GM Inhaler INH PRN (04:42)
[2019-09-04] MEDS: Aspirin 325 MG Tab PO SCH ×3 (06:35→21:11)
[2019-09-04] MEDS: Pantoprazole 40 MG Tab.CR PO SCH (06:35)
[2019-09-04] MEDS: Metoprolol Succinate 50 MG Tab.ER PO SCH (08:08)
[2019-09-04] MEDS: Apixaban 5 MG Tab PO SCH ×2 (08:08→21:10)
[2019-09-04] MEDS: Colchicine 0.6 MG Tab PO SCH ×2 (08:08→21:10)
[2019-09-04] MEDS: Amiodarone 200 MG Tab PO SCH ×2 (08:08→21:11)
[2019-09-04] MEDS: Fluticasone/Salmeterol 250-50 MCG Inhalation Powder 14/Diskus INH SCH (08:37)
[2019-09-04 09:30] LABS: BLOOD UREA NITROGEN,BUN 12 mg/dL (7.0-18.0); CHLORIDE,CL 102 mmol/L (98-107); GLUCOSE RANDOM 89 mg/dL (74-106); POTASSIUM,K 3.8 mmol/L (3.5-5.1); SODIUM,NA 138 mmol/L (136-148)
[2019-09-04] MEDS ORDERED: Iopamidol 755 MG/ML 200 ML Multipack Bottle IVPUSH ONE (11:34)
--- NOTE | 2019-09-04 12:02 | CT ---
EXAM DATE: 09/03/19 PATIENT'S AGE: 63 CT chest Technique: Multiple axial sections through the chest were obtained. Intravenous contrast was utilized. Comparison: Comparison: Prior CT chest of 08/04/19. Findings: Pericardial effusion is seen. This shows increased Hounsfield unit measurements compatible with slightly complicated fluid. This pericardial effusion has slightly diminished in amount from previous exam but has not yet resolved. Left-sided pleural effusion is seen which is mild in amount which has increased in amount from previous exam. Coronary artery calcification is seen. Atherosclerotic calcification is noted within the thoracic aorta. Slightly ectatic ascending aorta is noted. No aortic dissection or focal aneurysm is seen. Mediastinum and hilar regions show no adenopathy or mass. No axillary adenopathy is seen. Compressive type atelectasis is seen within the left base secondary to the pleural effusion. Lungs otherwise are clear. Subclavian arteries are patent. No soft tissue abnormalities are seen around the subclavian arteries. Bone window settings were reviewed which shows scattered degenerative change within the spine. No acute osseous finding is seen. Impression: 1. Compressive atelectasis within the left base. This is caused by a small sized pleural effusion. This pleural effusion has increased in amount from previous exam. 2. Complicated pericardial effusion which has slightly diminished in amount from previous exam. 3. Other findings which are believed to be incidental as noted above. Diagnostic code #3 This report was dictated in [place] Standard Time Report Signed by Proxy. MARIA FARERI CHILDREN'S HOSPITALJanelle
--- NOTE | 2019-09-04 17:05 | PCM.PN ---
- General Info Date of Service: 09/04/19 Admission Dx/Problem (Free Text): Admission Diagnosis/Problem Admission Diagnosis/Problem Chest pain Subjective Update: Feeling tired today. No chest pain, intermittent L shoulder ans scapular pain. Mild palpitations overnight. Functional Status: Reports: Pain Controlled, Tolerating Diet, Ambulating - Review of Systems General: Reports: Fatigue, Malaise Pulmonary: Reports: No Symptoms. Denies: Shortness of Breath, Pleuritic Chest Pain Cardiovascular: Denies: Chest Pain, Dyspnea on Exertion Gastrointestinal: Reports: No Symptoms. Denies: Abdominal Pain, Nausea Genitourinary: Reports: No Symptoms. Denies: Dysuria, Frequency Musculoskeletal: Reports: No Symptoms Skin: Reports: No Symptoms Neurological: Reports: No Symptoms Psychiatric: Reports: No Symptoms - Patient Data Vitals - Most Recent: Last Vital Signs Temp 99.3 F 09/04/19 15:42 Pulse 92 09/04/19 15:42 Resp 18 09/04/19 15:42 BP 101/52 L 09/04/19 15:42 Pulse Ox 95 09/04/19 15:42 Weight - Most Recent: 96 kg I&O - Last 24 Hours: Intake & Output 09/04/19 09/04/19 09/04/19 06:59 14:59 22:59 Intake Total 550 Output Total 400 Balance 150 Lab Results Last 24 Hours: Laboratory Results - last 24 hr 09/03/19 09/04/19 09/04/19 Range/Units 19:29 08:12 08:12 WBC 11.30 H (4.0-11.0) K/uL RBC 4.56 (4.50-5.90) M/uL Hgb 13.2 (13.0-17.0) g/dL Hct 40.1 (38.0-50.0) % MCV 87.9 (80.0-98.0) fL MCH 28.9 (27.0-32.0) pg MCHC 32.9 (31.0-37.0) g/dL RDW Std Deviation 44.4 (28.0-62.0) fl RDW Coeff of [place] 14 (11.0-15.0) % Plt Count 364 (150-400) K/uL MPV 12.30 H (7.40-12.00) fL Neut % (Auto) 65.6 (48.0-80.0) % Lymph % (Auto) 20.2 (16.0-40.0) % [place] % (Auto) 10.9 (0.0-15.0) % Eos % (Auto) 3.0 (0.0-7.0) % Baso % (Auto) 0.3 (0.0-1.5) % Neut # (Auto) 7.4 H (1.4-5.7) K/uL Lymph # (Auto) 2.3 (0.6-2.4) K/uL [place] # (Auto) 1.2 H (0.0-0.8) K/uL Eos # (Auto) 0.3 (0.0-0.7) K/uL Baso # (Auto) 0.0 (0.0-0.1) K/uL Nucleated RBC % 0.0 /100WBC Nucleated RBCs # 0 K/uL Sodium 138 (136-148) mmol/L Potassium 3.8 (3.5-5.1) mmol/L Chloride 102 (98-107) mmol/L Carbon Dioxide 26.0 (21.0-32.0) mmol/L BUN 12 (7.0-18.0) mg/dL Creatinine 0.9 (0.8-1.3) mg/dL Est Cr Clr Drug Dosing 74.83 mL/min Estimated GFR (MDRD) > 60.0 ml/min Glucose 89 (74-106) mg/dL Calcium 8.5 (8.5-10.1) mg/dL Magnesium 1.8 (1.8-2.4) mg/dL Troponin I < 0.050 (0.000-0.056) ng/mL Med Orders - Current: Current Medications Acetaminophen (Tylenol) 650 mg PO Q4H PRN PRN Reason: Pain (Mild 1-3)/fever Albuterol (Ventolin Hfa) 0 gm INH Q4HRRT PRN PRN Reason: Wheezing Last Admin: 09/04/19 04:42 Dose: 1 puff Albuterol/Ipratropium (Duoneb 3.0-0.5 Mg/3 Ml) 3 ml NEB Q4HRRT PRN PRN Reason: Shortness Of Breath/wheezing Amiodarone HCl (Cordarone) 200 mg PO BID [facility] Last Admin: 09/04/19 08:08 Dose: 200 mg Apixaban (Eliquis) 5 mg PO BID [facility] Last Admin: 09/04/19 08:08 Dose: 5 mg Aspirin (Aspirin) 650 mg PO TID [facility] Last Admin: 09/04/19 14:30 Dose: 650 mg Atorvastatin Calcium (Lipitor) 20 mg PO BEDTIME [facility] Last Admin: 09/03/19 21:28 Dose: 20 mg Colchicine (Colcrys) 0.6 mg PO BID [facility] Last Admin: 09/04/19 08:08 Dose: 0.6 mg Metoprolol Succinate (Toprol Xl) 100 mg PO DAILY [facility] Last Admin: 09/04/19 08:08 Dose: 100 mg Ondansetron HCl (Zofran) 4 mg IVPUSH Q4H PRN PRN Reason: Nausea Pantoprazole Sodium (Protonix) 40 mg PO ACBREAKFAST [facility] Last Admin: 09/04/19 06:35 Dose: 40 mg Fluticasone/Salmeterol (Advair Diskus 250-50) 1 puff INH DAILY [facility] Last Admin: 09/04/19 08:37 Dose: 1 puff Sodium Chloride (Saline Flush) 10 ml FLUSH ASDIRECTED PRN PRN Reason: Keep Vein Open Sodium Chloride (Saline Flush) 2.5 ml FLUSH ASDIRECTED PRN PRN Reason: Keep Vein Open Discontinued Medications Clopidogrel Bisulfate (Plavix) 75 mg PO DAILY [facility] Last Admin: 09/03/19 12:15 Dose: 75 mg Diltiazem HCl (Diltiazem) 10 mg IVPUSH ONETIME STA Stop: 09/03/19 17:32 Last Admin: 09/03/19 18:31 Dose: Not Given Pantoprazole Sodium 40 mg/ (Sodium Chloride) 10 mls @ 300 mls/hr IV NOW STA Stop: 09/03/19 11:53 Last Admin: 09/03/19 12:14 Dose: 300 mls/hr Iopamidol (Isovue Multipack-370 (76%)) 100 ml IVPUSH ONETIME ONE Stop: 09/04/19 11:35 Last Admin: 09/04/19 11:35 Dose: 100 ml Lisinopril (Prinivil) 5 mg PO DAILY [facility] Last Admin: 09/03/19 12:58 Dose: Not Given Metoprolol Succinate (Toprol Xl) 50 mg PO DAILY [facility] Last Admin: 09/03/19 12:58 Dose: Not Given Metoprolol Succinate (Toprol Xl) 50 mg PO ONETIME ONE Stop: 09/03/19 18:17 Last Admin: 09/03/19 18:46 Dose: 50 mg - Exam General: Alert, Oriented, Cooperative Lungs: Normal Respiratory Effort, Decreased Breath Sounds (L lower lobe) Cardiovascular: Regular Rate, Regular Rhythm GI/Abdominal Exam: Normal Bowel Sounds, Soft, Non-Tender Extremities: Normal Inspection, Normal Range of Motion, Non-Tender, No Pedal Edema Psy/Mental Status: Alert, Normal Affect, Normal Mood Sepsis Event Note - Evaluation Sepsis Screening Result: No Definite Risk - Focused Exam Vital Signs: Vital Signs Temp Pulse Pulse Resp BP BP BP 09/04/19 15:42 99.3 F 92 18 101/52 L 09/04/19 14:50 100.3 F 09/04/19 11:00 99.3 F 86 18 113/73 09/04/19 08:10 78 117/71 09/04/19 08:08 88 111/71 09/04/19 07:30 97.7 F 72 16 118/78 Pulse Ox 09/04/19 15:42 95 09/04/19 14:50 09/04/19 11:00 96 09/04/19 08:10 09/04/19 08:08 09/04/19 07:30 96 Date Exam was Performed: 09/04/19 Time Exam was Performed: 19:35 - Problem List & Annotations (1) Chest pain SNOMED Code(s): 48635534 Code(s): R07.9 - CHEST PAIN, UNSPECIFIED Status: Acute Current Visit: Yes (2) S/P pericardial window creation SNOMED Code(s): 528124788 Code(s): Z98.890 - OTHER SPECIFIED POSTPROCEDURAL STATES Status: Chronic Current Visit: Yes (3) HTN (hypertension) SNOMED Code(s): 24612752 Code(s): I10 - ESSENTIAL (PRIMARY) HYPERTENSION Status: Chronic Current Visit: Yes Qualifiers: Hypertension type: essential hypertension Qualified Code(s): I10 - Essential (primary) hypertension (4) Hx of myocardial infarction SNOMED Code(s): 937477016 Code(s): I25.2 - OLD MYOCARDIAL INFARCTION Status: Chronic Current Visit : Yes (5) History of CVA with residual deficit SNOMED Code(s): 745685377 Code(s): I69.30 - UNSPECIFIED SEQUELAE OF CEREBRAL INFARCTION Status: Chronic Current Visit: Yes (6) Anxiety SNOMED Code(s): 95162097 Code(s): F41.9 - ANXIETY DISORDER, UNSPECIFIED Status: Chronic Current Visit: Yes (7) CAD (coronary artery disease) SNOMED Code(s): 86238928 Code(s): I25.10 - ATHSCL HEART DISEASE OF [place] CORONARY ARTERY W/O ANG PCTRS Status: Chronic Current Visit: Yes Qualifiers: Coronary Disease-Associated Artery/Lesion type: [place] artery [place] vs. transplanted heart: [place] heart Associated angina: without angina Qualified Code(s): I25.10 - Atherosclerotic heart disease of [place] coronary artery without angina pectoris (8) GERD (gastroesophageal reflux disease) SNOMED Code(s): 961504135 Code(s): K21.9 - GASTRO-ESOPHAGEAL REFLUX DISEASE WITHOUT ESOPHAGITIS Status: Chronic Current Visit: Yes Qualifiers: Esophagitis presence: esophagitis presence not specified Qualified Code(s) : K21.9 - Gastro-esophageal reflux disease without esophagitis (9) Atrial fibrillation with rapid ventricular response SNOMED Code(s): 080415766097815 Code(s): I48.91 - UNSPECIFIED ATRIAL FIBRILLATION Status: Chronic Current Visit: No (10) Pericardial effusion SNOMED Code(s): 166325588 Code(s): I31.3 - PERICARDIAL EFFUSION (NONINFLAMMATORY) Status: Chronic Current Visit: No - Problem List Review Problem List Initiated/Reviewed/Updated: Yes - My Orders Last 24 Hours: My Active Orders 09/03/19 21:00 atorvaSTATin [Lipitor] 20 mg PO BEDTIME 09/04/19 07:30 Pantoprazole [ProTONIX] 40 mg PO ACBREAKFAST - Plan Plan:: This 63 year old male admitted with chest pain 1. Chest pain/Pericarditis: ACS ruled out. LIkely secondary to pleural effusion and recent pericardiocentesis. Troponins negative. Restart ASA TID per Dr Flowers for pericarditis. CRP, ESR improving. CTA of chest obtained, small pericardial effusion noted. Moderate L pleural effusion with compressive atelectasis noted. temp elevation this afternoon 100.3, with some chills. NO repsiratory symptoms. Will monitor overnight, will need to set up outpatient thoracentesis to evaluate pleural fluid etiology. Patient is aware of this and ok with staying overnight as he continues to be fatigued. 2. Afib: Intermittent afib overnight, Metoprolol increased to [address] Flowers. Continue Amiodarone and Eliquis. 3. HTN: BP on the softer side. Holding Lisinopril. Will monitor. 4. CAD: Stable monitoring chest pain as above. VTE prophylaxis: Eliquis Dispo: 1 day.
[2019-09-04] MEDS: atorvaSTATin 20 MG Tab PO SCH (21:10)
[2019-09-05] MEDS: Aspirin 325 MG Tab PO SCH (06:39)
[2019-09-05] MEDS: Pantoprazole 40 MG Tab.CR PO SCH (06:39)
[2019-09-05] MEDS: Albuterol 8 GM Inhaler INH PRN (06:41)
[2019-09-05 06:49] LABS: BLOOD UREA NITROGEN,BUN 10 mg/dL (7.0-18.0); CARBON DIOXIDE,CO2 27.8 mmol/L (21.0-32.0); CHLORIDE,CL 103 mmol/L (98-107); GLUCOSE RANDOM 98 mg/dL (74-106); POTASSIUM,K 3.7 mmol/L (3.5-5.1); SODIUM,NA 139 mmol/L (136-148)
[2019-09-05] MEDS: Metoprolol Succinate 50 MG Tab.ER PO SCH (09:13)
[2019-09-05] MEDS: Amiodarone 200 MG Tab PO SCH (09:14)
[2019-09-05] MEDS: Colchicine 0.6 MG Tab PO SCH (09:14)
[2019-09-05] MEDS: Fluticasone/Salmeterol 250-50 MCG Inhalation Powder 14/Diskus INH SCH (09:15)
--- NOTE | 2019-09-05 10:00 | PCM.DCSUM1 ---
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 he reports last evening he had some L shoulder and neck pain, which was similar to when he had the pericardial effusion. This improved, but then he woke up this morning with midsternal pain that radiated to the R chest and wrapped around. He reports the inability to take a deep breath at that time, but by the time he got to the ED it had nearly passed. He denies diaphoresis with that. No other pain, no pain to L shoulder or neck. He reports he followed up with Cardiology and had sutures removed from drain sites. He reports they seemed happy with everything. He reported he slept most of the drive there and back. He felt dizzy and lightheaded when he was at the appointment, but no chest pain during then. He was discharged on Eliquis for afib, along with Plavix, Colchicine, Amiodarone 200 mg daily. He reports mild diarrhea for the last couple days and a "sour stomach". He hasn't been eating for drinking much either. He denies drainage or weeping from chest incision. No abdominal pain. Denies black or bloody BMs. No focal neurologic concerns. In the ED, mild leukocytosis noted at 12,500, platelets 422, Na 138, K+ 3.7, Troponin negative. Initial EKG Afib RVR, without treatment repeat EKG SR. He denied chest pain on arrival. He will be admitted for chest pain rule out. Diagnosis: Stroke: No - Discharge Data Discharge Date: 09/05/19 Discharge Disposition: Home, Self-Care 01 Condition: Stable - Referral to Home Health Primary Care Physician: PCP None - Discharge Diagnosis/Problem(s) (1) Chest pain SNOMED Code(s): 85843020 ICD Code: R07.9 - CHEST PAIN, UNSPECIFIED Status: Acute (2) S/P pericardial window creation SNOMED Code(s): 943455694 ICD Code: Z98.890 - OTHER SPECIFIED POSTPROCEDURAL STATES Status: Chronic (3) HTN (hypertension) SNOMED Code(s): 08509479 ICD Code: I10 - ESSENTIAL (PRIMARY) HYPERTENSION Status: Chronic Qualifiers: Hypertension type: essential hypertension Qualified Code(s): I10 - Essential (primary) hypertension (4) Hx of myocardial infarction SNOMED Code(s): 279992106 ICD Code: I25.2 - OLD MYOCARDIAL INFARCTION Status: Chronic (5) History of CVA with residual deficit SNOMED Code(s): 530256849 ICD Code: I69.30 - UNSPECIFIED SEQUELAE OF CEREBRAL INFARCTION Status: Chronic (6) Anxiety SNOMED Code(s): 36269853 ICD Code: F41.9 - ANXIETY DISORDER, UNSPECIFIED Status: Chronic (7) CAD (coronary artery disease) SNOMED Code(s): 66697520 ICD Code: I25.10 - ATHSCL HEART DISEASE OF [place] CORONARY ARTERY W/O ANG PCTRS Status: Chronic Qualifiers: Coronary Disease-Associated Artery/Lesion type: [place] artery [place] vs. transplanted heart: [place] heart Associated angina: without angina Qualified Code(s): I25.10 - Atherosclerotic heart disease of [place] coronary artery without angina pectoris (8) GERD (gastroesophageal reflux disease) SNOMED Code(s): 477513945 ICD Code: K21.9 - GASTRO-ESOPHAGEAL REFLUX DISEASE WITHOUT ESOPHAGITIS Status: Chronic Qualifiers: Esophagitis presence: esophagitis presence not specified Qualified Code(s) : K21.9 - Gastro-esophageal reflux disease without esophagitis (9) Atrial fibrillation with rapid ventricular response SNOMED Code(s): 395270115261612 ICD Code: I48.91 - UNSPECIFIED ATRIAL FIBRILLATION Status: Chronic (10) Pericardial effusion SNOMED Code(s): 242716212 ICD Code: I31.3 - PERICARDIAL EFFUSION (NONINFLAMMATORY) Status: Chronic (11) Pleural effusion SNOMED Code(s): 29647868 ICD Code: J90 - PLEURAL EFFUSION, NOT ELSEWHERE CLASSIFIED Status: Acute - Patient Summary/Data Consults: Consultations 09/03/19 13:29 Consult to Physician [CONS] Routine - Patient Instructions Diet: Heart Healthy Diet Activity: No Strenuous Activities Showering/Bathing: May Shower Notify Provider of: Fever, Increased Pain, Swelling and Redness, Drainage, Nausea and/or Vomiting - Discharge Plan *PRESCRIPTION DRUG MONITORING PROGRAM REVIEWED*: Not Applicable *COPY OF PRESCRIPTION DRUG MONITORING REPORT IN PATIENT LAURA: Not Applicable Prescriptions/Med Rec: Pantoprazole [ProTONIX] 40 mg PO ACBREAKFAST #30 tab.cr Home Medications: Home Meds Albuterol [Ventolin HFA] 2 puff INH ASDIRECTED PRN 08/04/19 [History] Fluticasone/Salmeterol [Advair 250-50] 1 puff IH DAILY 08/04/19 [History] atorvaSTATin Calcium [Atorvastatin Calcium] 20 mg PO BEDTIME 08/04/19 [History] Amiodarone [Cordarone] 200 mg PO BID 09/03/19 [History] Colchicine 0.6 mg PO BID 09/03/19 [History] Aspirin 650 mg PO TID tablet 09/04/19 [Rx] Metoprolol Succinate [Toprol XL 50mg] 100 mg PO DAILY #0 09/04/19 [Rx] Pantoprazole [ProTONIX] 40 mg PO ACBREAKFAST #30 tab.cr 09/04/19 [Rx] Apixaban [Eliquis] 5 mg PO BID #0 09/05/19 [Rx] Oxygen Therapy Mode: Room Air Patient Handouts: Thoracentesis, Pharmacologic Stress Echocardiogram, Easy-to- Read, Nonspecific Chest Pain, [id number], Pantoprazole tablets Referrals: [facility] [Outside] Agustin Begum MD [Physician] - 09/16/19 9:00 am (in 2 weeks.) Spencer Mott MD [Physician] - 09/09/19 3:30 pm - Discharge Summary/Plan Comment DC Time >30 min.: No Discharge Summary/Plan Comment: Admitting Diagnoses: Chest pain Pleural Effusion Pericarditis Discharge Diagnoses: Chest pain Pleural Effusion Pericarditis Other pmh: Afib/flutter Recent pericardiocentesis CAD GERD Hx IN Hx CVA with R central vision loss Anticoagulation Annette was admitted for chest pain, which was R sided and resolved by the time he arrived to the ED. He was recently seen by Cardiology in [place] for follow up s/p pericardiocentesis for pericardial effusion. he reports he has been more tired recently. Mild L shoulder pain, which was present with pericarditis previously as well. Troponins were trended and negative. No ACS. He was seen by Dr Begum Cardiology, Metoprolol increased to 100 XL daily and Amiodarone continued, Lisinopril 5 mg discontinued due to softer BPs. He was also restarted on ASA 650 mg TID for pericarditis along with continuing Colchicine. He was to discontinue Plavix as well per Dr Luis. He was noted to have moderate L pleural effusion, Dr Begum recommended diagnostic thoracentesis to evaluate pleural fluid. This is unable to be done in our facility. Annette is stable, no signs of infection or respiratory compromise. We set up out patient thoracentesis in [place]. I spoke with IR regarding history and anticoagulation. Dr Verma recommended hold Eliquis for 3 days and then he'd be very willing to do the thoracentesis. I have written fluid analysis orders. Annette was counseled on holding Eliquis until after thoracentesis. This is scheduled on SundaySep 08. He verbalized understanding. He is also aware of stopping Lisinopril and Plavix. He was started on Protonix as well to help with GERD symptoms, especially while he is taking the ASA. he is to return to ED or clinic if concerns should arise. I will contact Dr James on Sunday regarding follow up of thoracentesis and fluid analysis. - Patient Data Vitals - Most Recent: Last Vital Signs Temp 97.5 F 09/05/19 07:41 Pulse 80 09/05/19 09:13 Resp 18 09/05/19 07:41 BP 106/65 09/05/19 09:13 Pulse Ox 97 09/05/19 07:41 Weight - Most Recent: 96 kg I&O - Last 24 hours: Intake & Output 09/04/19 09/05/19 09/05/19 22:59 06:59 14:59 Intake Total 930 720 Output Total 830 750 Balance 100 -30 Lab Results - Last 24 hrs: Laboratory Results - last 24 hr 09/05/19 09/05/19 Range/Units 06:20 06:20 WBC 9.47 (4.0-11.0) K/uL RBC 4.23 L (4.50-5.90) M/uL Hgb 12.1 L (13.0-17.0) g/dL Hct 36.8 L (38.0-50.0) % MCV 87.0 (80.0-98.0) fL MCH 28.6 (27.0-32.0) pg MCHC 32.9 (31.0-37.0) g/dL RDW Std Deviation 44.0 (28.0-62.0) fl RDW Coeff of Doming[place] 14 (11.0-15.0) % Plt Count 314 (150-400) K/uL MPV 11.80 (7.40-12.00) fL Neut % (Auto) 64.9 (48.0-80.0) % Lymph % (Auto) 18.4 (16.0-40.0) % [place] % (Auto) 11.4 (0.0-15.0) % Eos % (Auto) 5.1 (0.0-7.0) % Baso % (Auto) 0.2 (0.0-1.5) % Neut # (Auto) 6.2 H (1.4-5.7) K/uL Lymph # (Auto) 1.7 (0.6-2.4) K/uL [place] # (Auto) 1.1 H (0.0-0.8) K/uL Eos # (Auto) 0.5 (0.0-0.7) K/uL Baso # (Auto) 0.0 (0.0-0.1) K/uL Nucleated RBC % 0.0 /100WBC Nucleated RBCs # 0 K/uL Sodium 139 (136-148) mmol/L Potassium 3.7 (3.5-5.1) mmol/L Chloride 103 (98-107) mmol/L Carbon Dioxide 27.8 (21.0-32.0) mmol/L BUN 10 (7.0-18.0) mg/dL Creatinine 0.9 (0.8-1.3) mg/dL Est Cr Clr Drug Dosing 74.83 mL/min Estimated GFR (MDRD) > 60.0 ml/min Glucose 98 (74-106) mg/dL Calcium 8.4 L (8.5-10.1) mg/dL Med Orders - Current: Current Medications Acetaminophen (Tylenol) 650 mg PO Q4H PRN PRN Reason: Pain (Mild 1-3)/fever Albuterol (Ventolin Hfa) 0 gm INH Q4HRRT PRN PRN Reason: Wheezing Last Admin: 09/05/19 06:41 Dose: 2 puff Albuterol/Ipratropium (Duoneb 3.0-0.5 Mg/3 Ml) 3 ml NEB Q4HRRT PRN PRN Reason: Shortness Of Breath/wheezing Amiodarone HCl (Cordarone) 200 mg PO BID [facility] Last Admin: 09/05/19 09:14 Dose: 200 mg Aspirin (Aspirin) 650 mg PO TID [facility] Last Admin: 09/05/19 06:39 Dose: 650 mg Atorvastatin Calcium (Lipitor) 20 mg PO BEDTIME [facility] Last Admin: 09/04/19 21:10 Dose: 20 mg Colchicine (Colcrys) 0.6 mg PO BID [facility] Last Admin: 09/05/19 09:14 Dose: 0.6 mg Metoprolol Succinate (Toprol Xl) 100 mg PO DAILY [facility] Last Admin: 09/05/19 09:13 Dose: 100 mg Ondansetron HCl (Zofran) 4 mg IVPUSH Q4H PRN PRN Reason: Nausea Pantoprazole Sodium (Protonix) 40 mg PO ACBREAKFAST [facility] Last Admin: 09/05/19 06:39 Dose: 40 mg Fluticasone/Salmeterol (Advair Diskus 250-50) 1 puff INH DAILY [facility] Last Admin: 09/05/19 09:15 Dose: 1 puff Sodium Chloride (Saline Flush) 10 ml FLUSH ASDIRECTED PRN PRN Reason: Keep Vein Open Sodium Chloride (Saline Flush) 2.5 ml FLUSH ASDIRECTED PRN PRN Reason: Keep Vein Open Discontinued Medications Apixaban (Eliquis) 5 mg PO BID [facility] Last Admin: 09/04/19 21:10 Dose: 5 mg Clopidogrel Bisulfate (Plavix) 75 mg PO DAILY [facility] Last Admin: 09/03/19 12:15 Dose: 75 mg Diltiazem HCl (Diltiazem) 10 mg IVPUSH ONETIME STA Stop: 09/03/19 17:32 Last Admin: 09/03/19 18:31 Dose: Not Given Pantoprazole Sodium 40 mg/ (Sodium Chloride) 10 mls @ 300 mls/hr IV NOW STA Stop: 09/03/19 11:53 Last Admin: 09/03/19 12:14 Dose: 300 mls/hr Iopamidol (Isovue Multipack-370 (76%)) 100 ml IVPUSH ONETIME ONE Stop: 09/04/19 11:35 Last Admin: 09/04/19 11:35 Dose: 100 ml Lisinopril (Prinivil) 5 mg PO DAILY [facility] Last Admin: 09/03/19 12:58 Dose: Not Given Metoprolol Succinate (Toprol Xl) 50 mg PO DAILY [facility] Last Admin: 09/03/19 12:58 Dose: Not Given Metoprolol Succinate (Toprol Xl) 50 mg PO ONETIME ONE Stop: 09/03/19 18:17 Last Admin: 09/03/19 18:46 Dose: 50 mg
--- NOTE | 2019-09-05 16:47 | ECHO ---
The echocardiogram report can be seen in this patient's EMR (Electronic Medical Record) in the REPORTS section. The echocardiogram report has also been scanned into PACS and can be seen there as well. SHERRY
== END 2019-09-05 11:50 | disposition home or self-care (01) ==
LOC: MW.ED 07:08 → MW.MS 09:07
PROVIDERS: ADMIT Internal Medicine; ATTEND Internal Medicine
DX: R07.89 Other chest pain (principal); I48.91 Unspecified atrial fibrillation; I10 Essential (primary) hypertension; I25.10 Atherosclerotic heart disease of native coronary artery without angina pectoris; I25.2 Old myocardial infarction; F41.9 Anxiety disorder, unspecified; K21.9 Gastro-esophageal reflux disease without esophagitis; I31.3 Pericardial effusion (noninflammatory); I69.998 Other sequelae following unspecified cerebrovascular disease; H54.7 Unspecified visual loss; E78.00 Pure hypercholesterolemia, unspecified; J45.909 Unspecified asthma, uncomplicated; E66.9 Obesity, unspecified; Z98.890 Other specified postprocedural states; Z88.0 Allergy status to penicillin; Z79.02 Long term (current) use of antithrombotics/antiplatelets; Z79.899 Other long term (current) drug therapy; Z79.01 Long term (current) use of anticoagulants; Z68.34 Body mass index [BMI] 34.0-34.9, adult
CPT/HCPCS: 36415; 71045; 71275; 80048; 80053; 81001; 83735; 84484; 85025; 85610; 85652; 86140; 93005; 93306; 94640; 94664; 96374; 99285; A9270; C9113; G0378; J7050; Q9967; 99283; J3490

== ENCOUNTER 2019-09-09 07:27 | Emergency (ER) | payer OTHER ==
[2019-09-09] MEDS ORDERED: Morphine 2 MG/ML Syringe IVPUSH ONE (07:33)
[2019-09-09] MEDS ORDERED: Morphine 2 MG/ML Syringe ONE (07:34)
--- NOTE | 2019-09-09 07:34 | EDM.PDOC ---
ED HPI GENERAL MEDICAL PROBLEM - General Stated Complaint: CHEST PAIN, PRIOR AFIB Time Seen by Provider: 09/09/19 07:33 Source of Information: Reports: Patient - History of Present Illness INITIAL COMMENTS - FREE TEXT/NARRATIVE: HISTORY AND PHYSICAL: History of present illness: [patient presents via private vehicle patient hs had significant cardiac history over last night with pericardial effusion, a.fib, pericardial window leading to pleural effusion last drained in [place] yesterday c/o left chest wall pain 5/10 resolved with morphine bp improved to normal patient currently comfortible, breathing easy in NAD ] Review of systems: As per history of present illness and below otherwise all systems reviewed and negative. Past medical history: As per history of present illness and as reviewed below otherwise noncontributory. Surgical history: As per history of present illness and as reviewed below otherwise noncontributory. Social history: No reported history of drug or alcohol abuse. Family history: As per history of present illness and as reviewed below otherwise noncontributory. Physical exam: HEENT: Atraumatic, normocephalic, pupils reactive, negative for conjunctival pallor or scleral icterus, mucous membranes moist, throat clear, neck supple, nontender, trachea midline. Lungs: Clear to auscultation, breath sounds equal bilaterally, chest nontender. Heart: S1S2, regular, negative for clicks, rubs, or JVD. Abdomen: Soft, nondistended, nontender. Negative for masses or hepatosplenomegaly. Negative for costovertebral tenderness. Pelvis: Stable nontender. Genitourinary: Deferred. Rectal: Deferred. Extremities: Atraumatic, negative for cords or calf pain. Neurovascular unremarkable. Neuro: Awake, alert, oriented. Cranial nerves II through XII unremarkable. Cerebellum unremarkable. Motor and sensory unremarkable throughout. Exam nonfocal. Diagnostics: [cbc, cmp, ua, trop inr chest ekg ] Therapeutics: [ns ms patient offered norco he refused as he has oxycodone at home patient offered observation admission he refused and preferred to follow with pcp as scheduled this afternoon ] Impression: [chest wall pain chronic history baseline ] Definitive disposition and diagnosis as appropriate pending reevaluation and review of above. left rib/back Pain Score (Numeric/FACES): 8 - Related Data Allergies Allergy/AdvReac Type Severity Reaction Status Date / Time Penicillins Allergy Airway Verified 09/09/19 07:53 Tightness Home Meds: Home Meds Albuterol [Ventolin HFA] 2 puff INH ASDIRECTED PRN 08/04/19 [History] Fluticasone/Salmeterol [Advair 250-50] 1 puff IH DAILY 08/04/19 [History] atorvaSTATin Calcium [Atorvastatin Calcium] 20 mg PO BEDTIME 08/04/19 [History] Amiodarone [Cordarone] 200 mg PO BID 09/03/19 [History] Colchicine 0.6 mg PO BID 09/03/19 [History] Aspirin 650 mg PO TID tablet 09/04/19 [Rx] Metoprolol Succinate [Toprol XL 50mg] 100 mg PO DAILY #0 09/04/19 [Rx] Pantoprazole [ProTONIX] 40 mg PO ACBREAKFAST #30 tab.cr 09/04/19 [Rx] Apixaban [Eliquis] 5 mg PO BID #0 09/05/19 [Rx] Past Medical History HEENT History: Reports: Impaired Vision Other HEENT History: 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 Cardiovascular History: Reports: Afib, CAD, High Cholesterol, Hypertension, [place], Stents, Other (See Below) (Pericardial effusion with pericardial window, 07/2019 ) Other Cardiovascular History: [place] 2013, 2 stents placed per pt Respiratory History: Reports: Asthma, Sleep Apnea Gastrointestinal History: Reports: None Genitourinary History: Reports: Renal Calculus Musculoskeletal History: Reports: Fracture Neurological History: Reports: 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) Other Neuro History: 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, optic nerve stroke Psychiatric History: Reports: Anxiety, Depression Endocrine/Metabolic History: Reports: Obesity/BMI 30+ - Infectious Disease History Infectious Disease History: Reports: None - Past Surgical History HEENT Surgical History: Reports: Cataract Surgery Cardiovascular Surgical History: Reports: Coronary Artery Stent, Other (See Below) Other Cardiovascular Surgeries/Procedures: Pericardial Window July 2019 Respiratory Surgical History: Reports: None GI Surgical History: Reports: Appendectomy Male Surgical History: Reports: None Endocrine Surgical History: Reports: None Neurological Surgical History: Reports: None Musculoskeletal Surgical History: Reports: Knee Replacement Other Musculoskeletal Surgeries/Procedures:: Left knee Social & Family History - Family History Family Medical History: Noncontributory - Caffeine Use Caffeine Use: Reports: Coffee, Tea - Living Situation & Occupation Living situation: Reports: ED ROS GENERAL - Review of Systems Review Of Systems: See Below ED EXAM, GENERAL - Physical Exam Exam: See Below Course - Vital Signs Last Recorded V/S: Last Vital Signs Temp 98.3 F 09/09/19 07:30 Pulse 84 09/09/19 07:30 Resp 18 09/09/19 07:30 BP 154/127 H 09/09/19 07:30 Pulse Ox 95 09/09/19 07:30 - Orders/Labs/Meds Orders: Active Orders 24 hr Category Date Time Status EKG Documentation Completion [RC] STAT Care 09/09/19 07:31 Active Sodium Chloride 0.9% [Normal Saline] 1,000 ml Med 09/09/19 07:45 Active IV STAT Medication Orders Sodium Chloride (Normal Saline) 1,000 mls @ 125 mls/hr IV STAT GERALDINE Last Admin: 09/09/19 07:39 Dose: 125 mls/hr Labs: Laboratory Tests 09/09/19 09/09/19 09/09/19 Range/Units 07:35 07:35 07:35 WBC 8.72 (4.0-11.0) K/uL RBC 4.29 L (4.50-5.90) M/uL Hgb 12.6 L (13.0-17.0) g/dL Hct 37.7 L (38.0-50.0) % MCV 87.9 (80.0-98.0) fL MCH 29.4 (27.0-32.0) pg MCHC 33.4 (31.0-37.0) g/dL RDW Std Deviation 44.9 (28.0-62.0) fl RDW Coeff of Dominga 14 (11.0-15.0) % Plt Count 352 (150-400) K/uL MPV 12.00 (7.40-12.00) fL Neut % (Auto) 53.3 (48.0-80.0) % Lymph % (Auto) 29.8 (16.0-40.0) % Callaway % (Auto) 8.3 (0.0-15.0) % Eos % (Auto) 8.3 H (0.0-7.0) % Baso % (Auto) 0.3 (0.0-1.5) % Neut # (Auto) 4.7 (1.4-5.7) K/uL Lymph # (Auto) 2.6 H (0.6-2.4) K/uL Callaway # (Auto) 0.7 (0.0-0.8) K/uL Eos # (Auto) 0.7 (0.0-0.7) K/uL Baso # (Auto) 0.0 (0.0-0.1) K/uL Nucleated RBC % 0.0 /100WBC Nucleated RBCs # 0 K/uL INR 1.10 Sodium 139 (136-148) mmol/L Potassium 3.4 L (3.5-5.1) mmol/L Chloride 100 (98-107) mmol/L Carbon Dioxide 29.2 (21.0-32.0) mmol/L BUN 11 (7.0-18.0) mg/dL Creatinine 1.0 (0.8-1.3) mg/dL Est Cr Clr Drug Dosing 79.48 mL/min Estimated GFR (MDRD) > 60.0 ml/min Glucose 101 (74-106) mg/dL Calcium 8.9 (8.5-10.1) mg/dL Total Bilirubin 0.5 (0.2-1.0) mg/dL AST 51 H (15-37) IU/L ALT 74 H (14-63) IU/L Alkaline Phosphatase 187 H (46-116) U/L Troponin I < 0.050 (0.000-0.056) ng/mL Total Protein 7.5 (6.4-8.2) g/dL Albumin 2.7 L (3.4-5.0) g/dL Globulin 4.8 H (2.6-4.0) g/dL Albumin/Globulin Ratio 0.6 L (0.9-1.6) Meds: Medications Generic Name Dose Route Start Last Admin Trade Name Freq PRN Reason Stop Dose Admin Sodium Chloride 1,000 mls @ 125 mls/hr 09/09/19 07:45 09/09/19 07:39 Normal Saline IV 125 mls/hr STAT GERALDINE Administration Discontinued Medications Generic Name Dose Route Start Last Admin Trade Name Freq PRN Reason Stop Dose Admin Morphine Sulfate 2 mg 09/09/19 07:33 09/09/19 07:38 Morphine IVPUSH 09/09/19 07:34 2 mg ONETIME ONE Administration Morphine Sulfate Confirm 09/09/19 07:34 09/09/19 07:53 Morphine Administered 09/09/19 07:35 Not Given Dose 2 mg .ROUTE .STK-MED ONE Departure - Departure Time of Disposition: 08:41 Disposition: Home, Self-Care 01 Condition: Good Clinical Impression: Chest wall pain - Discharge Information Referrals: PCP,None [Primary Care Provider] - Additional Instructions: The following information is given to patients seen in the emergency department who are being discharged to home. This information is to outline your options for follow-up care. We provide all patients seen in our emergency department with a follow-up referral. The need for follow-up, as well as the timing and circumstances, are variable depending upon the specifics of your emergency department visit. If you don't have a primary care physician on staff, we will provide you with a referral. We always advise you to contact your personal physician following an emergency department visit to inform them of the circumstance of the visit and for follow-up with them and/or the need for any referrals to a consulting specialist. The emergency department will also refer you to a specialist when appropriate. This referral assures that you have the opportunity for follow-up care with a specialist. All of these measure are taken in an effort to provide you with optimal care, which includes your follow-up. Under all circumstances we always encourage you to contact your private physician who remains a resource for coordinating your care. When calling for follow-up care, please make the office aware that this follow-up is from your recent emergency room visit. If for any reason you are refused follow-up, please contact the [facility] emergency department at and asked to speak to the emergency department charge nurse. Sepsis Event Note - Focused Exam Vital Signs: Vital Signs Temp Pulse Resp BP Pulse Ox 09/09/19 07:30 98.3 F 84 18 154/127 H 95 Date Exam was Performed: 09/09/19 Time Exam was Performed: 08:40 - My Orders Last 24 Hours: My Active Orders 09/09/19 07:31 EKG Documentation Completion [RC] STAT 09/09/19 07:45 Sodium Chloride 0.9% [Normal Saline] 1,000 ml IV STAT - Assessment/Plan Last 24 Hours: My Active Orders 09/09/19 07:31 EKG Documentation Completion [RC] STAT 09/09/19 07:45 Sodium Chloride 0.9% [Normal Saline] 1,000 ml IV STAT
[2019-09-09] MEDS ORDERED: Sodium Chloride 0.9% 1,000 ML IV SCH (07:45)
--- NOTE | 2019-09-09 08:13 | CR ---
CHEST 1 VIEW AP INDICATION: Chest pain. Short of breath. COMPARISON: 09/03/2019. IMPRESSION: Stable heart size and vascular pattern.The heart is mildly enlarged. The pulmonary vessels appear normal. Lungs are clear of new focal opacities. Stable elevation of the left diaphragm. No pneumothorax. No overall change. Dictated by Jayson Su MD @ Sep 09 2019 8:11AM Signed by Dr. Jayson Su @ Sep 09 2019 8:12AM
[2019-09-09 08:20] LABS: BLOOD UREA NITROGEN,BUN 11 mg/dL (7.0-18.0); CARBON DIOXIDE,CO2 29.2 mmol/L (21.0-32.0); CHLORIDE,CL 100 mmol/L (98-107); GLUCOSE RANDOM 101 mg/dL (74-106); POTASSIUM,K 3.4 mmol/L (3.5-5.1); SODIUM,NA 139 mmol/L (136-148)
== END 2019-09-09 09:03 | disposition home or self-care (01) ==
LOC: MW.ED 07:27
DX: R07.89 Other chest pain (principal); I48.91 Unspecified atrial fibrillation; I10 Essential (primary) hypertension; I25.2 Old myocardial infarction; J45.909 Unspecified asthma, uncomplicated; E66.9 Obesity, unspecified; Z68.25 Body mass index [BMI] 25.0-25.9, adult; Z88.0 Allergy status to penicillin; Z79.899 Other long term (current) drug therapy; Z79.82 Long term (current) use of aspirin
CPT/HCPCS: 36415; 71045; 80053; 84484; 85025; 85610; 93005; 96361; 96374; 99285; J2270; J7030

== ENCOUNTER 2020-05-24 09:00 | Day surgery (SDC) | payer OTHER ==
[2020-05-24] MEDS ORDERED: Lidocaine 1% 20 ML MDV ONE (09:24)
[2020-05-24] MEDS ORDERED: Bupivacaine 0.5% 30 ML SDV ONE (09:24)
[2020-05-24] MEDS ORDERED: Bacitracin Oint 28.35 GM Tube ONE (09:25)
--- NOTE | 2020-05-24 09:36 | PCM.PREANE ---
Preanesthetic Assessment - Anesthesia/Transfusion/Family Hx Anesthesia History: Prior Anesthesia Without Reaction Family History of Anesthesia Reaction: No Transfusion History: No Prior Transfusion(s) - Review of Systems General: No Symptoms Pulmonary: No Symptoms Cardiovascular: No Symptoms Gastrointestinal: No Symptoms Neurological: No Symptoms Other: Reports: None - Physical Assessment NPO Status Date: 05/23/20 Height: 5 ft 6 in Weight: 100.698 kg ASA Class: 3 Airway Class: Mallampati = 2 Dentition: Reports: Normal Dentition ROM/Head Extension: Full Lungs: Clear to Auscultation, Normal Respiratory Effort Cardiovascular: Regular Rate, Regular Rhythm - Allergies Allergies/Adverse Reactions: Allergies Allergy/AdvReac Type Severity Reaction Status Date / Time Penicillins Allergy Cannot Verified 05/18/20 14:06 Remember - Blood Blood Available: No - Anesthesia Plan Pre-Op Medication Ordered: None - Acknowledgements Anesthesia Type Planned: General Anesthesia Pt an Appropriate Candidate for the Planned Anesthesia: Yes Alternatives and Risks of Anesthesia Discussed w Pt/Guardian: Yes Pt/Guardian Understands and Agrees with Anesthesia Plan: Yes Additional Comments: PMH: cad- s/p AMI 5 yr ago with placement of 2 stents, off plavix now, still on asa, CVA- about 5 years ago, recent pericardial effusion rxed with pericardial window in the last 3 months, asthma- well controlled, last use of oral steroids was remote, htn, vlad-uses cpap, PLAN: ga/lma PreAnesthesia Questionnaire HEENT History: Reports: Allergic Rhinitis, Cataract Other HEENT History: 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 Cardiovascular History: Reports: CAD, High Cholesterol, [place], Stents Other Cardiovascular History: hx of Pericarditis Respiratory History: Reports: Asthma, Sleep Apnea Other Respiratory History: uses CPAP every night Gastrointestinal History: Reports: GERD Genitourinary History: Reports: Renal Calculus Other Genitourinary History: hx of passing kidney stone Musculoskeletal History: Reports: Arthritis, Fracture Other Musculoskeletal History: hx of fx arm Neurological History: Reports: CVA Other Neuro History: 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, optic nerve stroke Psychiatric History: Reports: Anxiety, Depression Endocrine/Metabolic History: Reports: Obesity/BMI 30+ Dermatologic History: Reports: Eczema Other Dermatologic History: hx of eczema many years ago - Infectious Disease History Infectious Disease History: Reports: None - Past Surgical History Head Surgeries/Procedures: Reports: None HEENT Surgical History: Reports: Cataract Surgery Cardiovascular Surgical History: Reports: Coronary Artery Stent Other Cardiovascular Surgeries/Procedures: hx of angioplasty with stents x2 5 years ago (has chest pain at the time- unsure if he had an OK), no chest pain or SOB since, hx of Pericarditis with Pericardial Window Respiratory Surgical History: Reports: None GI Surgical History: Reports: Appendectomy Male Surgical History: Reports: None Endocrine Surgical History: Reports: None Neurological Surgical History: Reports: None Musculoskeletal Surgical History: Reports: Knee Replacement Other Musculoskeletal Surgeries/Procedures:: Left knee - SUBSTANCE USE Smoking Status *Q: Never Smoker Recreational Drug Use History: No - HOME MEDS Home Medications: Home Meds Albuterol [Ventolin HFA] 2 puff INH Q6H PRN 08/04/19 [History] Fluticasone/Salmeterol [Advair 250-50] 1 puff IH BID 08/04/19 [History] atorvaSTATin Calcium [Atorvastatin Calcium] 20 mg PO BEDTIME 08/04/19 [History] Aspirin [Adult Low Dose Aspirin EC] 81 mg PO DAILY 05/05/20 [History] Metoprolol Succinate [Toprol XL 50mg] 50 mg PO QAM 05/05/20 [History] Nitroglycerin 0.4 mg SL Q5M PRN MDD 3 tabs 05/05/20 [History] Sertraline HCl 50 mg PO DAILY 05/05/20 [History] lisinopriL [Lisinopril] 5 mg PO DAILY 05/05/20 [History] - CURRENT (IN HOUSE) MEDS Current Meds: Current Medications Lactated Ringer's (Ringers, Lactated) 1,000 mls @ 125 mls/hr IV ASDIRECTED GERALDINE Discontinued Medications Bacitracin (Bacitracin Oint) Confirm Administered Dose 28.35 gm .ROUTE .STK-MED ONE Stop: 05/24/20 09:26 Bupivacaine HCl (Marcaine 0.5%) Confirm Administered Dose 30 ml .ROUTE .STK-MED ONE Stop: 05/24/20 09:25 Lidocaine HCl (Xylocaine 1%) Confirm Administered Dose 20 ml .ROUTE .STK-MED ONE Stop: 05/24/20 09:25
[2020-05-24] MEDS ORDERED: Midazolam 1 MG/ML 2 ML SDV ONE (09:37)
[2020-05-24] MEDS ORDERED: fentaNYL 100 MCG/2 ML SDV ONE (09:37)
[2020-05-24] MEDS ORDERED: Propofol 200 MG/20 ML SDV ONE (09:37)
[2020-05-24] MEDS ORDERED: Ondansetron 4 MG/2 ML SDV ONE (09:39)
[2020-05-24] MEDS ORDERED: Glycopyrrolate 0.2 MG/ML SDV ONE (09:39)
[2020-05-24] MEDS ORDERED: Ketorolac 30 MG/ML SDV ONE (09:39)
[2020-05-24] MEDS: Lactated Ringers 1,000 ML IV SCH ×2 (10:42→10:45)
[2020-05-24] MEDS ORDERED: Acetaminophen/HYDROcodone 325-5 MG Tab PO PRN (10:44)
[2020-05-24] MEDS ORDERED: Lactated Ringers 1,000 ML IV SCH (10:45)
--- NOTE | 2020-05-24 10:49 | PCM.OPNOTE ---
- General Post-Op/Procedure Note Date of Surgery/Procedure: 05/24/20 Operative Procedure(s): Excision left breast mass Pre Op Diagnosis: Palpable left breast mass Post-Op Diagnosis: Same Anesthesia Technique: General LMA (ASA III) Primary Surgeon: El Mazariegos Fluid Replacement, Intraop: 500 EBL in mLs: 5 Condition: Good Free Text/Narrative:: DICTATION [id number] CPT CODE 44100
--- NOTE | 2020-05-24 12:17 | PCM.POSTAN ---
POST ANESTHESIA ASSESSMENT - MENTAL STATUS Mental Status: Alert, Oriented - VITAL SIGNS Vital Signs: Last Vital Signs Temp 97.2 F 05/24/20 10:36 Pulse 75 05/24/20 10:58 Resp 18 05/24/20 10:58 BP 116/77 05/24/20 10:58 Pulse Ox 95 05/24/20 10:58 - RESPIRATORY Respiratory Status: Respiratory Rate WNL, Airway Patent, O2 Saturation Stable - CARDIOVASCULAR CV Status: Pulse Rate WNL, Blood Pressure Stable - GASTROINTESTINAL GI Status: No Symptoms - POST OP HYDRATION Hydration Status: Adequate & Stable
--- NOTE | 2020-05-24 12:18 | PCM48HPAN ---
Post Anesthesia Note - EVALUATION WITHIN 48HRS OF ANESTHETIC Vital Signs in Normal Range: Yes Patient Participated in Evaluation: Yes Respiratory Function Stable: Yes Airway Patent: Yes Cardiovascular Function Stable: Yes Hydration Status Stable: Yes Pain Control Satisfactory: Yes Nausea and Vomiting Control Satisfactory: Yes Mental Status Recovered: Yes Vital Signs: Last Vital Signs Temp 97.2 F 05/24/20 10:36 Pulse 75 05/24/20 10:58 Resp 18 05/24/20 10:58 BP 116/77 05/24/20 10:58 Pulse Ox 95 05/24/20 10:58
--- NOTE | 2020-05-24 16:23 | OR ---
SURGEON: El Mazariegos M.D. DATE OF PROCEDURE: 05/24/2020 OPERATION PERFORMED: Excision of left breast mass. PRIMARY SURGEON: El Mazariegos MD ANESTHESIA: General LMA ASA CLASSIFICATION: III. PREOPERATIVE DIAGNOSIS: Palpable left breast mass. POSTOPERATIVE DIAGNOSIS: Palpable left breast mass. ESTIMATED BLOOD LOSS: 5 mL. INTRAOPERATIVE FLUID REPLACEMENT: 500 mL of crystalloid. DESCRIPTION OF PROCEDURE: The patient was taken to the operating room and placed on the operating table in the supine position. Time-out was called for appropriate identification of the patient and procedure. Thigh-high TEDs and sequential compression boots were placed. The surgical site had been marked prior to the patient entering the operating room. Following satisfactory attainment of general anesthesia with placement of an LMA, the left breast was prepped with Betadine solution and sterile drapes were applied. Skin incision was marked out at the nipple areola interface and infiltrated with 10 mL of 0.5% Marcaine solution. Skin incision was made and deepened through the subcutaneous tissue obtaining hemostasis with the use of electrocautery. The palpable mass was excised using electrocautery. Bleeding sites were electrocoagulated. The breast was irrigated with sterile saline. The subcutaneous tissue was reapproximated with running 3-0 Vicryl. Skin edges were reapproximated with subcuticular 4-0 Monocryl, reinforced with half-inch Steri-Strips. The wound was then dressed with fluffs and Mefix tape. Sponge, needle, and instrument counts were all correct. The patient tolerated the procedure well. Following emergence from anesthesia and extubation, he was taken to recovery room in stable condition. JANET / CT /[id number]
== END 2020-05-24 12:40 | disposition home or self-care (01) ==
LOC: MW.SDS 09:00
PROVIDERS: ATTEND Surgery
DX: N62 Hypertrophy of breast (principal); K21.9 Gastro-esophageal reflux disease without esophagitis; J45.909 Unspecified asthma, uncomplicated; F41.9 Anxiety disorder, unspecified; F32.9 Major depressive disorder, single episode, unspecified; E78.5 Hyperlipidemia, unspecified; I10 Essential (primary) hypertension; E66.9 Obesity, unspecified; I25.10 Atherosclerotic heart disease of native coronary artery without angina pectoris; I31.9 Disease of pericardium, unspecified; M79.89 Other specified soft tissue disorders; Z88.0 Allergy status to penicillin; Z79.82 Long term (current) use of aspirin; Z79.899 Other long term (current) drug therapy; Z98.890 Other specified postprocedural states; Z68.35 Body mass index [BMI] 35.0-35.9, adult
CPT/HCPCS: 19120; 88307; J1885; J2001; J2250; J2405; J2704; J3010; J3490; J7120; 00400; A9270-GY

== ENCOUNTER 2024-09-26 15:46 | Emergency (ER) | payer OTHER ==
[2024-09-26] MEDS ORDERED: Sodium Chloride 0.9% 10 ML Syringe FLUSH PRN (16:30)
[2024-09-26 16:53] LABS: BASOPHILS ABSOLUTE AUTO 0.03 K/uL (0.00-0.20); BASOPHILS PERCENT AUTO 0.4 % (0.0-1.0); EOSINOPHILS ABSOLUTE AUTO 0.15 K/uL (0.00-0.45); EOSINOPHILS PERCENT AUTO 2.1 % (0.0-6.0); HEMATOCRIT 39.6 % (42.0-52.0); HEMOGLOBIN 13.8 g/dL (14.0-18.0); IMMATURE GRAN ABSOLUTE AUTO 0.01 K/uL (0.00-0.05); IMMATURE GRAN PERCENT AUTO 0.1 % (0.0-0.4); LYMPHOCYTES ABSOLUTE AUTO 1.38 K/uL (1.00-4.80); LYMPHOCYTES PERCENT AUTO 19.4 % (24.0-44.0); MEAN CORPUSCULAR HEMOGLOBIN 31.4 pg (28.0-32.0); MEAN CORPUSCULAR HGB CONC 34.8 g/dL (32.0-36.0); MEAN PLATELET VOLUME 10.5 fL (9.4-12.4); MONOCYTES ABSOLUTE AUTO 0.51 K/uL (0.00-0.80); MONOCYTES PERCENT AUTO 7.2 % (0.0-8.0); NEUTROPHILS ABSOLUTE AUTO 5.04 K/uL (1.80-7.70); NEUTROPHILS PERCENT AUTO 70.8 % (41.0-71.0); PLATELET COUNT,PLT 215 K/uL (150-400); WHITE BLOOD CELL COUNT,WBC 7.12 K/uL (3.9-11.3)
[2024-09-26 16:54] LABS: A/G RATIO 1.1 (0.9-1.6); ALBUMIN 3.9 g/dL (3.4-5.0); BILIRUBIN TOTAL 0.4 mg/dL (0.2-1.0); CALCIUM 9.6 mg/dL (8.5-10.1); CARBON DIOXIDE,CO2 28.4 mmol/L (21.0-32.0); CREATININE 1.1 mg/dL (0.8-1.3); EST CRCL DRUG DOSING (CG) 57.19 mL/min; POTASSIUM,K 4.3 mmol/L (3.5-5.1); PROTEIN TOTAL,TP 7.3 g/dL (6.4-8.2)
[2024-09-26] MEDS: Aspirin 81 MG Tab.Chew PO ONE (17:00)
[2024-09-26] MEDS ORDERED: Heparin Sodium/0.45% NaCl 25,000 UNITS/250 ML BAG IV SCH (19:30)
[2024-09-26] MEDS: Heparin Sodium 5,000 Units/ML Vial IVPUSH ONE (19:34)
[2024-09-26] MEDS: Heparin Sodium/0.45% NaCl 25,000 UNITS/250 ML BAG IV SCH (19:40)
[2024-09-26] MEDS: Nitroglycerin 0.4 MG Tab.SL SL PRN (20:37)
== END 2024-09-26 21:30 ==
LOC: MW.ED 15:46
DX: I21.4 Non-ST elevation (NSTEMI) myocardial infarction (principal); I25.10 Atherosclerotic heart disease of native coronary artery without angina pectoris; E78.00 Pure hypercholesterolemia, unspecified; J45.909 Unspecified asthma, uncomplicated; M19.90 Unspecified osteoarthritis, unspecified site; E66.9 Obesity, unspecified; Z68.39 Body mass index [BMI] 39.0-39.9, adult; Z86.73 Personal history of transient ischemic attack (TIA), and cerebral infarction without residual deficits; Z90.49 Acquired absence of other specified parts of digestive tract; Z95.5 Presence of coronary angioplasty implant and graft; Z96.659 Presence of unspecified artificial knee joint; Z88.0 Allergy status to penicillin; Z79.51 Long term (current) use of inhaled steroids; Z79.82 Long term (current) use of aspirin; Z79.899 Other long term (current) drug therapy
CPT/HCPCS: 36415; 71045; 80053; 84484; 85025; 85730; 93005; 96365; 96366; 99285; A9270; J1644; 93010

== ENCOUNTER 2025-03-20 05:08 | Emergency (ER) | payer OTHER, MEDICARE ==
[2025-03-20] MEDS: Albuterol/Ipratropium 3.0-0.5 MG/3 ML Neb Soln NEB ONE (05:21)
[2025-03-20 05:23] LABS: BASOPHILS ABSOLUTE AUTO 0.04 K/uL (0.00-0.20); BASOPHILS PERCENT AUTO 0.5 % (0.0-1.0); EOSINOPHILS ABSOLUTE AUTO 0.25 K/uL (0.00-0.45); EOSINOPHILS PERCENT AUTO 2.8 % (0.0-6.0); HEMATOCRIT 38.7 % (42.0-52.0); HEMOGLOBIN 13.3 g/dL (14.0-18.0); IMMATURE GRAN ABSOLUTE AUTO 0.03 K/uL (0.00-0.05); IMMATURE GRAN PERCENT AUTO 0.3 % (0.0-0.4); LYMPHOCYTES ABSOLUTE AUTO 2.22 K/uL (1.00-4.80); MEAN CORPUSCULAR HEMOGLOBIN 31.3 pg (28.0-32.0); MEAN CORPUSCULAR HGB CONC 34.4 g/dL (32.0-36.0); MEAN CORPUSCULAR VOLUME 91.1 fL (83.0-99.0); MEAN PLATELET VOLUME 10.8 fL (9.4-12.4); MONOCYTES ABSOLUTE AUTO 0.66 K/uL (0.00-0.80); MONOCYTES PERCENT AUTO 7.4 % (0.0-8.0); NEUTROPHILS ABSOLUTE AUTO 5.67 K/uL (1.80-7.70); PLATELET COUNT,PLT 263 K/uL (150-400); RED BLOOD CELL COUNT 4.25 M/uL (4.52-5.90); WHITE BLOOD CELL COUNT,WBC 8.87 K/uL (3.9-11.3)
[2025-03-20] MEDS: Sodium Chloride 0.9% 500 ML IV ONE (05:24)
[2025-03-20 05:53] LABS: A/G RATIO 1.1 (0.9-1.6); ALBUMIN 3.6 g/dL (3.4-5.0); BILIRUBIN TOTAL 0.4 mg/dL (0.2-1.0); CALCIUM 8.8 mg/dL (8.5-10.1); CARBON DIOXIDE,CO2 26.8 mmol/L (21.0-32.0); CREATININE 1.1 mg/dL (0.8-1.3); EST CRCL DRUG DOSING (CG) 56.39 mL/min; POTASSIUM,K 3.7 mmol/L (3.5-5.1); PROTEIN TOTAL,TP 6.9 g/dL (6.4-8.2)
[2025-03-20] MEDS: methylPREDNISolone Sodium Succinate 40 MG/1 ML SDV IM ONE (07:23)
== END 2025-03-20 07:32 | disposition home or self-care (01) ==
LOC: MW.ED 05:08
DX: J45.901 Unspecified asthma with (acute) exacerbation (principal); I25.2 Old myocardial infarction; I25.10 Atherosclerotic heart disease of native coronary artery without angina pectoris; E78.00 Pure hypercholesterolemia, unspecified; K21.9 Gastro-esophageal reflux disease without esophagitis; Z88.0 Allergy status to penicillin; Z79.51 Long term (current) use of inhaled steroids; Z79.82 Long term (current) use of aspirin; Z79.899 Other long term (current) drug therapy; Z86.73 Personal history of transient ischemic attack (TIA), and cerebral infarction without residual deficits; Z95.5 Presence of coronary angioplasty implant and graft
CPT/HCPCS: 36415; 71045; 80053; 83690; 83880; 84484; 85025; 93005; 96372; 99285; J2919; J7620; 93010; 99283; A9270-GY